=== PATIENT | female | born 1940 | race Caucasian/White ===

== ENCOUNTER 2017-03-23 11:45 | Emergency (ER) | payer MEDICARE, OTHER ==
[2017-03-23 11:56] VITALS: BP 126/83
[2017-03-23] MEDS ORDERED: Sodium Chloride 0.9% 10 ML Syringe FLUSH PRN (12:03)
--- NOTE | 2017-03-23 12:15 | EDM.PDOC ---
ED HPI GENERAL MEDICAL PROBLEM - General Chief Complaint: Syncope Stated Complaint: [facility] Time Seen by Provider: 03/23/17 12:00 Source of Information: Reports: Patient, EMS, Significant Other History Limitations: Reports: Other (patient has dementia) - History of Present Illness INITIAL COMMENTS - FREE TEXT/NARRATIVE: 76-year-old female presents via [facility] for evaluation and treatment of a syncopal episode. The patient reports blacking out. Patient is pleasantly demented and cannot provide much additional history. Per EMS report she was found by [facility] alf staff on the ground. She was initially very confused. Her is present with her in the ER. He reports that she was more confused than normal. She is complaining of a slight headache but states she often gets headaches. No chest pain, shortness of breath , abdominal pain, nausea or vomiting. [facility] [place] [facility] [place] . She has a past medical history of atrial ablation is and is on Coumadin. Patient also had a valve replaced in 2016. Headache Pain Score (Numeric/FACES): 4 - Related Data Allergies Allergy/AdvReac Type Severity Reaction Status Date / Time GAL Inhibitors Allergy Swelling Verified 05/16/16 10:54 amoxicillin Allergy Hives Verified 05/16/16 10:54 Sulfa (Sulfonamide Allergy Cannot Verified 09/30/16 07:17 Antibiotics) Remember sulfacetamide Allergy Cannot Verified 05/16/16 10:54 Remember Home Meds: Home Meds Rosuvastatin [Crestor] 5 mg PO DAILY 08/10/15 [History] Acetaminophen [Tylenol] 650 mg PO Q4H PRN 12/29/15 [History] Furosemide [Lasix] 40 mg PO DAILY 12/29/15 [History] Metoprolol Tartrate 12.5 mg PO BID 12/29/15 [History] Pantoprazole [Protonix] 40 mg PO BID 12/29/15 [History] Potassium Chloride 20 meq PO BID 12/29/15 [History] Diltiazem [Cardizem CD] 120 mg PO DAILY #30 cap.cd 01/25/16 [Rx] Levothyroxine [Synthroid] 50 mcg PO ACBREAKFAST 03/23/17 [History] Sertraline [Zoloft] 25 mg PO DAILY 03/23/17 [History] Warfarin Sodium [Jantoven] 1 mg PO TU 03/23/17 [History] Warfarin Sodium [Jantoven] 2 mg PO DAILY 03/23/17 [History] Past Medical History HEENT History: Reports: Cataract Other HEENT History: macular pucker Cardiovascular History: Reports: Afib, High Cholesterol, Hypertension Respiratory History: Reports: SOB Gastrointestinal History: Reports: Chronic Constipation 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: Neurological History: Reports: Migraines Psychiatric History: Reports: Anxiety, Depression Oncologic (Cancer) History: Reports: Other (See Below) Other Oncologic History: 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 - Infectious Disease History Infectious Disease History: Reports: Chicken Pox, Measles, Mumps - Past Surgical History Cardiovascular Surgical History: Reports: Valve Replacement Female Surgical History: Reports: Hysterectomy Oncologic Surgical History: Reports: Bone Marrow Aspiration Social & Family History - Family History Family Medical History: Noncontributory Cardiac: Reports: Cardiomyopathy, Heart Failure, [place] Other Cardiac Family History: son [place], mother CHF GI: Reports: Other (See Below) Other GI Family History: father had part of intenstine removed : Reports: Renal Disease/Insufficiency Other Family History: mother OBGYN: Reports: Neurological: Reports: CVA Other Neurological Family History: father Endocrine/Metabolic: Reports: Diabetes, type II Other Endocrine/Metabolic Family History: mother Oncologic: Reports: Colon Other Oncologic Family History: father - Tobacco Use Smoking Status *Q: Never Smoker Second Hand Smoke Exposure: No - Caffeine Use Caffeine Use: Reports: Coffee - Recreational Drug Use Recreational Drug Use: No - Living Situation & Occupation Living situation: Reports: , with Spouse ED ROS GENERAL - Review of Systems Review Of Systems: See Below Constitutional: Denies: Fever Respiratory: Denies: Shortness of Breath Cardiovascular: Denies: Chest Pain GI/Abdominal: Denies: Abdominal Pain, Nausea, Vomiting Neurological: Reports: Headache (minor), Syncope - Physical Exam Exam: See Below Exam Limited By: No Limitations General Appearance: Alert, WD/WN, No Apparent Distress Eye Exam: Bilateral Eye: EOMI, PERRL Ears: Normal External Exam Nose: Normal Inspection Throat/Mouth: Normal Inspection, Normal Lips, Normal Voice, No Airway Compromise Neck: Normal Inspection Respiratory/Chest: No Respiratory Distress, Lungs Clear, Normal Breath Sounds Cardiovascular: Systolic Murmur, Irregularly Irregular GI/Abdominal: Soft, Non-Tender Neuro Exam (Abbreviated): Alert, Oriented, Normal Cognition Psychiatric: Normal Affect, Normal Mood Skin Exam: Warm, Dry, Normal Color EKG INTERPRETATION EKG Date: 03/23/17 Time: 12:00 Rhythm: A-Flutter Rate (Beats/Min): 93 Baldwin: Normal P-Wave: Present QRS: LBBB ST-T: Normal QT: Normal Comparison: No Change EKG Interpretation Comments: A.flutter at 93 bpm. LBBB. No cahgne from EKG 09-30-16 Repeat EKG at 17:28 shows a.flutter at 67 bpm with variable conduction Reviewed by myself and Dr. Patel. Course - Vital Signs Last Recorded V/S: Last Vital Signs Temp 36.3 C 03/23/17 11:53 Pulse 91 03/23/17 11:53 Resp 19 03/23/17 11:53 BP 126/83 03/23/17 11:53 Pulse Ox 94 L 03/23/17 11:53 Orthostatic Blood Pressure [ 116/72 Standing] Orthostatic Blood Pressure [ 118/69 Supine] - Orders/Labs/Meds Orders: Active Orders 24 hr Category Date Time Status Cardiac Monitoring [RC] . DIRECTED Care 03/23/17 12:01 Active EKG 12 Lead [EKG Documentation Completion] [RC] STAT Care 03/23/17 17:19 Active EKG Documentation Completion [RC] STAT Care 03/23/17 12:01 Active Orthostatic Vital Signs [RC] ASDIRECTED Care 03/23/17 15:10 Active Peripheral IV Care [RC] . DIRECTED Care 03/23/17 12:03 Active Peripheral IV Insertion Adult [OM.PC] Routine Oth 03/23/17 12:03 Ordered Labs: Laboratory Tests 03/23/17 03/23/17 03/23/17 Range/Units 12:30 12:30 12:30 WBC 4.98 (3.98-10.04) K/mm3 RBC 2.83 L (3.98-5.22) M/mm3 Hgb 9.7 L (11.2-15.7) gm/L Hct 32.3 L (34.1-44.9) % MCV 114.1 H (79.4-94.8) fl MCH 34.3 H (25.6-32.2) pg MCHC 30.0 L (32.2-35.5) g/dl RDW Std Deviation 67.5 H (36.4-46.3) fL Plt Count 703 H (182-369) K/mm3 MPV 10.8 (9.4-12.3) fl Neutrophils % (Manual) 70 H (40-60) % Band Neutrophils % 0 (0-10) % Lymphocytes % (Manual) 25 (20-40) % Atypical Lymphs % 0 % Monocytes % (Manual) 4 (2-10) % Eosinophils % (Manual) 1 (0.7-5.8) % Basophils % (Manual) 0 L (0.1-1.2) Platelet Estimate Marked inc Hypochromasia Moderate RBC Morph Comment Not Reportable PT 29.0 H (8.0-13.0) SECONDS INR 2.51 APTT 41 H (22-36) SECONDS Sodium 138 (136-145) mEq/L Potassium 4.2 (3.5-5.1) mEq/L Chloride 102 (98-107) mEq/L Carbon Dioxide 29 (21-32) mEq/L Anion Gap 11.2 (5-15) BUN 23 H (7-18) mg/dL Creatinine 1.0 (0.55-1.02) mg/dL Est Cr Clr Drug Dosing 40.68 mL/min Estimated GFR (MDRD) 54 (>60) mL/min BUN/Creatinine Ratio 23.0 H (14-18) Glucose 114 (83-115) mg/dL Calcium 9.1 (8.5-10.1) mg/dL Total Bilirubin 0.7 (0.2-1.0) mg/dL AST 44 H (15-37) U/L ALT 39 (14-59) U/L Alkaline Phosphatase 115 (46-116) U/L CK-MB (CK-2) 2.0 (0-3.6) ng/ml Troponin I 0.021 (0.00-0.056) ng/mL Nnd-D-Uwinyzbxnmo Pept 2385 H (0-450) pg/mL Total Protein 7.5 (6.4-8.2) g/dl Albumin 3.8 (3.4-5.0) g/dl Globulin 3.7 gm/dL Albumin/Globulin Ratio 1.0 (1-2) Urine Color (Yellow) Urine Appearance (Clear) Urine pH (5.0-8.0) Ur Specific Dalton (1.005-1.030) Urine Protein (Negative) Urine Glucose (UA) (Negative) Urine Ketones (Negative) Urine Occult Blood (Negative) Urine Nitrite (Negative) Urine Bilirubin (Negative) Urine Urobilinogen (0.2-1.0) Ur Leukocyte Esterase (Negative) Urine RBC (0-5) /hpf Urine WBC (0-5) /hpf Ur Epithelial Cells (0-5) /hpf Urine Bacteria (FEW) /hpf Urine Mucus (FEW) /hpf 03/23/17 Range/Units 14:55 WBC (3.98-10.04) K/mm3 RBC (3.98-5.22) M/mm3 Hgb (11.2-15.7) gm/L Hct (34.1-44.9) % MCV (79.4-94.8) fl MCH (25.6-32.2) pg MCHC (32.2-35.5) g/dl RDW Std Deviation (36.4-46.3) fL Plt Count (182-369) K/mm3 MPV (9.4-12.3) fl Neutrophils % (Manual) (40-60) % Band Neutrophils % (0-10) % Lymphocytes % (Manual) (20-40) % Atypical Lymphs % % Monocytes % (Manual) (2-10) % Eosinophils % (Manual) (0.7-5.8) % Basophils % (Manual) (0.1-1.2) Platelet Estimate Hypochromasia RBC Morph Comment PT (8.0-13.0) SECONDS INR APTT (22-36) SECONDS Sodium (136-145) mEq/L Potassium (3.5-5.1) mEq/L Chloride (98-107) mEq/L Carbon Dioxide (21-32) mEq/L Anion Gap (5-15) BUN (7-18) mg/dL Creatinine (0.55-1.02) mg/dL Est Cr Clr Drug Dosing mL/min Estimated GFR (MDRD) (>60) mL/min BUN/Creatinine Ratio (14-18) Glucose (83-115) mg/dL Calcium (8.5-10.1) mg/dL Total Bilirubin (0.2-1.0) mg/dL AST (15-37) U/L ALT (14-59) U/L Alkaline Phosphatase (46-116) U/L CK-MB (CK-2) (0-3.6) ng/ml Troponin I (0.00-0.056) ng/mL Otd-S-Nuucwhyhhrk Pept (0-450) pg/mL Total Protein (6.4-8.2) g/dl Albumin (3.4-5.0) g/dl Globulin gm/dL Albumin/Globulin Ratio (1-2) Urine Color Yellow (Yellow) Urine Appearance Clear (Clear) Urine pH 7.0 (5.0-8.0) Ur Specific Dalton 1.020 (1.005-1.030) Urine Protein 1+ H (Negative) Urine Glucose (UA) Negative (Negative) Urine Ketones Negative (Negative) Urine Occult Blood Negative (Negative) Urine Nitrite Negative (Negative) Urine Bilirubin Negative (Negative) Urine Urobilinogen 1.0 (0.2-1.0) Ur Leukocyte Esterase Negative (Negative) Urine RBC Not seen (0-5) /hpf Urine WBC 0-5 (0-5) /hpf Ur Epithelial Cells 0-5 (0-5) /hpf Urine Bacteria Not seen (FEW) /hpf Urine Mucus Not seen (FEW) /hpf Meds: Medications Discontinued Medications Generic Name Dose Route Start Last Admin Trade Name Lucianoq PRN Reason Stop Dose Admin Acetaminophen 650 mg 03/23/17 15:52 03/23/17 15:56 Tylenol PO 03/23/17 15:53 650 mg NOW ONE Administration Sodium Chloride 1,000 mls @ 75 mls/hr 03/23/17 17:45 03/23/17 17:44 Normal Saline IV 75 mls/hr ASDIRECTED ELOY Administration Sodium Chloride 10 ml 03/23/17 12:03 03/23/17 12:31 Saline Flush FLUSH 10 ml ASDIRECTED PRN Administration Keep Vein Open - Radiology Interpretation Free Text/Narrative:: Chest [address] Sparks: 1. Minimal blunting of the right lateral costophrenic angle compatible with minimal pleural effusion CT of the head without contrast impression per Dr. Sparks: 1. Minimal area of increased density next to the foramen of Monro. Uncertain if this is due to a small ill-defined colloid cyst of less likely minimal hemorrhage. Follow-up noncontrast head CT recommended in 48 hours to make sure findings are stable. 2. Mild senescent change as described. 3. Nothing acute is otherwise seen on noncontrast head CT exam. CT Results Date: 03/23/17 - Re-Assessments/Exams Free Text/Narrative Re-Assessment/Exam: 03/23/17 17:58 labs returned with the following. Sodium 138, potassium 4.2 and chloride 102. Glucose 114. Creatinine 1.0. With blood cell count 4.98, hemoglobin 9.7 and platelets are 73. Of note patient has a past medical history of MDS. She chronically has a low hemoglobin and elevated platelets. PTT 29, INR 2.51. PTT 41. BNP 2385. troponin 0.021, within normal limits. CK-MB within normal limits at 2.0. UA has 1+ protein. I have reviewed the labs, EKG and imaging results with the patient and her . I felt given her CT scan, the fact she is on Coumadin that she should be admitted to our hospital. I spoke with our hospitalist, Dr. Ruggiero, who agreed to the admission. I spoke with our radiologist, Dr. Garcia, regarding an MRI versus obtaining a repeat CT scanning 48 hours. He felt given our MRI capabilities here that it would not show up on MRI. He recommended the follow- up CT in 48 hours as stated in this report. while The patient was waiting to be transferred to the floor. She had an 8 second positive on telemetry followed up by a beat and then by an additional 4 second pause. She was lying down at that time. Did not seem that she passed out. Her heart rate then went down into the 40s. Of note she had been in the 80s to 90s prior to this happening. This was the first event in the ER. Occurred around 17:00. Dr. Ruggiero, hospitalist was made aware of this. She recommended that we transfer the patient to [facility], she may need a pacemaker. I spoke with hospitalist, Dr.Al Ervin, he recommended holding her medications and monitoring her over the weekend. I spoke with our hospitalist, Dr. Ruggiero, regarding this. She did not feel comfortable with this plan and requested transfer to [facility]. I called same [facility] back. The agreed to accept the patient. Patient will go by ambulance. Departure - Departure Time of Disposition: 18:25 Disposition: DC/Tfer to Acute Hospital 02 Condition: Serious Clinical Impression: Symptomatic bradycardia, Syncope - Discharge Information Forms: ED Department Discharge Additional Instructions: Patient to go by ground ambulance to Dr. Prateek Lilly accepting. Patient to be a direct admission. - My Orders Last 24 Hours: My Active Orders 03/23/17 12:01 Cardiac Monitoring [RC] . DIRECTED EKG Documentation Completion [RC] STAT 03/23/17 12:03 Peripheral IV Care [RC] . DIRECTED Peripheral IV Insertion Adult [OM.PC] Routine 03/23/17 15:10 Orthostatic Vital Signs [RC] ASDIRECTED 03/23/17 17:19 EKG 12 Lead [EKG Documentation Completion] [RC] STAT - Assessment/Plan Last 24 Hours: My Active Orders 03/23/17 12:01 Cardiac Monitoring [RC] . DIRECTED EKG Documentation Completion [RC] STAT 03/23/17 12:03 Peripheral IV Care [RC] . DIRECTED Peripheral IV Insertion Adult [OM.PC] Routine 03/23/17 15:10 Orthostatic Vital Signs [RC] ASDIRECTED 03/23/17 17:19 EKG 12 Lead [EKG Documentation Completion] [RC] STAT
--- NOTE | 2017-03-23 12:50 | CT ---
Head CT Technique: Multiple axial sections through the brain were obtained. Intravenous contrast was not utilized. Comparison: No prior head CT, previous MRI brain dated 04/04/15. Findings: Slight increased density seen next to the foramen of Monro. Uncertain if this represents an ill-defined small colloid cyst or less likely a minimal hemorrhage. No corresponding finding is seen on the MRI although given the characteristics of this, this could easily not show up on the MRI. Ventricles along the basal cisterns and sulci over convexities are mildly prominent. Minimal diminished density is noted within the periventricular white matter compatible with small vessel ischemic demyelination change. No other abnormal parenchymal densities are seen. No midline shift or mass effect is seen. Atherosclerotic calcification is seen within the vertebral vessels and within the carotid siphon. Bone window settings were reviewed showing no discrete calvarial abnormality. Impression: 1. Minimal area of increased density next to the foramen of Monro. As mentioned above, uncertain if this is due to a small ill-defined colloid cyst or less likely minimal hemorrhage. Follow-up noncontrast head CT recommended in 48 hours to make sure findings are stable. 2. Mild senescent change as described above. 3. Nothing acute is otherwise seen on noncontrast head CT exam. Diagnostic code #3
--- NOTE | 2017-03-23 13:22 | CR ---
Chest: Frontal view of the chest was obtained. Comparison: Previous chest x-ray of 09/30/16. Previous pleural effusion shows significant improvement from prior exam. Minimal blunting of the right lateral costophrenic angle remains. Slight scarring is noted within the left retrocardiac region. Lungs otherwise are clear. Sternotomy is noted for prosthetic heart valve. Bony structures are grossly intact. Impression: 1. Minimal blunting of the right lateral costophrenic angle compatible with minimal pleural effusion. 2. Other incidental findings as described above. Diagnostic code #2
[2017-03-23] MEDS ORDERED: Acetaminophen 325 MG Tab PO ONE (15:52)
[2017-03-23] MEDS ORDERED: Sodium Chloride 0.9% 1,000 ML IV SCH (17:45)
== END 2017-03-23 18:50 ==
LOC: JD.ED 11:45 → SUPCPDRO 11:45 → JD.ED 18:50
DX: R00.1 Bradycardia, unspecified (principal); R55 Syncope and collapse; I10 Essential (primary) hypertension; I48.91 Unspecified atrial fibrillation; R06.02 Shortness of breath; E78.00 Pure hypercholesterolemia, unspecified; F32.9 Major depressive disorder, single episode, unspecified; Z90.710 Acquired absence of both cervix and uterus; Z95.2 Presence of prosthetic heart valve; Z79.01 Long term (current) use of anticoagulants; Z79.899 Other long term (current) drug therapy; Z88.0 Allergy status to penicillin; Z88.1 Allergy status to other antibiotic agents; Z88.2 Allergy status to sulfonamides
CPT/HCPCS: 36415; 70450; 71010; 80053; 81001; 82553; 83880; 84484; 85025; 85610; 85730; 93005; 96360; 99285; A9270; J7040; J7050; 99284

== ENCOUNTER 2017-04-17 20:14 | Emergency (ER) | payer MEDICARE, OTHER ==
[2017-04-17 20:45] VITALS: BP 130/70
--- NOTE | 2017-04-17 22:43 | EDM.PDOC ---
ED HPI GENERAL MEDICAL PROBLEM - General Chief Complaint: Neurological Problem Stated Complaint: NOT HERSELF/HARD TIME BREATHING Time Seen by Provider: 04/17/17 20:43 Source of Information: Reports: Patient, Family (, daughter), RN Notes Reviewed History Limitations: Reports: Other (Confusion - likely dementia) - History of Present Illness INITIAL COMMENTS - FREE TEXT/NARRATIVE: The patient's and daughter states that the patient has been experiencing progressively worsening confusion since November 2015, when she had a porcine aortic valve replacement. On 03/26/2017 she underwent a pacemaker placement at [facility], and the family states that she has been progressively lethargic and weak since then. She stays in bed all day, and the has great difficulty getting her up. Today he was unable to convince the patient to get up, prompting this ED visit. They deny recent fever, nausea, vomiting, urinary symptoms, cough, or chest pain. The patient suffers from chronic constipation. The patient has chronic low back pain, and has not been able to get to the bathroom in time to urinate, therefore has had some urinary accidents. She is now wearing Depends. The patient's notes that the patient ordinarily takes both Lasix and potassium chloride, however, because of the urine situation, he withheld Lasix both yesterday and today. The patient is on supplemental oxygen, 2 L as needed. Her oxygen saturation here in the ED is 84% on room air, 93% on 2 L. The patient's PCP is Dr. Russell. - Related Data Allergies Allergy/AdvReac Type Severity Reaction Status Date / Time GAL Inhibitors Allergy Swelling Verified 05/16/16 10:54 amoxicillin Allergy Hives Verified 05/16/16 10:54 doxycycline Allergy Swelling Verified 04/17/17 22:20 Sulfa (Sulfonamide Allergy Cannot Verified 09/30/16 07:17 Antibiotics) Remember sulfacetamide Allergy Cannot Verified 05/16/16 10:54 Remember Home Meds: Home Meds Rosuvastatin [Crestor] 5 mg PO BEDTIME 08/10/15 [History] Acetaminophen [Tylenol] 650 mg PO Q4H PRN 12/29/15 [History] Furosemide [Lasix] 60 mg PO DAILY 12/29/15 [History] Metoprolol Tartrate 25 mg PO TID 12/29/15 [History] Pantoprazole [Protonix] 40 mg PO BID 12/29/15 [History] Potassium Chloride 20 meq PO DAILY 12/29/15 [History] Diltiazem [Cardizem CD] 120 mg PO DAILY #30 cap.cd 01/25/16 [Rx] Levothyroxine [Synthroid] 75 mcg PO ACBREAKFAST 03/23/17 [History] Sertraline [Zoloft] 25 mg PO DAILY 03/23/17 [History] Warfarin Sodium [Jantoven] 2 mg PO SUTUWETHSA 03/23/17 [History] Warfarin Sodium [Jantoven] 3 mg PO MOFR 03/23/17 [History] Sennosides/Docusate Sodium [Senna-Docusate Sodium] 8.6 - 50 mg PO DAILY [History] Past Medical History HEENT History: Reports: Impaired Vision (Macular degeneration) Cardiovascular History: Reports: Arrhythmia (A-fib/A-flutter), Heart Failure, High Cholesterol, Hypertension Gastrointestinal History: Reports: PUD STRIKER OUT History: Reports: Psychiatric History: Reports: Anxiety, Depression Endocrine/Metabolic History: Reports: Hypothyroidism Oncologic (Cancer) History: Reports: Other (See Below) (Myelodysplastic syndrome ) - Infectious Disease History Infectious Disease History: Reports: Chicken Pox, Measles, Mumps - Past Surgical History HEENT Surgical History: Reports: Oral Surgery ([place] teeth extraction), Tonsillectomy Cardiovascular Surgical History: Reports: Pacer (dual-chamber, 03/26/2017 at [facility]), Valve Replacement (porcine aortic, November 2015), Other (See Below) (Left artial appendage clip, November 2015) GI Surgical History: Reports: Appendectomy (possible incidental with hysterectomy) Female Surgical History: Reports: Hysterectomy, Salpingo-Oophorectomy Oncologic Surgical History: Reports: Bone Marrow Aspiration Social & Family History - Family History Family Medical History: Noncontributory Cardiac: Reports: Cardiomyopathy, Heart Failure, [place] Other Cardiac Family History: son [place], mother CHF GI: Reports: Other (See Below) Other GI Family History: father had part of intenstine removed : Reports: Renal Disease/Insufficiency Other Family History: mother OBGYN: Reports: Neurological: Reports: CVA Other Neurological Family History: father Endocrine/Metabolic: Reports: Diabetes, type II Other Endocrine/Metabolic Family History: mother Oncologic: Reports: Colon Other Oncologic Family History: father - Tobacco Use Smoking Status *Q: Never Smoker Second Hand Smoke Exposure: No - Caffeine Use Caffeine Use: Reports: Coffee - Alcohol Use Alcohol Use History: No - Recreational Drug Use Recreational Drug Use: No - Living Situation & Occupation Living situation: Reports: , with Spouse Occupation: Retired ED ROS GENERAL - Review of Systems Review Of Systems: See Below Constitutional: Reports: Fatigue. Denies: Fever HEENT: Reports: No Symptoms Respiratory: Denies: Cough Cardiovascular: Denies: Chest Pain Endocrine: Reports: No Symptoms GI/Abdominal: Reports: Constipation (chronic). Denies: Diarrhea, Nausea, Vomiting : Denies: Dysuria Musculoskeletal: Reports: No Symptoms Skin: Reports: No Symptoms Neurological: Reports: Confusion Psychiatric: Reports: No Symptoms, Depression Hematologic/Lymphatic: Reports: No Symptoms Immunologic: Reports: No Symptoms ED EXAM, GENERAL - Physical Exam Exam: See Below Exam Limited By: No Limitations General Appearance: Alert, WD/WN, No Apparent Distress Eye Exam: Bilateral Eye: Normal Inspection Ears: Normal External Exam, Hearing Grossly Normal Nose: Normal Inspection, No Blood Throat/Mouth: Normal Inspection, Normal Lips, Normal Voice, No Airway Compromise Head: Atraumatic, Normocephalic Neck: Normal Inspection, Full Range of Motion Respiratory/Chest: No Respiratory Distress, Lungs Clear, No Accessory Muscle Use , Crackles (right baseonly, otherwise CTAB). No: Rhonchi, Wheezing Cardiovascular: Normal Peripheral Pulses, No Gallop, No JVD, No Murmur, No Rub, Irregularly Irregular. No: Tachycardia Peripheral Pulses: 4+: Radial (L), Radial (R) GI/Abdominal: Normal Bowel Sounds, Soft, Non-Tender, No Organomegaly, No Distention, No Abnormal Bruit, No Mass (Female) Exam: Deferred Rectal (Female) Exam: Deferred Back Exam: Normal Inspection, Full Range of Motion, NT Extremities: Normal Inspection, Normal Range of Motion, Normal Capillary Refill , Other (Bilateral lower extremity compression stockings with underlying mild edema) Neurological: Alert, No Motor/Sensory Deficits, Confused, Disoriented, Memory Loss Recent Events. No: Memory Loss Remote Events Psychiatric: Normal Affect Skin Exam: Warm, Dry, Intact, Normal Color, No Rash Lymphatic: No Adenopathy EKG INTERPRETATION EKG Date: 04/17/17 Time: 21:42 Rhythm: A-Flutter (Variable 3:1 to 4:1 conduction) Rate (Beats/Min): 95 [place]: LAD-Left [place]ondo Deviation P-Wave: Present QRS: Wide (LAFB) ST-T: Normal QT: Normal Comparison: No Change (03/23/2017) Course - Vital Signs Last Recorded V/S: Last Vital Signs Temp 37.0 C 04/17/17 20:43 Pulse 96 04/17/17 20:43 Resp 27 H 04/17/17 20:43 BP 130/70 04/17/17 20:43 Pulse Ox 97 04/17/17 20:43 - Orders/Labs/Meds Orders: Active Orders 24 hr Category Date Time Status EKG Documentation Completion [RC] STAT Care 04/17/17 21:07 Active Chest 1V Frontal [CR] Stat Exams 04/17/17 21:09 Taken Head wo Cont [CT] Stat Exams 04/17/17 21:09 Taken CULTURE BLOOD [BC] Stat Lab 04/17/17 21:30 Received CULTURE BLOOD [BC] Stat Lab 04/17/17 21:37 Received Blood Culture x2 Reflex Set [OM.PC] Stat Oth 04/17/17 21:07 Ordered Labs: Laboratory Tests 04/17/17 04/17/17 04/17/17 Range/Units 20:59 20:59 20:59 WBC 6.47 (3.98-10.04) K/mm3 RBC 2.80 L (3.98-5.22) M/mm3 Hgb 9.7 L (11.2-15.7) gm/L Hct 31.6 L (34.1-44.9) % MCV 112.9 H (79.4-94.8) fl MCH 34.6 H (25.6-32.2) pg MCHC 30.7 L (32.2-35.5) g/dl RDW Std Deviation 72.3 H (36.4-46.3) fL Plt Count 560 H (182-369) K/mm3 MPV 11.3 (9.4-12.3) fl Neutrophils % (Manual) 71 H (40-60) % Band Neutrophils % 0 (0-10) % Lymphocytes % (Manual) 16 L (20-40) % Atypical Lymphs % 0 % Monocytes % (Manual) 12 H (2-10) % Eosinophils % (Manual) 1 (0.7-5.8) % Basophils % (Manual) 0 L (0.1-1.2) Platelet Estimate Increased Plt Morphology Comment See note Poikilocytosis 2+ moderate Anisocytosis 1+ slight Tear Drop Cells 1+ slight Stomatocytes 1+ slight Helmet Cells 1+ slight RBC Morph Comment Not Reportable PT 54.8 H* (8.0-13.0) SECONDS INR 4.56 APTT 53 H (22-36) SECONDS D-Dimer, Quantitative 1.16 H (0.19-0.59) mg/L Puncture Site ABG pH (7.35-7.45) ABG pCO2 (35.0-45.0) mmHg ABG pO2 (80.0-100.0) mmHg ABG HCO3 (22.0-26.0) meq/L ABG O2 Saturation (96.0-97.0) % ABG Base Excess (-2-2.0) O2 Delivery Device Oxygen Flow Rate FiO2 (21.00-100.00) % Sodium 137 (136-145) mEq/L Potassium 4.2 (3.5-5.1) mEq/L Chloride 101 (98-107) mEq/L Carbon Dioxide 31 (21-32) mEq/L Anion Gap 9.2 (5-15) BUN 18 (7-18) mg/dL Creatinine 0.9 (0.55-1.02) mg/dL Est Cr Clr Drug Dosing 45.20 mL/min Estimated GFR (MDRD) > 60 (>60) mL/min BUN/Creatinine Ratio 20.0 H (14-18) Glucose 132 H (83-115) mg/dL Lactic Acid (0.4-2.0) mmol/L Calcium 9.6 (8.5-10.1) mg/dL Magnesium 2.2 (1.8-2.4) mg/dl Total Bilirubin 0.7 (0.2-1.0) mg/dL AST 31 (15-37) U/L ALT 31 (14-59) U/L Alkaline Phosphatase 153 H (46-116) U/L Troponin I 0.030 (0.00-0.056) ng/mL NT-Pro-B Natriuret Pep 3167 H (0-450) pg/mL Total Protein 7.9 (6.4-8.2) g/dl Albumin 3.4 (3.4-5.0) g/dl Globulin 4.5 gm/dL Albumin/Globulin Ratio 0.8 L (1-2) Urine Color (Yellow) Urine Appearance (Clear) Urine pH (5.0-8.0) Ur Specific [place] (1.005-1.030) Urine Protein (Negative) Urine Glucose (UA) (Negative) Urine Ketones (Negative) Urine Occult Blood (Negative) Urine Nitrite (Negative) Urine Bilirubin (Negative) Urine Urobilinogen (0.2-1.0) Ur Leukocyte Esterase (Negative) Urine RBC (0-5) /hpf Urine WBC (0-5) /hpf Ur Epithelial Cells (0-5) /hpf Urine Bacteria (FEW) /hpf Urine Mucus (FEW) /hpf 04/17/17 04/17/17 04/17/17 Range/Units 21:07 21:30 22:19 WBC (3.98-10.04) K/mm3 RBC (3.98-5.22) M/mm3 Hgb (11.2-15.7) gm/L Hct (34.1-44.9) % MCV (79.4-94.8) fl MCH (25.6-32.2) pg MCHC (32.2-35.5) g/dl RDW Std Deviation (36.4-46.3) fL Plt Count (182-369) K/mm3 MPV (9.4-12.3) fl Neutrophils % (Manual) (40-60) % Band Neutrophils % (0-10) % Lymphocytes % (Manual) (20-40) % Atypical Lymphs % % Monocytes % (Manual) (2-10) % Eosinophils % (Manual) (0.7-5.8) % Basophils % (Manual) (0.1-1.2) Platelet Estimate Plt Morphology Comment Poikilocytosis Anisocytosis Tear Drop Cells Stomatocytes Helmet Cells RBC Morph Comment PT (8.0-13.0) SECONDS INR APTT (22-36) SECONDS D-Dimer, Quantitative (0.19-0.59) mg/L Puncture Site Lt radial ABG pH 7.55 H (7.35-7.45) ABG pCO2 29.1 L (35.0-45.0) mmHg ABG pO2 93.0 (80.0-100.0) mmHg ABG HCO3 25.4 (22.0-26.0) meq/L ABG O2 Saturation 98.8 H (96.0-97.0) % ABG Base Excess 3.0 H (-2-2.0) O2 Delivery Device Nasal cannula Oxygen Flow Rate 2.0 FiO2 0.00 L (21.00-100.00) % Sodium (136-145) mEq/L Potassium (3.5-5.1) mEq/L Chloride (98-107) mEq/L Carbon Dioxide (21-32) mEq/L Anion Gap (5-15) BUN (7-18) mg/dL Creatinine (0.55-1.02) mg/dL Est Cr Clr Drug Dosing mL/min Estimated GFR (MDRD) (>60) mL/min BUN/Creatinine Ratio (14-18) Glucose (83-115) mg/dL Lactic Acid 0.9 (0.4-2.0) mmol/L Calcium (8.5-10.1) mg/dL Magnesium (1.8-2.4) mg/dl Total Bilirubin (0.2-1.0) mg/dL AST (15-37) U/L ALT (14-59) U/L Alkaline Phosphatase (46-116) U/L Troponin I (0.00-0.056) ng/mL NT-Pro-B Natriuret Pep (0-450) pg/mL Total Protein (6.4-8.2) g/dl Albumin (3.4-5.0) g/dl Globulin gm/dL Albumin/Globulin Ratio (1-2) Urine Color Yellow (Yellow) Urine Appearance Clear (Clear) Urine pH 6.5 (5.0-8.0) Ur Specific [place] 1.025 (1.005-1.030) Urine Protein 1+ H (Negative) Urine Glucose (UA) Negative (Negative) Urine Ketones Negative (Negative) Urine Occult Blood Negative (Negative) Urine Nitrite Negative (Negative) Urine Bilirubin 1+ H (Negative) Urine Urobilinogen 4.0 H (0.2-1.0) Ur Leukocyte Esterase Negative (Negative) Urine RBC 0-5 (0-5) /hpf Urine WBC 0-5 (0-5) /hpf Ur Epithelial Cells 0-5 (0-5) /hpf Urine Bacteria Not seen (FEW) /hpf Urine Mucus Not seen (FEW) /hpf - Re-Assessments/Exams Free Text/Narrative Re-Assessment/Exam: 04/17/17 22:10 Portable chest radiograph reviewed. There is cardiomegaly, but no pulmonary vascular congestion to suggest decompensated CHF. No pleural effusions seen on this AP view. No focal infiltrate. No pneumothorax. Elevated right hemidiaphragm noted. Sternotomy wires noted. Radiopaque left atrial appendage clip and prosthetic heart valve hardware noted. RA and RV chamber pacemaker noted on the left. Formal read per the Radiologist pending. 04/17/17 22:36 CT of the head without contrast is read by [facility] as "No acute findings". 04/17/17 22:48 The patient's D-dimer is elevated at 1.16, however, her INR is supratherapeutic at 4.56. 04/17/17 23:35 Test results discussed at length with the patient's and daughter. Today' s workup demonstrates acute respiratory alkalosis on the ABG, likely due to anxiety. The patient's refusal to get out of bed at home is likely related to depression. The patient's states that she was off her antidepressant for some time, only restarted about 2 weeks ago. These medicines often take 3 or 4 weeks before they become effective. In addition, the patient likely has dementia. The remainder of her workup is unremarkable. As above, she has modest anemia, around her baseline. Her BNP is elevated, but her chest radiograph is not consistent with decompensated CHF. I am not recommending any change in her management at this time. I do not see an indication for admission to the hospital. I am recommending follow-up with Dr. Russell this week, if possible. Departure - Departure Time of Disposition: 23:37 Disposition: Home, Self-Care 01 Condition: Good Clinical Impression: Depression with anxiety, Anemia, Dementia CHF (congestive heart failure) Qualifiers: Congestive heart failure type: diastolic Congestive heart failure chronicity: acute on chronic Qualified Code(s): I50.33 - Acute on chronic diastolic ( congestive) heart failure Atrial flutter Qualifiers: Atrial flutter type: unspecified Qualified Code(s): I48.92 - Unspecified atrial flutter - Discharge Information Instructions: Hyperventilation Referrals: Arsalan Russell MD [Primary Care Provider] - Forms: ED Department Discharge Additional Instructions: Mrs. Merritt was seen in the emergency room for confusion, lethargy, and generalized weakness. Workup in the ER included blood work, an ABG, 2 sets of blood cultures, a urinalysis, an ECG, a chest x-ray, and a CT scan of her head. Her workup showed that she has been hyperventilating, likely due to anxiety. Her ECG showed that she is in atrial flutter. Her INR (coumadin number) was found to be supratherapeutic at 4.56. You have already been instructed to withhold her Coumadin for 1 day. The remainder of her workup was unremarkable. She does not have pneumonia, a urinary tract infection, electrolyte abnormalities, a stroke, or a recent heart attack. Her unwillingness to get out of bed is likely related to depression, and she is likely suffering from dementia. We recommend you have her follow-up with Dr. Russell this week, if possible. If any other problems, please do not hesitate to return Mrs. Merritt to the ER. - My Orders Last 24 Hours: My Active Orders 04/17/17 21:07 EKG Documentation Completion [RC] STAT Blood Culture x2 Reflex Set [OM.PC] Stat 04/17/17 21:09 Chest 1V Frontal [CR] Stat Head wo Cont [CT] Stat 04/17/17 21:30 CULTURE BLOOD [BC] Stat 04/17/17 21:37 CULTURE BLOOD [BC] Stat - Assessment/Plan Last 24 Hours: My Active Orders 04/17/17 21:07 EKG Documentation Completion [RC] STAT Blood Culture x2 Reflex Set [OM.PC] Stat 04/17/17 21:09 Chest 1V Frontal [CR] Stat Head wo Cont [CT] Stat 04/17/17 21:30 CULTURE BLOOD [BC] Stat 04/17/17 21:37 CULTURE BLOOD [BC] Stat
--- NOTE | 2017-04-18 07:17 | CT ---
Head CT Technique: Multiple axial sections through the brain were obtained. Intravenous contrast was not utilized. Comparison: Previous head CT study of 03/23/17. Findings: Ventricles along with basal cisterns and sulci over the convexities are mildly prominent. Well-defined area of increased density seen next to the foramen of [place]ro which is felt compatible with a small colloid cyst. Minimal basal ganglia calcification is seen. Slight diminished density is noted within portions of the periventricular and subcortical white matter compatible with small vessel ischemic demyelination change. No other abnormal parenchymal densities are seen. No evidence of intracranial hemorrhage. No midline shift or mass effect is seen. No discrete calvarial abnormality is seen. Visualized sinuses are clear. Impression: 1. Senescent change and other incidental findings. Nothing acute is appreciated on noncontrast head CT study. Diagnostic code #3 Agree with preliminary report issued by [facility] ([facility] preliminary report dictated on 04/17/17, 11:23 PM Central Time)
--- NOTE | 2017-04-18 07:17 | CR ---
Chest: Frontal view of the chest was obtained. Comparison: Previous chest x-ray of 03/23/17. Heart is enlarged. Previous sternotomy for prosthetic heart valve. Elevated right hemidiaphragm is seen which appears chronic. Blunting of the right lateral costophrenic angle is seen which is stable. Central lung markings are increased which are also stable. Pacemaker is noted. Bony structures are grossly intact. Impression: 1. Numerous findings which appear to be stable from prior chest x-ray. Interval placement of pacemaker from prior exam. 2. Nothing acute is seen. Diagnostic code #2
== END 2017-04-17 23:58 | disposition home or self-care (01) ==
LOC: JD.ED 20:14
DX: I11.0 Hypertensive heart disease with heart failure (principal); I50.33 Acute on chronic diastolic (congestive) heart failure; I48.92 Unspecified atrial flutter; F41.8 Other specified anxiety disorders; D64.9 Anemia, unspecified; F03.90 Unspecified dementia, unspecified severity, without behavioral disturbance, psychotic disturbance, mood disturbance, and anxiety; E78.00 Pure hypercholesterolemia, unspecified; E03.9 Hypothyroidism, unspecified; Z98.890 Other specified postprocedural states; Z95.2 Presence of prosthetic heart valve; Z90.49 Acquired absence of other specified parts of digestive tract; Z90.710 Acquired absence of both cervix and uterus; Z79.899 Other long term (current) drug therapy; Z88.2 Allergy status to sulfonamides; Z88.1 Allergy status to other antibiotic agents; Z88.8 Allergy status to other drugs, medicaments and biological substances
CPT/HCPCS: 36415; 36600; 70450; 71010; 80053; 81001; 82803; 83605; 83735; 83880; 84484; 85025; 85379; 85610; 85730; 87040; 93005; 99285; P9612; 93010

== ENCOUNTER 2017-08-29 16:16 | Emergency (ER) | payer MEDICARE, OTHER ==
--- NOTE | 2017-08-29 16:44 | EDM.PDOC ---
ED HPI GENERAL MEDICAL PROBLEM - General Chief Complaint: Respiratory Problem Stated Complaint: LOW OXYGEN LEVELS Time Seen by Provider: 08/29/17 16:31 Source of Information: Reports: Patient, Family () History Limitations: Reports: Altered Mental Status (Patient with dementia) - History of Present Illness INITIAL COMMENTS - FREE TEXT/NARRATIVE: The patient's states that a home health nurse was evaluating the patient today, and that she was unable to find a finger that demonstrated an SpO2 over 79% with the patient on her usual 2 L of oxygen per NC. The patient's states that he was able to find a saturation of 88% this morning. The patient has chronic dyspnea, which does not appear to be different. No recent cough or fever. The patient's states that the patient has a right pleural effusion secondary to CHF. She underwent a pleurodesis in June, but that by July it had reaccumulated. Here in the ED, the patient's SpO2 is around 88%, although her fingers appear to be cyanotic, and her plethysmograph is poor. The patient's PCP is Dr. Russell. - Related Data Allergies Allergy/AdvReac Type Severity Reaction Status Date / Time GAL Inhibitors Allergy Swelling Verified 05/16/16 10:54 amoxicillin Allergy Hives Verified 05/16/16 10:54 doxycycline Allergy Swelling Verified 04/17/17 22:20 Sulfa (Sulfonamide Allergy Cannot Verified 09/30/16 07:17 Antibiotics) Remember sulfacetamide Allergy Cannot Verified 05/16/16 10:54 Remember Home Meds: Home Meds Rosuvastatin [Crestor] 5 mg PO BEDTIME 08/10/15 [History] Furosemide [Lasix] 80 mg PO DAILY 12/29/15 [History] Metoprolol Tartrate 25 mg PO TID 12/29/15 [History] Pantoprazole [Protonix] 40 mg PO BID 12/29/15 [History] Potassium Chloride 20 meq PO DAILY 12/29/15 [History] Diltiazem [Cardizem CD] 120 mg PO DAILY #30 cap.cd 01/25/16 [Rx] Levothyroxine [Synthroid] 75 mcg PO ACBREAKFAST 03/23/17 [History] Sertraline [Zoloft] 50 mg PO DAILY 03/23/17 [History] Warfarin Sodium [Jantoven] 1 mg PO SUTUTHSA 03/23/17 [History] Warfarin Sodium [Jantoven] 2 mg PO MOWEFR 03/23/17 [History] Cholecalciferol (Vitamin D3) [Vitamin D3] 1,000 unit PO DAILY 08/29/17 [History] Past Medical History HEENT History: Reports: Impaired Vision Cardiovascular History: Reports: Arrhythmia (A-fib, A-flutter), Heart Failure, High Cholesterol, Hypertension Respiratory History: Reports: Other (See Below) (Recurrent right pleural effusion) Gastrointestinal History: Reports: [employer] History: Reports: Neurological History: Reports: Alzheimers Disease Psychiatric History: Reports: Anxiety, Depression Endocrine/Metabolic History: Reports: Hypothyroidism Oncologic (Cancer) History: Reports: Other (See Below) (Myelodysplastic syndrome ) - Infectious Disease History Infectious Disease History: Reports: Chicken Pox, Measles, Mumps - Past Surgical History HEENT Surgical History: Reports: Oral Surgery ([place] teeth extraction), Tonsillectomy Cardiovascular Surgical History: Reports: Pacer (Dual-chamber, 03/26/2017 at [facility]), Valve Replacement (Porcine aortic, November 2015), Other (See Below) (Left atrial appendage clip, November 2015) GI Surgical History: Reports: Appendectomy (Possible incidental with hysterectomy) Female Surgical History: Reports: Hysterectomy, Salpingo-Oophorectomy Oncologic Surgical History: Reports: Bone Marrow Aspiration Social & Family History - Family History Family Medical History: Noncontributory Cardiac: Reports: Cardiomyopathy, Heart Failure, MA Other Cardiac Family History: son MA, mother CHF GI: Reports: Other (See Below) Other GI Family History: father had part of intenstine removed : Reports: Renal Disease/Insufficiency Other Family History: mother OBGYN: Reports: Neurological: Reports: CVA Other Neurological Family History: father Endocrine/Metabolic: Reports: Diabetes, type II Other Endocrine/Metabolic Family History: mother Oncologic: Reports: Colon Other Oncologic Family History: father - Tobacco Use Smoking Status *Q: Never Smoker Second Hand Smoke Exposure: No - Caffeine Use Caffeine Use: Reports: Coffee - Alcohol Use Alcohol Use History: No - Recreational Drug Use Recreational Drug Use: No - Living Situation & Occupation Living situation: Reports: , with Spouse Occupation: Retired ED ROS GENERAL - Review of Systems Review Of Systems: ROS reveals no pertinent complaints other than HPI. ED EXAM, GENERAL - Physical Exam Exam: See Below Exam Limited By: No Limitations General Appearance: Alert, WD/WN, No Apparent Distress Eye Exam: Bilateral Eye: Normal Inspection Ears: Normal External Exam, Hearing Grossly Normal Nose: Normal Inspection, No Blood Throat/Mouth: Normal Inspection, Normal Lips, Normal Voice, No Airway Compromise Head: Atraumatic, Normocephalic Neck: Normal Inspection, Full Range of Motion Respiratory/Chest: No Respiratory Distress, No Accessory Muscle Use, Decreased Breath Sounds (Bilateral, especially on the right), Other (Dullness to percussion on the right to approximately 2/3 up.) Cardiovascular: Normal Peripheral Pulses, Regular Rate, Rhythm (V-paced on monitor), No Gallop, No JVD, No Murmur, No Rub Peripheral Pulses: 3+: Radial (L), Radial (R) GI/Abdominal: Normal Bowel Sounds, Soft, Non-Tender, No Organomegaly, No Distention, No Abnormal Bruit, No Mass (Female) Exam: Deferred Rectal (Female) Exam: Deferred Back Exam: Normal Inspection, Full Range of Motion, NT Extremities: Normal Inspection, Normal Range of Motion, Normal Capillary Refill , Other (Cool fingers with moderate cyanosis, bilaterally. Bilateral pretibial edema, Rt > Lt.) Neurological: Alert, No Motor/Sensory Deficits, Confused Psychiatric: Normal Affect Skin Exam: Dry, Intact, No Rash EKG INTERPRETATION EKG Date: 08/29/17 Time: 16:25 Rhythm: A-Fib (with ventricular pacing) Rate (Beats/Min): 62 Comparison: Change From Previous EKG (04/17/2017 had atrial flutter with variable conduction) Course - Vital Signs Last Recorded V/S: Last Vital Signs Temp 36.5 C 08/29/17 16:23 Pulse 64 08/29/17 16:23 Resp 24 H 08/29/17 16:23 BP 119/54 L 08/29/17 16:23 Pulse Ox 84 L 08/29/17 16:23 - Orders/Labs/Meds Orders: Active Orders 24 hr Category Date Time Status CULTURE BLOOD [BC] Stat Lab 08/29/17 17:00 Received CULTURE BLOOD [BC] Stat Lab 08/29/17 17:10 Received D-DIMER QUANTITATIVE [COAG] Stat Lab 08/29/17 16:31 Received INR,PT,PROTHROMBIN TIME [COAG] Stat Lab 08/29/17 16:31 Received PTT,PARTIAL THROMBOPLSTIN TIME [COAG] Stat Lab 08/29/17 16:31 Received Blood Culture x2 Reflex Set [OM.PC] Stat Oth 08/29/17 16:31 Ordered EKG 12 Lead [EK] Stat Ther 08/29/17 16:29 Stop Req Labs: Laboratory Tests 08/29/17 08/29/17 08/29/17 Range/Units 16:31 16:35 16:57 WBC 4.39 (3.98-10.04) K/mm3 RBC 2.55 L (3.98-5.22) M/mm3 Hgb 9.4 L (11.2-15.7) gm/L Hct 32.6 L (34.1-44.9) % MCV 127.8 H (79.4-94.8) fl MCH 36.9 H (25.6-32.2) pg MCHC 28.8 L (32.2-35.5) g/dl RDW Std Deviation 73.4 H (36.4-46.3) fL Plt Count 369 (182-369) K/mm3 MPV 11.6 (9.4-12.3) fl Neutrophils % (Manual) 75 H (40-60) % Band Neutrophils % 0 (0-10) % Lymphocytes % (Manual) 18 L (20-40) % Atypical Lymphs % 1 % Monocytes % (Manual) 6 (2-10) % Eosinophils % (Manual) 0 L (0.7-5.8) % Basophils % (Manual) 0 L (0.1-1.2) Platelet Estimate Adequate Plt Morphology Comment Normal Polychromasia 1+ slight Poikilocytosis 1+ slight Anisocytosis 2+ moderate Microcytosis 1+ slight Macrocytosis 1+ slight RBC Morph Comment Abnormal Puncture Site Rt radial ABG pH 7.38 (7.35-7.45) ABG pCO2 67.6 H (35.0-45.0) mmHg ABG pO2 56.0 L (80.0-100.0) mmHg ABG HCO3 39.3 H (22.0-26.0) meq/L ABG O2 Saturation 86.8 L (96.0-97.0) % ABG Base Excess 12.6 H (-2-2.0) Alden Test Positive A-a Gradient 52 mmHg O2 Delivery Device Nasal cannula Oxygen Flow Rate 2.5 FiO2 30.00 (21.00-100.00) % Sodium 146 H (136-145) mEq/L Potassium 4.8 (3.5-5.1) mEq/L Chloride 103 (98-107) mEq/L Carbon Dioxide 41 H* (21-32) mEq/L Anion Gap 6.8 (5-15) BUN 23 H (7-18) mg/dL Creatinine 0.8 (0.55-1.02) mg/dL Est Cr Clr Drug Dosing 41.63 mL/min Estimated GFR (MDRD) > 60 (>60) mL/min BUN/Creatinine Ratio 28.8 H (14-18) Glucose 107 (83-115) mg/dL Lactic Acid (0.4-2.0) mmol/L Calcium 9.0 (8.5-10.1) mg/dL Total Bilirubin 1.0 (0.2-1.0) mg/dL AST 46 H (15-37) U/L ALT 29 (14-59) U/L Alkaline Phosphatase 115 (46-116) U/L Troponin I 0.035 (0.00-0.056) ng/mL NT-Pro-B Natriuret Pep 4906 H (0-450) pg/mL Total Protein 7.7 (6.4-8.2) g/dl Albumin 3.4 (3.4-5.0) g/dl Globulin 4.3 gm/dL Albumin/Globulin Ratio 0.8 L (1-2) 18 Range/Units 17:00 WBC (3.98-10.04) K/mm3 RBC (3.98-5.22) M/mm3 Hgb (11.2-15.7) gm/L Hct (34.1-44.9) % MCV (79.4-94.8) fl MCH (25.6-32.2) pg MCHC (32.2-35.5) g/dl RDW Std Deviation (36.4-46.3) fL Plt Count (182-369) K/mm3 MPV (9.4-12.3) fl Neutrophils % (Manual) (40-60) % Band Neutrophils % (0-10) % Lymphocytes % (Manual) (20-40) % Atypical Lymphs % % Monocytes % (Manual) (2-10) % Eosinophils % (Manual) (0.7-5.8) % Basophils % (Manual) (0.1-1.2) Platelet Estimate Plt Morphology Comment Polychromasia Poikilocytosis Anisocytosis Microcytosis Macrocytosis RBC Morph Comment Puncture Site ABG pH (7.35-7.45) ABG pCO2 (35.0-45.0) mmHg ABG pO2 (80.0-100.0) mmHg ABG HCO3 (22.0-26.0) meq/L ABG O2 Saturation (96.0-97.0) % ABG Base Excess (-2-2.0) Alden Test A-a Gradient mmHg O2 Delivery Device Oxygen Flow Rate FiO2 (21.00-100.00) % Sodium (136-145) mEq/L Potassium (3.5-5.1) mEq/L Chloride (98-107) mEq/L Carbon Dioxide (21-32) mEq/L Anion Gap (5-15) BUN (7-18) mg/dL Creatinine (0.55-1.02) mg/dL Est Cr Clr Drug Dosing mL/min Estimated GFR (MDRD) (>60) mL/min BUN/Creatinine Ratio (14-18) Glucose (83-115) mg/dL Lactic Acid 1.0 (0.4-2.0) mmol/L Calcium (8.5-10.1) mg/dL Total Bilirubin (0.2-1.0) mg/dL AST (15-37) U/L ALT (14-59) U/L Alkaline Phosphatase (46-116) U/L Troponin I (0.00-0.056) ng/mL NT-Pro-B Natriuret Pep (0-450) pg/mL Total Protein (6.4-8.2) g/dl Albumin (3.4-5.0) g/dl Globulin gm/dL Albumin/Globulin Ratio (1-2) - Re-Assessments/Exams Free Text/Narrative Re-Assessment/Exam: 08/29/17 17:25 Two-view chest radiograph reviewed. There is cardiomegaly, but minimal pulmonary vascular congestion. There is a moderate right sided pleural effusion , and the right hemidiaphragm is elevated. No focal infiltrate. No pneumothorax. A dual-chamber left-sided pacemaker is noted. A left atrial appendage clip and annular ring, consistent with a tissue aortic valve replacement, and sternotomy wires are noted. There is osteopenia, and a wedge deformity of a lower thoracic vertebrae. Formal read per the Radiologist pending. Today's chest radiograph was compared with 2 prior AP chest radiographs, from 04/17/2017 and 03/23/2017. In those prior portal chest radiographs, the right hemidiaphragm is clearly visible, with only a meniscus sign to suggest a small right-sided pleural effusion. 08/29/17 17:32 Notified by lab that the blood specimen was hemolyzed, therefore the potassium and anion gap are reading high. The patient's ABG demonstrates either a fully compensated chronic respiratory acidosis versus a fully compensated metabolic alkalosis, versus a mixed respiratory acidosis and metabolic alkalosis. Her oxygen saturation is 86.8% on 2.5 L O2. 08/29/17 17:52 The patient's D-dimer has returned significantly elevated at 1.73. The patient is on Coumadin, however, with an INR therapeutic at 2.3. It does not appear that the patient's oxygen saturation is significantly depressed. It appears that her hands are cold and poorly perfused, giving a low SpO2 reading. With respect to the patient's pleural effusion, it is not causing the patient any respiratory embarrassment, therefore an emergent thoracentesis is not indicated. The patient does not need to be hospitalized. 08/29/17 18:06 The above was discussed with the patient's . I will have patient follow- up with her Cardiothoracic Surgeon, Dr. Law, who has been managing the patient 's recurrent right-sided pleural effusion. I have pushed today's chest radiograph images to [facility]. Departure - Departure Time of Disposition: 18:07 Disposition: Home, Self-Care 01 Condition: Fair Clinical Impression: Recurrent right pleural effusion - Discharge Information Referrals: Arsalan Russell MD [Primary Care Provider] - Maverick Law MD [Ordering Only Provider] - Forms: ED Department Discharge Additional Instructions: Brenda was seen in the emergency room a low reading on her oxygen saturation meter. Workup in the ER included blood work, 2 sets of blood cultures, an arterial blood gas, an ECG, and a chest x-ray. Her workup shows that she has a pleural effusion on the right side to about half way up. Her oxygen saturation reading has been low because her fingers are cold. You will get a more accurate reading if you warm her fingers first. Continue to supply supplemental oxygen at 3 L per nasal cannula. Follow-up with your Cardiothoracic Surgeon, Dr. Maverick Law, at the next available appointment, for evaluation and possible drainage of her right sided pleural effusion. If any other problems, including worsening shortness of breath, please do not hesitate to return Brenda to the ER. - My Orders Last 24 Hours: My Active Orders 08/29/17 16:31 D-DIMER QUANTITATIVE [COAG] Stat INR,PT,PROTHROMBIN TIME [COAG] Stat PTT,PARTIAL THROMBOPLSTIN TIME [COAG] Stat Blood Culture x2 Reflex Set [OM.PC] Stat 08/29/17 17:00 CULTURE BLOOD [BC] Stat 08/29/17 17:10 CULTURE BLOOD [BC] Stat - Assessment/Plan Last 24 Hours: My Active Orders 08/29/17 16:31 D-DIMER QUANTITATIVE [COAG] Stat INR,PT,PROTHROMBIN TIME [COAG] Stat PTT,PARTIAL THROMBOPLSTIN TIME [COAG] Stat Blood Culture x2 Reflex Set [OM.PC] Stat 08/29/17 17:00 CULTURE BLOOD [BC] Stat 08/29/17 17:10 CULTURE BLOOD [BC] Stat
--- NOTE | 2017-08-29 17:18 | CR ---
Chest: Two views of the chest are obtained. Comparison: Prior chest x-ray of 04/17/17. Right sided pleural effusion is seen with elevated right hemidiaphragm. Heart is enlarged. Sternotomy is noted. Prosthetic heart valve. Pacemaker is seen. Lung markings are slightly increased which appear more prominent on the left side than on previous exam. Findings may represent mild pulmonary vascular congestion. Bony structures are osteopenic. Fairly severe compression deformity is seen at the thoracolumbar junction which has occurred in the interim from 2014. Impression: 1. Right-sided pleural effusion with elevated right hemidiaphragm. 2. Cardiomegaly and mild pulmonary vascular congestion. 3. Other nonacute findings as noted above. Diagnostic code #3
[2017-08-29 18:47] VITALS: BP 130/70
== END 2017-08-29 18:40 | disposition home or self-care (01) ==
LOC: JD.ED 16:16
DX: J90 Pleural effusion, not elsewhere classified (principal); E78.00 Pure hypercholesterolemia, unspecified; I50.9 Heart failure, unspecified; Z88.1 Allergy status to other antibiotic agents; Z88.2 Allergy status to sulfonamides; Z79.899 Other long term (current) drug therapy; Z79.01 Long term (current) use of anticoagulants
CPT/HCPCS: 36415; 36600; 71046; 71046-26; 80053; 82803; 83605; 83880; 84484; 85025; 85379; 85610; 85730; 87040; 93005; 93010; 99284; 99284-25

== ENCOUNTER 2018-01-30 11:38 | Observation (INO) | payer MEDICARE, OTHER ==
[2018-01-30] MEDS ORDERED: Sodium Chloride 0.9% 10 ML Syringe FLUSH PRN (12:12)
[2018-01-30] MEDS: Sodium Chloride 0.9% 1,000 ML IV SCH ×2 (12:27→19:49)
--- NOTE | 2018-01-30 12:43 | EDM.PDOC ---
ED HPI GENERAL MEDICAL PROBLEM - General Chief Complaint: Head Injury Stated Complaint: [facility] Time Seen by Provider: 01/30/18 11:47 Source of Information: Reports: Patient, Family (), RN Notes Reviewed - History of Present Illness INITIAL COMMENTS - FREE TEXT/NARRATIVE: 77-year-old female presents to ED having suffered syncopal event at home. Patient has dementia, not able to give an accurate history of what happened. Her was in the home, heard her fall and when he found her she was lying on the floor. She Thinks she tripped on a rug but we really do not know if that is truly what happened. She is on Coumadin. She is on 3 different medications for hypertension. She has hx of a fib, has hx of heart valve replacement about 4 yrs ago. She did hit her right for head hard enough to have an area of swelling and bruising. Her states there was no LOC, she was awake upon his immediate arrival. She does have very mild right frontal headache. There's been no nausea or vomiting. She denies chest pain or difficulty breathing. She denies abdominal pelvic or hip discomfort. She is noted to have relatively low blood pressure on arrival to ED. states that she was ill the past 2 days with abd pain, vomiting and diarrhea that is now better today. - Related Data Allergies Allergy/AdvReac Type Severity Reaction Status Date / Time GAL Inhibitors Allergy Swelling Verified 01/30/18 11:48 amoxicillin Allergy Hives Verified 01/30/18 11:48 doxycycline Allergy Swelling Verified 01/30/18 11:48 Sulfa (Sulfonamide Allergy Cannot Verified 01/30/18 11:48 Antibiotics) Remember sulfacetamide Allergy Cannot Verified 01/30/18 11:48 Remember Home Meds: Home Meds Rosuvastatin [Crestor] 10 mg PO BEDTIME 08/10/15 [History] Furosemide [Lasix] 80 mg PO DAILY 12/29/15 [History] Metoprolol Tartrate 25 mg PO TID 12/29/15 [History] Pantoprazole [Protonix] 40 mg PO BID 12/29/15 [History] Potassium Chloride 20 meq PO BID 12/29/15 [History] Diltiazem [Cardizem CD] 120 mg PO DAILY #30 cap.cd 01/25/16 [Rx] Levothyroxine [Synthroid] 75 mcg PO ACBREAKFAST 03/23/17 [History] Sertraline [Zoloft] 50 mg PO DAILY 03/23/17 [History] Warfarin Sodium [Jantoven] 2 mg PO DAILY 03/23/17 [History] Cholecalciferol (Vitamin D3) [Vitamin D3] 1,000 unit PO DAILY 08/29/17 [History] Acetaminophen 325 mg PO Q4H PRN 01/30/18 [History] Metolazone 2.5 mg PO TUFR 01/30/18 [History] Past Medical History HEENT History: Reports: Impaired Vision Other HEENT History: macular pucker Cardiovascular History: Reports: Arrhythmia, Heart Failure, High Cholesterol, Hypertension Respiratory History: Reports: Other (See Below) (Recurrent right pleural effusion) Gastrointestinal History: Reports: [employer] History: Reports: Neurological History: Reports: Alzheimers Disease Psychiatric History: Reports: Anxiety, Depression Endocrine/Metabolic History: Reports: Hypothyroidism Oncologic (Cancer) History: Reports: Other (See Below) Other Oncologic History: 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 - Infectious Disease History Infectious Disease History: Reports: Chicken Pox, Measles, Mumps - Past Surgical History HEENT Surgical History: Reports: Oral Surgery, Tonsillectomy Cardiovascular Surgical History: Reports: Pacer, Valve Replacement GI Surgical History: Reports: Appendectomy Female Surgical History: Reports: Hysterectomy, Salpingo-Oophorectomy Oncologic Surgical History: Reports: Bone Marrow Aspiration Social & Family History - Family History Family Medical History: Noncontributory Cardiac: Reports: Cardiomyopathy, Heart Failure, NV Other Cardiac Family History: son [place], mother CHF GI: Reports: Other (See Below) Other GI Family History: father had part of intenstine removed : Reports: Renal Disease/Insufficiency Other Family History: mother OBGYN: Reports: Neurological: Reports: CVA Other Neurological Family History: father Endocrine/Metabolic: Reports: Diabetes, type II Other Endocrine/Metabolic Family History: mother Oncologic: Reports: Colon Other Oncologic Family History: father - Tobacco Use Smoking Status *Q: Never Smoker - Caffeine Use Caffeine Use: Reports: None - Recreational Drug Use Recreational Drug Use: No - Living Situation & Occupation Living situation: Reports: , with Spouse Occupation: Retired ED ROS GENERAL - Review of Systems Review Of Systems: See Below Constitutional: Denies: Fever, Chills, Diaphoresis HEENT: Reports: Other (Contusion injury right for head) Respiratory: Denies: Shortness of Breath, Pleuritic Chest Pain Cardiovascular: Denies: Chest Pain GI/Abdominal: Denies: Nausea, Vomiting Musculoskeletal: Denies: Neck Pain, Shoulder Pain, Arm Pain, Back Pain, Leg Pain , Joint Pain Skin: Reports: Bruising (Area of bruising right for head) Neurological: Reports: Confusion (Moderate, chronic), Headache (Mild). Denies: Trouble Speaking, Weakness ED EXAM, HEAD INJURY - Physical Exam Exam: See Below General Appearance: Alert, No Apparent Distress Head: Other (There is an area of moderate bruising and swelling right for head, no bony tenderness of the head or face). No: Mederos's Sign Eyes: Bilateral Eye: PERRL Ears: Normal External Exam, Normal Canal Nose: Normal Inspection Throat/Mouth: Normal Inspection Neck: Non-Tender, Full Range of Motion Respiratory: No Respiratory Distress, Lungs Clear, Normal Breath Sounds Cardiovascular: Regular Rate, Rhythm GI/Abdominal Exam: Soft, Non-Tender Extremities: Normal Inspection, Normal Range of Motion, Other (Mild tenderness right hip and right pelvis). No: Leg Pain Neurologic: No Motor/Sensory Deficits (Hips and pelvis nontender, good hip and lower extremity range of motion), Other (Moderate confusion, cooperative with exam, does answer simple questions but answers are at times obviously inaccurate ). No: Motor Weakness Skin: Normal Color, Warm/Dry Course - Vital Signs Last Recorded V/S: Last Vital Signs Temp 97.6 F 01/30/18 11:46 Pulse 62 01/30/18 11:46 Resp 26 H 01/30/18 11:46 BP 102/50 L 01/30/18 11:46 Pulse Ox 95 01/30/18 11:46 Orthostatic Blood Pressure [ 73/54 Standing] Orthostatic Blood Pressure [ 103/51 Sitting] Orthostatic Blood Pressure [ 109/49 Supine] - Orders/Labs/Meds Orders: Active Orders 24 hr Category Date Time Status Patient Status [ADT] Routine ADT 01/30/18 17:40 Active EKG 12 Lead [EKG Documentation Completion] [RC] STAT Care 01/30/18 12:11 Active Peripheral IV Care [RC] . DIRECTED Care 01/30/18 12:12 Active Chest 1V Frontal [CR] Stat Exams 01/30/18 16:00 Taken Hip Min 2V or 3V w Pelvis Rt [CR] Stat Exams 01/30/18 14:08 Taken Sodium Chloride 0.9% [Normal Saline] 1,000 ml Med 01/30/18 12:15 Active IV ASDIRECTED Sodium Chloride 0.9% [Normal Saline] 1,000 ml Med 01/30/18 15:00 Active IV ASDIRECTED Sodium Chloride 0.9% [Saline Flush] Med 01/30/18 12:12 Active 10 ml FLUSH ASDIRECTED PRN Peripheral IV Insertion Adult [OM.PC] Stat Oth 01/30/18 12:11 Ordered Medication Orders Sodium Chloride (Normal Saline) 1,000 mls @ 150 mls/hr IV ASDIRECTED ELOY Last Admin: 01/30/18 12:27 Dose: 150 mls/hr Sodium Chloride (Normal Saline) 1,000 mls @ 999 mls/hr IV ASDIRECTED ELOY Stop: 02/03/18 14:57 Sodium Chloride (Saline Flush) 10 ml FLUSH ASDIRECTED PRN PRN Reason: Keep Vein Open Last Admin: 01/30/18 12:27 Dose: 10 ml Labs: Laboratory Tests 01/30/18 01/30/18 01/30/18 Range/Units 12:00 12:00 12:00 WBC 4.43 (3.98-10.04) K/mm3 RBC 2.39 L (3.98-5.22) M/mm3 Hgb 8.9 L (11.2-15.7) gm/L Hct 29.7 L (34.1-44.9) % MCV 124.3 H (79.4-94.8) fl MCH 37.2 H (25.6-32.2) pg MCHC 30.0 L (32.2-35.5) g/dl RDW Std Deviation 67.2 H (36.4-46.3) fL Plt Count 442 H (182-369) K/mm3 MPV 11.0 (9.4-12.3) fl Neut % (Auto) 65.2 (34.0-71.1) % Lymph % (Auto) 16.3 L (19.3-51.7) % Patrick % (Auto) 16.7 H (4.7-12.5) % Eos % (Auto) 1.6 (0.7-5.8) Baso % (Auto) 0.0 L (0.1-1.2) % Neut # (Auto) 2.89 (1.56-6.13) K/mm3 Lymph # (Auto) 0.72 L (1.18-3.74) K/mm3 Patrick # (Auto) 0.74 H (0.24-0.36) K/mm3 Eos # (Auto) 0.07 (0.04-0.36) K/mm3 Baso # (Auto) 0.00 L (0.01-0.08) K/mm3 Manual Slide Review Abnormal smear PT 27.9 H (9.5-12.1) SECONDS INR 2.61 Sodium 139 (136-145) mEq/L Potassium 4.0 (3.5-5.1) mEq/L Chloride 100 (98-107) mEq/L Carbon Dioxide 34 H (21-32) mEq/L Anion Gap 9.0 (5-15) BUN 55 H (7-18) mg/dL Creatinine 1.1 H (0.55-1.02) mg/dL Est Cr Clr Drug Dosing 30.79 mL/min Estimated GFR (MDRD) 48 (>60) mL/min BUN/Creatinine Ratio 50.0 H (14-18) Glucose 108 (83-115) mg/dL Calcium 9.0 (8.5-10.1) mg/dL Total Bilirubin 0.8 (0.2-1.0) mg/dL AST 30 (15-37) U/L ALT 26 (14-59) U/L Alkaline Phosphatase 91 (46-116) U/L Total Protein 7.6 (6.4-8.2) g/dl Albumin 3.4 (3.4-5.0) g/dl Globulin 4.2 gm/dL Albumin/Globulin Ratio 0.8 L (1-2) Mycoplasma pneumon IgM (NEGATIVE) 01/30/18 Range/Units 12:00 WBC (3.98-10.04) K/mm3 RBC (3.98-5.22) M/mm3 Hgb (11.2-15.7) gm/L Hct (34.1-44.9) % MCV (79.4-94.8) fl MCH (25.6-32.2) pg MCHC (32.2-35.5) g/dl RDW Std Deviation (36.4-46.3) fL Plt Count (182-369) K/mm3 MPV (9.4-12.3) fl Neut % (Auto) (34.0-71.1) % Lymph % (Auto) (19.3-51.7) % Patrick % (Auto) (4.7-12.5) % Eos % (Auto) (0.7-5.8) Baso % (Auto) (0.1-1.2) % Neut # (Auto) (1.56-6.13) K/mm3 Lymph # (Auto) (1.18-3.74) K/mm3 Patrick # (Auto) (0.24-0.36) K/mm3 Eos # (Auto) (0.04-0.36) K/mm3 Baso # (Auto) (0.01-0.08) K/mm3 Manual Slide Review PT (9.5-12.1) SECONDS INR Sodium (136-145) mEq/L Potassium (3.5-5.1) mEq/L Chloride (98-107) mEq/L Carbon Dioxide (21-32) mEq/L Anion Gap (5-15) BUN (7-18) mg/dL Creatinine (0.55-1.02) mg/dL Est Cr Clr Drug Dosing mL/min Estimated GFR (MDRD) (>60) mL/min BUN/Creatinine Ratio (14-18) Glucose (83-115) mg/dL Calcium (8.5-10.1) mg/dL Total Bilirubin (0.2-1.0) mg/dL AST (15-37) U/L ALT (14-59) U/L Alkaline Phosphatase (46-116) U/L Total Protein (6.4-8.2) g/dl Albumin (3.4-5.0) g/dl Globulin gm/dL Albumin/Globulin Ratio (1-2) Mycoplasma pneumon IgM Negative (NEGATIVE) Meds: Medications Generic Name Dose Route Start Last Admin Trade Name Freq PRN Reason Stop Dose Admin Sodium Chloride 1,000 mls @ 150 mls/hr 01/30/18 12:15 01/30/18 12:27 Normal Saline IV 150 mls/hr ASDIRECTED ELOY Administration Sodium Chloride 1,000 mls @ 999 mls/hr 01/30/18 15:00 Normal Saline IV 02/03/18 14:57 ASDIRECTED ELOY Sodium Chloride 10 ml 01/30/18 12:12 01/30/18 12:27 Saline Flush FLUSH 10 ml ASDIRECTED PRN Administration Keep Vein Open - Re-Assessments/Exams Free Text/Narrative Re-Assessment/Exam: 01/30/18 15:35. BP has continue to run primarily in the 90's systolic which whe has tolerated fairly well at rest. She has been in a paced rhythm, rate running around 60. There's been no vomiting or diarrhea while here in the ED. No complaint of chest or abdominal pain. I was not aware of the vomiting diarrhea problem initially but realizing that she likely is at least moderately volume depleted. We have been running a normal saline at 150 an hour, we did just give at 250 bolus short time ago since she now is has had around 750 mL of volume replacement. Orthosis a very short time ago showed a sitting blood pressure 103/51, dropped to about 73/54 standing. Being on metoprolol and diltiazem she is not able to raise her heart rate to help maintain a standing blood pressure with her history of CHF fluid replacement needs to be very careful. Therefore she is not a safe candidate to go home at this time. She and her lived at [facility] assisted living. She will be at a strong risk for fall, further injury if she were to fall again. Departure - Departure Time of Disposition: 15:11 Disposition: Refer to Observation Condition: Fair Clinical Impression: Near syncope Fall Qualifiers: Encounter type: initial encounter Qualified Code(s): W19.XXXA - Unspecified fall, initial encounter Hypotension Qualifiers: Hypotension type: unspecified hypotension type Qualified Code(s): I95.9 - Hypotension, unspecified Forehead contusion Qualifiers: Encounter type: initial encounter Qualified Code(s): S00.83XA - Contusion of other part of head, initial encounter - Discharge Information - My Orders Last 24 Hours: My Active Orders 01/30/18 12:11 EKG 12 Lead [EKG Documentation Completion] [RC] STAT Peripheral IV Insertion Adult [OM.PC] Stat 01/30/18 12:12 Peripheral IV Care [RC] . DIRECTED Sodium Chloride 0.9% [Saline Flush] 10 ml FLUSH ASDIRECTED PRN 01/30/18 12:15 Sodium Chloride 0.9% [Normal Saline] 1,000 ml IV ASDIRECTED 01/30/18 14:08 Hip Min 2V or 3V w Pelvis Rt [CR] Stat 01/30/18 15:00 Sodium Chloride 0.9% [Normal Saline] 1,000 ml IV ASDIRECTED 01/30/18 16:00 Chest 1V Frontal [CR] Stat 01/30/18 17:40 Patient Status [ADT] Routine - Assessment/Plan Last 24 Hours: My Active Orders 01/30/18 12:11 EKG 12 Lead [EKG Documentation Completion] [RC] STAT Peripheral IV Insertion Adult [OM.PC] Stat 01/30/18 12:12 Peripheral IV Care [RC] . DIRECTED Sodium Chloride 0.9% [Saline Flush] 10 ml FLUSH ASDIRECTED PRN 01/30/18 12:15 Sodium Chloride 0.9% [Normal Saline] 1,000 ml IV ASDIRECTED 01/30/18 14:08 Hip Min 2V or 3V w Pelvis Rt [CR] Stat 01/30/18 15:00 Sodium Chloride 0.9% [Normal Saline] 1,000 ml IV ASDIRECTED 01/30/18 16:00 Chest 1V Frontal [CR] Stat 01/30/18 17:40 Patient Status [ADT] Routine
--- NOTE | 2018-01-30 14:49 | CT ---
Head CT Technique: Multiple axial sections through the brain were obtained. Intravenous contrast was not utilized. Comparison: Previous head CT exam of 04/17/17. Findings: Ventricles long of basal cisterns and sulci over the convexities are mildly prominent. Small hyperdense area is seen near the foramen of Moran which is stable from previous exam compatible with a small colloid cyst. Slight basal ganglia calcification is seen. Minimal diminished density noted within the periventricular white matter and subcortical white matter compatible with small vessel ischemic demyelination change. So-called empty sella is noted. Atherosclerotic calcifications seen within the carotid siphon and within the vertebral vessels. No other abnormal parenchymal densities are seen. No evidence of intracranial hemorrhage. No midline shift or mass effect is seen. Soft tissue swelling is noted within the right frontal scalp. No acute calvarial abnormality is seen. Fluid is identified within the right maxillary sinus. Mild mucosal thickening is seen within a portion of the ethmoid sinus. No acute calvarial abnormality is seen. Impression: 1. Incidental findings as noted above. No significant change is seen from prior head CT study with the exception of mild soft tissue swelling within the right frontal scalp. 2. Nothing acute is seen. Diagnostic code #2
[2018-01-30] MEDS ORDERED: Sodium Chloride 0.9% 1,000 ML IV SCH (15:00)
[2018-01-30] MEDS ORDERED: Polyethylene Glycol 3350 Powder 17 GM Packet PO PRN (20:45)
[2018-01-30] MEDS ORDERED: Magnesium Hydroxide 400 MG/5 ML Susp 30 ML Cup PO PRN (20:45)
[2018-01-30] MEDS ORDERED: HYDROmorphone 0.5 MG/0.5 ML SYRINGE IVPUSH PRN (20:45)
[2018-01-30] MEDS ORDERED: Temazepam 7.5 MG Cap PO PRN (20:45)
[2018-01-30] MEDS ORDERED: Docusate Sodium 100 MG Cap PO PRN (20:45)
[2018-01-30] MEDS ORDERED: Bisacodyl 5 MG Tab PO PRN (20:45)
[2018-01-30] MEDS ORDERED: Acetaminophen 325 MG Tab PO PRN (20:45)
[2018-01-30] MEDS ORDERED: Acetaminophen/oxyCODONE 325-5 MG Tab PO PRN (20:45)
[2018-01-30] MEDS ORDERED: Promethazine 6.25 MG in Sodium Chloride 0.9% 50 ML IV PRN (20:45)
[2018-01-30] MEDS ORDERED: Promethazine 25 MG Tab PO PRN (20:45)
[2018-01-30] MEDS ORDERED: Non-Formulary Medication 1 Each (Rosuvastatin [Crestor] 10 MG) PO SCH (21:00)
--- NOTE | 2018-01-30 21:40 | PCM.HP ---
H&P History of Present Illness - General Date of Service: 01/30/18 Admit Problem/Dx: Admission Diagnosis/Problem Admission Diagnosis/Problem Dehydration Source of Information: Provider History Limitations: Reports: No Limitations (Slightly confused- h/o Alzheimer's ) - History of Present Illness Initial Comments - Free Text/Narative: HPI: This is a 77 yo female with past medical hx/o Afib on coumadin, CHF, SD, heart valve replacement x4 yrs ago, hypothyroid, PUD, HLD, HTN, Alzheimer's, depression, chemotherapy for leukemia who comes in for Dehydration/Syncope/ Fall. She complains of headache and some abdominal pain after being ill the past 2 days with vomiting and diarrhea. She has no fever, chills, chest pain, shortness of breath, or GI/ complaints. Her symptoms slightly improved after receiving fluids in the ED. Her initial workup in the ED showed a CBC remarkable for RBC 2.39, Hgb 8.9, HCT 29.7, MCV 124.3, MCH 37.2, MCHC 30, RDW 67.2, Plt 442, lymph 16.3%, Weld 16.7%. Her coagulation study shows PT of 27.9, INR of 2.61. Her chemistry is remarkable for CO2 34, BUN 55, CR 1.1. EKG showed Afib/Aflutter. Orthostatics were positive. Chest X-ray, Hip X-ray and CT of head shows no acute abnormal findings. She is subsequently admitted to the medical floor for observation. She is a full code. Her PCP is Dr. Arsalan Russell. - Related Data Allergies/Adverse Reactions: Allergies Allergy/AdvReac Type Severity Reaction Status Date / Time AGL Inhibitors Allergy Swelling Verified 01/30/18 11:48 amoxicillin Allergy Hives Verified 01/30/18 11:48 doxycycline Allergy Swelling Verified 01/30/18 11:48 Sulfa (Sulfonamide Allergy Cannot Verified 01/30/18 11:48 Antibiotics) Remember sulfacetamide Allergy Cannot Verified 01/30/18 11:48 Remember Home Medications: Home Meds Rosuvastatin [Crestor] 5 mg PO BEDTIME 08/10/15 [History] Furosemide [Lasix] 80 mg PO DAILY 12/29/15 [History] Metoprolol Tartrate 25 mg PO TID 12/29/15 [History] Pantoprazole [Protonix] 40 mg PO BID 12/29/15 [History] Potassium Chloride 20 meq PO BID 12/29/15 [History] Diltiazem [Cardizem CD] 120 mg PO DAILY #30 cap.cd 01/25/16 [Rx] Levothyroxine [Synthroid] 75 mcg PO ACBREAKFAST 03/23/17 [History] Sertraline [Zoloft] 50 mg PO DAILY 03/23/17 [History] Warfarin Sodium [Jantoven] 2 mg PO SUMOWETHFRSA 03/23/17 [History] Acetaminophen 325 mg PO Q4H PRN 01/30/18 [History] Metolazone 2.5 mg PO TUFR 01/30/18 [History] Warfarin Sodium [Jantoven] 1 mg PO TU 01/30/18 [History] Past Medical History HEENT History: Reports: Impaired Vision Other HEENT History: macular pucker Cardiovascular History: Reports: Arrhythmia, Heart Failure, High Cholesterol, Hypertension Respiratory History: Reports: Other (See Below) (Recurrent right pleural effusion) Gastrointestinal History: Reports: [employer] History: Reports: Neurological History: Reports: Alzheimers Disease Psychiatric History: Reports: Anxiety, Depression Endocrine/Metabolic History: Reports: Hypothyroidism Oncologic (Cancer) History: Reports: Other (See Below) Other Oncologic History: 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 - Infectious Disease History Infectious Disease History: Reports: Chicken Pox, Measles, Mumps - Past Surgical History HEENT Surgical History: Reports: Oral Surgery, Tonsillectomy Cardiovascular Surgical History: Reports: Pacer, Valve Replacement GI Surgical History: Reports: Appendectomy Female Surgical History: Reports: Hysterectomy, Salpingo-Oophorectomy Oncologic Surgical History: Reports: Bone Marrow Aspiration Social & Family History - Family History Family Medical History: Noncontributory Cardiac: Reports: Cardiomyopathy, Heart Failure, SD Other Cardiac Family History: son SD, mother CHF GI: Reports: Other (See Below) Other GI Family History: father had part of intenstine removed : Reports: Renal Disease/Insufficiency Other Family History: mother OBGYN: Reports: Neurological: Reports: CVA Other Neurological Family History: father Endocrine/Metabolic: Reports: Diabetes, type II Other Endocrine/Metabolic Family History: mother Oncologic: Reports: Colon Other Oncologic Family History: father - Tobacco Use Smoking Status *Q: Never Smoker - Caffeine Use Caffeine Use: Reports: None - Recreational Drug Use Recreational Drug Use: No - Living Situation & Occupation Living situation: Reports: , with Spouse Occupation: Retired H&P Review of Systems - Review of Systems: Review Of Systems: See Below General: Reports: Weakness. Denies: Fever, Chills HEENT: Reports: No Symptoms Pulmonary: Reports: No Symptoms. Denies: Shortness of Breath Cardiovascular: Reports: Syncope. Denies: Chest Pain, Edema Gastrointestinal: Reports: Abdominal Pain (mild), Nausea (improved). Denies: Diarrhea, Vomiting Genitourinary: Reports: No Symptoms Musculoskeletal: Reports: No Symptoms Skin: Reports: No Symptoms Psychiatric: Reports: Confusion (h/o Alzheimer's, is oriented x 3), Depression, Anxiety Neurological: Reports: Confusion, Syncope Hematologic/Lymphatic: Reports: Easy Bleeding (on coumadin), Easy Bruising (on coumadin) Immunologic: Reports: No Symptoms Exam - Exam Exam: See Below - Vital Signs Vital Signs: Last Vital Signs Temp 98.8 F 01/30/18 20:08 Pulse 64 01/30/18 20:08 Resp 18 01/30/18 20:08 BP 102/49 L 01/30/18 20:08 Pulse Ox 96 01/30/18 20:08 Orthostatic Blood Pressure [ 73/54 Standing] Orthostatic Blood Pressure [ 103/51 Sitting] Orthostatic Blood Pressure [ 109/49 Supine] Weight: 102 lb - Exam Quality Assessment: Supplemental Oxygen (2L nasal cannula), DVT Prophylaxis General: Alert, Oriented (x3), Cooperative, Other (confused, h/o alzheimer's) HEENT: PERRLA, Hearing Intact, Mucosa Moist & [place], Nares Patent, Normal Nasal Septum, Posterior Pharynx Clear, Conjunctiva Clear, EOMI, EACs Clear, TMs Clear Neck: Supple, Trachea Midline, 2 Lungs: Clear to Auscultation, Normal Respiratory Effort Cardiovascular: Regular Rate, Irregular Rhythm (afib) GI/Abdominal Exam: Normal Bowel Sounds, Soft, Non-Tender, No Organomegaly, No Distention, No Abnormal Bruit, No Mass, Pelvis Stable (Female) Exam: Deferred Rectal (Female) Exam: Deferred Back Exam: Normal Inspection, Full Range of Motion, NT Extremities: Normal Inspection, Normal Range of Motion, Non-Tender, No Pedal Edema, Normal Capillary Refill Peripheral Pulses: 2+: Posterior Tibial (L), Posterior Tibial (R), Dorsalis Pedis (L), Dorsalis Pedis (R) Skin: Warm, Dry, Intact, Other (contusion to right forehead) Neurological: Cranial Nerves Intact (grossly) Neuro Extensive - Mental Status: Alert, Oriented x3, Normal Mood/Affect, Normal Cognition, Other (confused, h/o alzheimer's) Psychiatric: Alert, Normal Affect, Normal Mood - Patient Data Lab Results Last 24 hrs: Laboratory Results - last 24 hr 01/30/18 01/30/18 01/30/18 Range/Units 12:00 12:00 12:00 WBC 4.43 (3.98-10.04) K/mm3 RBC 2.39 L (3.98-5.22) M/mm3 Hgb 8.9 L (11.2-15.7) gm/L Hct 29.7 L (34.1-44.9) % MCV 124.3 H (79.4-94.8) fl MCH 37.2 H (25.6-32.2) pg MCHC 30.0 L (32.2-35.5) g/dl RDW Std Deviation 67.2 H (36.4-46.3) fL Plt Count 442 H (182-369) K/mm3 MPV 11.0 (9.4-12.3) fl Neut % (Auto) 65.2 (34.0-71.1) % Lymph % (Auto) 16.3 L (19.3-51.7) % Weld % (Auto) 16.7 H (4.7-12.5) % Eos % (Auto) 1.6 (0.7-5.8) Baso % (Auto) 0.0 L (0.1-1.2) % Neut # (Auto) 2.89 (1.56-6.13) K/mm3 Lymph # (Auto) 0.72 L (1.18-3.74) K/mm3 Weld # (Auto) 0.74 H (0.24-0.36) K/mm3 Eos # (Auto) 0.07 (0.04-0.36) K/mm3 Baso # (Auto) 0.00 L (0.01-0.08) K/mm3 Manual Slide Review Abnormal smear PT 27.9 H (9.5-12.1) SECONDS INR 2.61 Sodium 139 (136-145) mEq/L Potassium 4.0 (3.5-5.1) mEq/L Chloride 100 (98-107) mEq/L Carbon Dioxide 34 H (21-32) mEq/L Anion Gap 9.0 (5-15) BUN 55 H (7-18) mg/dL Creatinine 1.1 H (0.55-1.02) mg/dL Est Cr Clr Drug Dosing 30.79 mL/min Estimated GFR (MDRD) 48 (>60) mL/min BUN/Creatinine Ratio 50.0 H (14-18) Glucose 108 (83-115) mg/dL Calcium 9.0 (8.5-10.1) mg/dL Total Bilirubin 0.8 (0.2-1.0) mg/dL AST 30 (15-37) U/L ALT 26 (14-59) U/L Alkaline Phosphatase 91 (46-116) U/L Total Protein 7.6 (6.4-8.2) g/dl Albumin 3.4 (3.4-5.0) g/dl Globulin 4.2 gm/dL Albumin/Globulin Ratio 0.8 L (1-2) Mycoplasma pneumon IgM (NEGATIVE) 01/30/18 Range/Units 12:00 WBC (3.98-10.04) K/mm3 RBC (3.98-5.22) M/mm3 Hgb (11.2-15.7) gm/L Hct (34.1-44.9) % MCV (79.4-94.8) fl MCH (25.6-32.2) pg MCHC (32.2-35.5) g/dl RDW Std Deviation (36.4-46.3) fL Plt Count (182-369) K/mm3 MPV (9.4-12.3) fl Neut % (Auto) (34.0-71.1) % Lymph % (Auto) (19.3-51.7) % Weld % (Auto) (4.7-12.5) % Eos % (Auto) (0.7-5.8) Baso % (Auto) (0.1-1.2) % Neut # (Auto) (1.56-6.13) K/mm3 Lymph # (Auto) (1.18-3.74) K/mm3 Weld # (Auto) (0.24-0.36) K/mm3 Eos # (Auto) (0.04-0.36) K/mm3 Baso # (Auto) (0.01-0.08) K/mm3 Manual Slide Review PT (9.5-12.1) SECONDS INR Sodium (136-145) mEq/L Potassium (3.5-5.1) mEq/L Chloride (98-107) mEq/L Carbon Dioxide (21-32) mEq/L Anion Gap (5-15) BUN (7-18) mg/dL Creatinine (0.55-1.02) mg/dL Est Cr Clr Drug Dosing mL/min Estimated GFR (MDRD) (>60) mL/min BUN/Creatinine Ratio (14-18) Glucose (83-115) mg/dL Calcium (8.5-10.1) mg/dL Total Bilirubin (0.2-1.0) mg/dL AST (15-37) U/L ALT (14-59) U/L Alkaline Phosphatase (46-116) U/L Total Protein (6.4-8.2) g/dl Albumin (3.4-5.0) g/dl Globulin gm/dL Albumin/Globulin Ratio (1-2) Mycoplasma pneumon IgM Negative (NEGATIVE) Result Diagrams: 01/30/18 12:00 01/30/18 12:00 - Problem List (1) Fall SNOMED Code(s): 6961673, 072520969 ICD Code: W19.XXXA - UNSPECIFIED FALL, INITIAL ENCOUNTER Status: Acute Priority: High Current Visit: Yes Qualifiers: Encounter type: initial encounter Qualified Code(s): W19.XXXA - Unspecified fall, initial encounter (2) Forehead contusion SNOMED Code(s): 172726690 ICD Code: S00.83XA - CONTUSION OF OTHER PART OF HEAD, INITIAL ENCOUNTER Status: Acute Priority: High Current Visit: Yes Qualifiers: Encounter type: initial encounter Qualified Code(s): S00.83XA - Contusion of other part of head, initial encounter (3) Hypotension SNOMED Code(s): 68962554 ICD Code: I95.9 - HYPOTENSION, UNSPECIFIED Status: Acute Priority: High Current Visit: Yes Qualifiers: Hypotension type: unspecified hypotension type Qualified Code(s): I95.9 - Hypotension, unspecified (4) Near syncope SNOMED Code(s): 700913680 ICD Code: R55 - SYNCOPE AND COLLAPSE Status: Acute Priority: High Current Visit: Yes (5) Acute exacerbation of congestive heart failure SNOMED Code(s): 75428424 ICD Code: I50.9 - HEART FAILURE, UNSPECIFIED Status: Chronic Priority: Medium Current Visit: No Qualifiers: Heart failure type: unspecified Qualified Code(s): I50.9 - Heart failure, unspecified (6) Adverse effects of medication SNOMED Code(s): 45606395 ICD Code: T88.7XXA - UNSP ADVERSE EFFECT OF DRUG OR MEDICAMENT, INIT ENCNTR Status: Acute Priority: High Current Visit: No Qualifiers: Encounter type: initial encounter Qualified Code(s): T50.905A - Adverse effect of unspecified drugs, medicaments and biological substances, initial encounter (7) Anemia SNOMED Code(s): 871819025 ICD Code: D64.9 - ANEMIA, UNSPECIFIED Status: Chronic Priority: High Current Visit: No Qualifiers: Anemia type: unspecified type Qualified Code(s): D64.9 - Anemia, unspecified (8) Atrial fibrillation and flutter SNOMED Code(s): 045134561 ICD Code: I48.91 - UNSPECIFIED ATRIAL FIBRILLATION; I48.92 - UNSPECIFIED ATRIAL FLUTTER Status: Acute Priority: High Current Visit: Yes Problem List Initiated/Reviewed/Updated: Yes Orders Last 24hrs: Active Orders 24 hr Category Date Time Status Patient Status [ADT] Routine ADT 01/30/18 17:40 Active Bedrest Bathroom Privileges [RC] ASDIRECTED Care 01/30/18 20:45 Active Cardiac Monitoring [RC] INTERMITTENT Care 01/30/18 20:47 Active Height and Weight [RC] DAILY Care 01/30/18 20:45 Active Intake and Output [RC] QSHIFT Care 01/30/18 20:47 Active May Shower [RC] ASDIRECTED Care 01/30/18 20:45 Active Oxygen Therapy [RC] PRN Care 01/30/18 20:45 Active Pulse Oximetry [RC] PRN Care 01/30/18 20:47 Active Up With Assistance [RC] ASDIRECTED Care 01/30/18 20:45 Active Up ad Claritaz [RC] ASDIRECTED Care 01/30/18 20:45 Active VTE/DVT Education [RC] PER UNIT ROUTINE Care 01/30/18 20:45 Active Vital Signs [RC] Q4H Care 01/30/18 20:45 Active OT Evaluation and Treatment [CONS] Routine Cons 01/30/18 20:45 Active PT Evaluation and Treatment [CONS] Routine Cons 01/30/18 20:45 Active MAT INSPECTOR Evaluation and Treatment [CONS] Routine Cons 01/30/18 20:45 Active Clear Liquid Diet [DIET] Diet 01/31/18 Breakfast Ordered Chest 1V Frontal [CR] Stat Exams 01/30/18 16:00 Taken Echo Comp wo Cont [US] Routine Exams 01/31/18 05:11 Ordered Hip Min 2V or 3V w Pelvis Rt [CR] Stat Exams 01/30/18 14:08 Taken BASIC METABOLIC PANEL,BMP [CHEM] AM Lab 01/31/18 05:11 Ordered BASIC METABOLIC PANEL,BMP [CHEM] AM Lab 02/01/18 05:11 Ordered BASIC METABOLIC PANEL,BMP [CHEM] AM Lab 02/02/18 05:11 Ordered BASIC METABOLIC PANEL,BMP [CHEM] AM Lab 02/03/18 05:11 Ordered BASIC METABOLIC PANEL,BMP [CHEM] AM Lab 02/04/18 05:11 Ordered CBC WITH AUTO DIFF [HEME] AM Lab 01/31/18 05:11 Ordered CBC WITH AUTO DIFF [HEME] AM Lab 02/01/18 05:11 Ordered CBC WITH AUTO DIFF [HEME] AM Lab 02/02/18 05:11 Ordered CBC WITH AUTO DIFF [HEME] AM Lab 02/03/18 05:11 Ordered CBC WITH AUTO DIFF [HEME] AM Lab 02/04/18 05:11 Ordered CULTURE STOOL + SHIGATOX [RM] Routine Lab 01/30/18 20:55 Ordered MAGNESIUM [CHEM] AM Lab 01/31/18 05:11 Ordered MAGNESIUM [CHEM] AM Lab 02/01/18 05:11 Ordered MAGNESIUM [CHEM] AM Lab 02/02/18 05:11 Ordered MAGNESIUM [CHEM] AM Lab 02/03/18 05:11 Ordered MAGNESIUM [CHEM] AM Lab 02/04/18 05:11 Ordered UA W/MICROSCOPIC [URIN] Routine Lab 01/30/18 20:53 Ordered Acetaminophen [Tylenol] Med 01/30/18 20:45 Active 650 mg PO Q4H PRN Acetaminophen/oxyCODONE [Percocet 325-5 MG] Med 01/30/18 20:45 Active 0.5 tab PO Q4H PRN Bisacodyl [Dulcolax] Med 01/30/18 20:45 Active 5 mg PO DAILY PRN Cholecalciferol (Vitamin D3) [Vitamin D3] Med 01/31/18 09:00 Ordered 1,000 unit PO DAILY Diltiazem [Cardizem CD] Med 01/31/18 09:00 Ordered 120 mg PO DAILY Docusate Sodium [Colace] Med 01/30/18 20:45 Active 100 mg PO BID PRN Docusate Sodium/Sennosides [Senna Plus] Med 01/30/18 20:45 Active 1 tab PO BID PRN Furosemide [Lasix] Med 01/31/18 09:00 Ordered 80 mg PO DAILY HYDROmorphone [Dilaudid] Med 01/30/18 20:45 Active 0.25 mg IVPUSH Q2H PRN Levothyroxine [Synthroid] Med 01/31/18 06:00 Ordered 75 mcg PO ACBREAKFAST Magnesium Hydroxide [Milk of Magnesia] Med 01/30/18 20:45 Active 30 ml PO Q12H PRN Metolazone [Zaroxolyn] Med 02/01/18 20:37 Ordered 2.5 mg PO TUFR Metoprolol Tartrate [Lopressor] Med 01/31/18 09:00 Ordered 25 mg PO TID Pantoprazole [ProTONIX IV] Med 01/31/18 09:00 Active 40 mg IVPUSH DAILY Polyethylene Glycol 3350 [MiraLAX] Med 01/30/18 20:45 Active 17 gm PO DAILY PRN Potassium Chloride [Potassium Chloride] Med 01/30/18 21:00 Ordered 20 meq PO BID Promethazine [Phenergan] Med 01/30/18 20:45 Active 25 mg PO Q6H PRN Promethazine [Phenergan] 6.25 mg Med 01/30/18 20:45 Active Sodium Chloride 0.9% [Normal Saline] 50 ml IV Q6H Rosuvastatin [Crestor] Med 01/30/18 21:00 Ordered 10 mg PO BEDTIME Sertraline [Zoloft] Med 01/31/18 09:00 Ordered 50 mg PO DAILY Sodium Chloride 0.9% [Normal Saline] 1,000 ml Med 01/30/18 20:45 Active IV ASDIRECTED Sodium Chloride 0.9% [Saline Flush] Med 01/30/18 12:12 Active 10 ml FLUSH ASDIRECTED PRN Temazepam [Restoril] Med 01/30/18 20:45 Active 7.5 mg PO BEDTIME PRN Warfarin Sliding Scale [Coumadin Sliding Scale] Med 01/31/18 09:00 Pending DOSE each PO DAILY Peripheral IV Insertion Adult [OM.PC] Stat Oth 01/30/18 12:11 Ordered Code Status [Resuscitation Status] Routine Resus Stat 01/30/18 21:11 Ordered Medication Orders Acetaminophen (Tylenol) 650 mg PO Q4H PRN PRN Reason: Pain (Mild 1-3)/fever Bisacodyl (Dulcolax) 5 mg PO DAILY PRN PRN Reason: Constipation Diltiazem HCl (Cardizem Cd) 120 mg PO DAILY [facility] Docusate Sodium (Colace) 100 mg PO BID PRN PRN Reason: Constipation Furosemide (Lasix) 80 mg PO DAILY [facility] Hydromorphone HCl (Dilaudid) 0.25 mg IVPUSH Q2H PRN PRN Reason: Pain (severe 7-10) Promethazine HCl 6.25 mg/ (Sodium Chloride) 50.25 mls @ 100 mls/hr IV Q6H PRN PRN Reason: Nausea/Vomiting Sodium Chloride (Normal Saline) 1,000 mls @ 100 mls/hr IV ASDIRECTED [facility] Levothyroxine Sodium (Synthroid) 75 mcg PO ACBREAKFAST [facility] Magnesium Hydroxide (Milk Of Magnesia) 30 ml PO Q12H PRN PRN Reason: Constipation Metolazone (Zaroxolyn) 2.5 mg PO TUFR [facility] Metoprolol Tartrate (Lopressor) 25 mg PO TID [facility] Non-Formulary Medication (Cholecalciferol (Vitamin D3) [Vitamin D3]) 1,000 unit PO DAILY [facility] Non-Formulary Medication (Potassium Chloride [Potassium Chloride]) 20 meq PO BID [facility] Non-Formulary Medication (Rosuvastatin [Crestor]) 10 mg PO BEDTIME [facility] Oxycodone/Acetaminophen (Percocet 325-5 Mg) 0.5 tab PO Q4H PRN PRN Reason: Pain (moderate 4-6) Pantoprazole Sodium (Protonix Iv) 40 mg IVPUSH DAILY [facility] Polyethylene Glycol (Miralax) 17 gm PO DAILY PRN PRN Reason: Constipation Promethazine HCl (Phenergan) 25 mg PO Q6H PRN PRN Reason: Nausea/Vomiting Senna/Docusate Sodium (Senna Plus) 1 tab PO BID PRN PRN Reason: Constipation Sertraline HCl (Zoloft) 50 mg PO DAILY [facility] Sodium Chloride (Saline Flush) 10 ml FLUSH ASDIRECTED PRN PRN Reason: Keep Vein Open Last Admin: 01/30/18 12:27 Dose: 10 ml Temazepam (Restoril) 7.5 mg PO BEDTIME PRN PRN Reason: Sleep Warfarin Sodium (Coumadin Sliding Scale) each PO DAILY [facility] Assessment/Plan Comment:: I/P: Acute: Dehydration, Improving -Risk factor: h/o of recent illness causing N/V/D x 48 hours -Order stool culture -Orthostatic Hypotension in ED -EKG--> Afib/Aflutter, paced -IVF started in ED--> continue at 100mL/hr -Clear fluid diet--> Advance as tolerated -Antiemetics -Monitor Fall with contusion to right forehead -Most likely 2/2 above -R/O Vasovagal vs. Infectious cause vs. Cardiac cause -On Coumadin -CT of head shows no acute abnormal findings -Hip X-ray shows no acute abnormal findings -Afebrile, No leukocytosis, CXR negative, Mycoplasma negative -EKG --> Afib/flutter -Echo in the AM -Stool Culture -Up with assistance -PT/OT consult Anemia -Hgb 8.9 -Likely 2/2 above -IVF for now, replenish with PRBCs as needed Chronic: Afib CHF SD Heart valve replacement 4 yrs ago h/o Chemo for leukemia HTN HLD Hypothyroid PUD Depression Alzheimer's--> At baseline Plan: Transfered to Observation today She remains stable and continues to improve clinically Other orders as indicated above Routine AM labs Fall Precautions PT/OT DVT Prophylaxis: On warfarin GI Prophylaxis: Protonix Ambulated with assistance Code Status: Full code; PCP: Dr. Arsalan Russell
[2018-01-31] MEDS ORDERED: LEVOTHYROXINE 75 MCG PO SCH (06:00)
[2018-01-31] MEDS: Sodium Chloride 0.9% 1,000 ML IV SCH ×2 (06:13→16:39)
[2018-01-31] MEDS ORDERED: Pantoprazole 40 MG Vial IVPUSH SCH (09:00)
[2018-01-31] MEDS ORDERED: Non-Formulary Medication 1 Each (Cholecalciferol (Vitamin D3) [Vitamin D3] 1,000 UNIT) PO SCH (09:00)
[2018-01-31] MEDS ORDERED: Magnesium Sulfate/Water 2 GM in Premix Bag 1 BAG IV ONE (09:00)
--- NOTE | 2018-01-31 09:18 | CR ---
Chest: Portable view of the chest was obtained. Comparison: Prior chest x-ray of 08/29/17 and 04/17/17. Increased density within the right mid and lower lung is seen. Lungs otherwise are clear. Heart size and mediastinum are within normal limits for portable technique. Prosthetic heart valve is noted with prior sternotomy. Bony structures are grossly intact. Impression: 1. Increased density seen within the right mid and lower lung. Uncertain if this represents residual change from prior chest x-ray or represents a new area of pneumonia. 2. Other incidental findings. Diagnostic code #3
--- NOTE | 2018-01-31 09:18 | CR ---
Pelvis and right hip: AP view of the pelvis was obtained as well as AP and frog-leg lateral views of the right hip. Comparison: No prior pelvis or hip exam. Bony structures are osteopenic. Vascular calcification is noted. Joint spaces within both hips are preserved. No discrete fracture or other abnormality is seen. Several surgical clips are seen within the right pelvis. Impression: 1. Incidental findings. Nothing acute is appreciated on AP pelvis or on two-view right hip exam. Diagnostic code #2
[2018-01-31] MEDS: Furosemide 40 MG Tab *** PATIENT'S OWN PO SCH ×2 (10:41→11:01)
[2018-01-31] MEDS: SERTRALINE 50 MG PO SCH ×2 (10:41→11:00)
[2018-01-31] MEDS: METOPROLOL TARTRATE 25 MG PO SCH ×4 (10:43→21:19)
[2018-01-31] MEDS: POTASSIUM CHLORIDE 20 MEQ PO SCH ×3 (10:43→21:19)
[2018-01-31] MEDS: DILTIAZEM 120 MG PO SCH ×2 (10:45→11:02)
[2018-01-31] MEDS ORDERED: Pantoprazole 40 MG Tab.CR PO SCH (10:46)
--- NOTE | 2018-01-31 13:01 | PCM.PN ---
- General Info Date of Service: 01/31/18 Admission Dx/Problem (Free Text): Admission Diagnosis/Problem Admission Diagnosis/Problem Dehydration Subjective Update: In to see Brenda. present. reports patient does have memory issues. They report she had a good night. NC 2L present; they report she wears O2 continuously at home. Patient reports sporadic dizzines is still present. Patient denies chest pain, dyspnea, and GI issues. She was previously experiencing N/V for 48 hours; patient and report this was due to overeating at their 60th wedding anniversary green party. She has had no N/V today. She denies difficulty chewing/swallowing; PUPPET ENGINEER eval cancelled. states that patient's Hgb is normally low and that patient sees an oncologist regularly for her 'blood labs'. Functional Status: Reports: Pain Controlled, Tolerating Diet, Ambulating, Urinating - Review of Systems General: Reports: No Symptoms, Weakness. Denies: Fever HEENT: Reports: No Symptoms. Denies: Sinus Congestion, Sore Throat Pulmonary: Reports: No Symptoms. Denies: Shortness of Breath, Cough Cardiovascular: Reports: No Symptoms, Other (She does wear continuous O2 ). Denies: Chest Pain, Dyspnea on Exertion, Edema Gastrointestinal: Reports: No Symptoms. Denies: Abdominal Pain, Constipation, Diarrhea, Nausea, Vomiting Genitourinary: Reports: No Symptoms. Denies: Dysuria, Frequency Musculoskeletal: Reports: No Symptoms Skin: Reports: No Symptoms Neurological: Reports: No Symptoms, Dizziness (sporadic ), Other. Denies: Headache, Numbness, Tingling Psychiatric: Reports: No Symptoms. Denies: Depression, Anxiety - Patient Data Vitals - Most Recent: Last Vital Signs Temp 99.0 F 01/31/18 11:51 Pulse 59 L 01/31/18 11:51 Resp 18 01/31/18 11:51 BP 123/62 01/31/18 11:51 Pulse Ox 97 01/31/18 11:51 Orthostatic Blood Pressure [ 112/58 Standing] Orthostatic Blood Pressure [ 115/93 Sitting] Orthostatic Blood Pressure [ 133/60 Supine] Weight - Most Recent: 125 lb I&O - Last 24 Hours: Intake & Output 01/30/18 01/31/18 01/31/18 22:59 06:59 14:59 Intake Total 1450 740 Output Total 625 Balance 825 740 Lab Results Last 24 Hours: Laboratory Results - last 24 hr 01/30/18 01/30/18 01/30/18 Range/Units 12:00 22:10 23:50 WBC (3.98-10.04) K/mm3 RBC (3.98-5.22) M/mm3 Hgb (11.2-15.7) gm/L Hct (34.1-44.9) % MCV (79.4-94.8) fl MCH (25.6-32.2) pg MCHC (32.2-35.5) g/dl RDW Std Deviation (36.4-46.3) fL Plt Count (182-369) K/mm3 MPV (9.4-12.3) fl Neut % (Auto) (34.0-71.1) % Lymph % (Auto) (19.3-51.7) % [place] % (Auto) (4.7-12.5) % Eos % (Auto) (0.7-5.8) Baso % (Auto) (0.1-1.2) % Neut # (Auto) (1.56-6.13) K/mm3 Lymph # (Auto) (1.18-3.74) K/mm3 [place] # (Auto) (0.24-0.36) K/mm3 Eos # (Auto) (0.04-0.36) K/mm3 Baso # (Auto) (0.01-0.08) K/mm3 Manual Slide Review Sodium (136-145) mEq/L Potassium (3.5-5.1) mEq/L Chloride (98-107) mEq/L Carbon Dioxide (21-32) mEq/L Anion Gap (5-15) BUN (7-18) mg/dL Creatinine (0.55-1.02) mg/dL Est Cr Clr Drug Dosing mL/min Estimated GFR (MDRD) (>60) mL/min BUN/Creatinine Ratio (14-18) Glucose (83-115) mg/dL Calcium (8.5-10.1) mg/dL Magnesium (1.8-2.4) mg/dl Urine Color Yellow (Yellow) Urine Appearance Clear (Clear) Urine pH 6.5 (5.0-8.0) Ur Specific [place] 1.015 (1.005-1.030) Urine Protein Negative (Negative) Urine Glucose (UA) Negative (Negative) Urine Ketones Negative (Negative) Urine Occult Blood Negative (Negative) Urine Nitrite Negative (Negative) Urine Bilirubin Negative (Negative) Urine Urobilinogen 0.2 (0.2-1.0) Ur Leukocyte Esterase Negative (Negative) Urine RBC 0-5 (0-5) /hpf Urine WBC 0-5 (0-5) /hpf Ur Epithelial Cells 0-5 (0-5) /hpf Urine Bacteria Not seen (FEW) /hpf Urine Mucus Not seen (FEW) /hpf Mycoplasma pneumon IgM Negative (NEGATIVE) MRSA (PCR) Negative 01/31/18 01/31/18 Range/Units 05:29 05:29 WBC 4.32 (3.98-10.04) K/mm3 RBC 2.25 L (3.98-5.22) M/mm3 Hgb 8.2 L (11.2-15.7) gm/L Hct 28.0 L (34.1-44.9) % MCV 124.4 H (79.4-94.8) fl MCH 36.4 H (25.6-32.2) pg MCHC 29.3 L (32.2-35.5) g/dl RDW Std Deviation 66.6 H (36.4-46.3) fL Plt Count 360 (182-369) K/mm3 MPV 10.9 (9.4-12.3) fl Neut % (Auto) 60.5 (34.0-71.1) % Lymph % (Auto) 16.9 L (19.3-51.7) % [place] % (Auto) 21.5 H (4.7-12.5) % Eos % (Auto) 0.9 (0.7-5.8) Baso % (Auto) 0.0 L (0.1-1.2) % Neut # (Auto) 2.61 (1.56-6.13) K/mm3 Lymph # (Auto) 0.73 L (1.18-3.74) K/mm3 [place] # (Auto) 0.93 H (0.24-0.36) K/mm3 Eos # (Auto) 0.04 (0.04-0.36) K/mm3 Baso # (Auto) 0.00 L (0.01-0.08) K/mm3 Manual Slide Review Abnormal smear Sodium 143 (136-145) mEq/L Potassium 3.4 L (3.5-5.1) mEq/L Chloride 105 (98-107) mEq/L Carbon Dioxide 31 (21-32) mEq/L Anion Gap 10.4 (5-15) BUN 31 H (7-18) mg/dL Creatinine 0.8 (0.55-1.02) mg/dL Est Cr Clr Drug Dosing 45.84 mL/min Estimated GFR (MDRD) > 60 (>60) mL/min BUN/Creatinine Ratio 38.8 H (14-18) Glucose 92 (83-115) mg/dL Calcium 8.5 (8.5-10.1) mg/dL Magnesium 1.7 L (1.8-2.4) mg/dl Urine Color (Yellow) Urine Appearance (Clear) Urine pH (5.0-8.0) Ur Specific [place] (1.005-1.030) Urine Protein (Negative) Urine Glucose (UA) (Negative) Urine Ketones (Negative) Urine Occult Blood (Negative) Urine Nitrite (Negative) Urine Bilirubin (Negative) Urine Urobilinogen (0.2-1.0) Ur Leukocyte Esterase (Negative) Urine RBC (0-5) /hpf Urine WBC (0-5) /hpf Ur Epithelial Cells (0-5) /hpf Urine Bacteria (FEW) /hpf Urine Mucus (FEW) /hpf Mycoplasma pneumon IgM (NEGATIVE) MRSA (PCR) Med Orders - Current: Current Medications Acetaminophen (Tylenol) 650 mg PO Q4H PRN PRN Reason: Pain (Mild 1-3)/fever Bisacodyl (Dulcolax) 5 mg PO DAILY PRN PRN Reason: Constipation Diltiazem HCl (Cardizem Cd) 120 mg PO DAILY [facility] Last Admin: 01/31/18 11:02 Dose: 120 mg Docusate Sodium (Colace) 100 mg PO BID PRN PRN Reason: Constipation Furosemide (Lasix) 80 mg PO DAILY [facility] Last Admin: 01/31/18 11:01 Dose: 80 mg Hydromorphone HCl (Dilaudid) 0.25 mg IVPUSH Q2H PRN PRN Reason: Pain (severe 7-10) Promethazine HCl 6.25 mg/ (Sodium Chloride) 50.25 mls @ 100 mls/hr IV Q6H PRN PRN Reason: Nausea/Vomiting Sodium Chloride (Normal Saline) 1,000 mls @ 100 mls/hr IV ASDIRECTED [facility] Last Admin: 01/31/18 06:13 Dose: 100 mls/hr Levothyroxine Sodium (Levothyroxine) 75 mcg PO ACBREAKFAST [facility] Magnesium Hydroxide (Milk Of Magnesia) 30 ml PO Q12H PRN PRN Reason: Constipation Metolazone (Zaroxolyn) 2.5 mg PO TuFr@0700 [facility] Metoprolol Tartrate (Lopressor) 25 mg PO TID [facility] Last Admin: 01/31/18 11:00 Dose: 25 mg Oxycodone/Acetaminophen (Percocet 325-5 Mg) 0.5 tab PO Q4H PRN PRN Reason: Pain (moderate 4-6) Pantoprazole Sodium (Protonix) 40 mg PO DAILY [facility] Polyethylene Glycol (Miralax) 17 gm PO DAILY PRN PRN Reason: Constipation Potassium Chloride (Klor-Con M20) 20 meq PO BID [facility] Last Admin: 01/31/18 10:59 Dose: 20 meq Promethazine HCl (Phenergan) 25 mg PO Q6H PRN PRN Reason: Nausea/Vomiting Rosuvastatin Calcium (Crestor) 5 mg PO BEDTIME [facility] Senna/Docusate Sodium (Senna Plus) 1 tab PO BID PRN PRN Reason: Constipation Sertraline HCl (Zoloft) 50 mg PO DAILY [facility] Last Admin: 01/31/18 11:00 Dose: 50 mg Sodium Chloride (Saline Flush) 10 ml FLUSH ASDIRECTED PRN PRN Reason: Keep Vein Open Last Admin: 01/30/18 12:27 Dose: 10 ml Temazepam (Restoril) 7.5 mg PO BEDTIME PRN PRN Reason: Sleep Warfarin Sodium (Coumadin) 2 mg PO WeThFrSa@1800 [facility] Warfarin Sodium (Coumadin) 1 mg PO Tu@1800 [facility] Discontinued Medications Sodium Chloride (Normal Saline) 1,000 mls @ 150 mls/hr IV ASDIRECTED [facility] Last Admin: 01/30/18 19:49 Dose: 150 mls/hr Sodium Chloride (Normal Saline) 1,000 mls @ 999 mls/hr IV ASDIRECTED [facility] Stop: 02/03/18 14:57 Magnesium Sulfate 2 gm/ Premix 50 mls @ 25 mls/hr IV ONETIME ONE Stop: 01/31/18 10:59 Last Admin: 01/31/18 10:46 Dose: 25 mls/hr Non-Formulary Medication (Cholecalciferol (Vitamin D3) [Vitamin D3]) 1,000 unit PO DAILY [facility] Non-Formulary Medication (Rosuvastatin [Crestor]) 10 mg PO BEDTIME [facility] Last Admin: 01/30/18 23:05 Dose: Not Given Pantoprazole Sodium (Protonix Iv) 40 mg IVPUSH DAILY [facility] Last Admin: 01/31/18 10:41 Dose: 40 mg Levothyroxine 75 Mcg (Tablet Ptom) 75 each PO ACBREAKFAST [facility] Last Admin: 01/31/18 06:13 Dose: 75 each Warfarin Sodium (Coumadin) 1 mg PO TU [facility] - Exam Quality Assessment: Supplemental Oxygen General: Alert, Oriented, Cooperative, No Acute Distress HEENT: Pupils Equal, Pupils Reactive, EOMI, Mucous Membr. Moist/[place] Neck: Supple Lungs: Clear to Auscultation, Normal Respiratory Effort Cardiovascular: Regular Rate, Regular Rhythm, Murmurs (systolic grade III/ ) GI/Abdominal Exam: Normal Bowel Sounds, Soft, Non-Tender, No Distention (Female) Exam: Deferred Back Exam: Normal Inspection, Full Range of Motion Extremities: Normal Inspection, Normal Range of Motion, Non-Tender, No Pedal Edema Peripheral Pulses: 2+: Radial (L), Radial (R), Posterior Tibial (L), Posterior Tibial (R), Dorsalis Pedis (L), Dorsalis Pedis (R) Skin: Warm, Dry, Intact, Ecchymosis (present on right frontal bone area ) Neurological: No New Focal Deficit, Normal Speech, Strength Equal Bilateral, Cranial Nerves Intact (grossly ) Psy/Mental Status: Alert, Normal Affect, Normal Mood - Problem List Review Problem List Initiated/Reviewed/Updated: Yes - My Orders Last 24 Hours: My Active Orders 01/31/18 Dinner Heart Healthy Diet [DIET] - Plan Plan:: I/P: Acute: Dehydration, Improving -Risk factor: h/o of recent illness causing N/V/D x 48 hours -Stool culture pending -Orthostatic Hypotension in ED, orthostatics repeated today and were normal -EKG--> Afib/Aflutter, paced; patient reports afib dx'd 2014 and she has seen Dr. Law in [place], [place] -IVF NS started in ED--> continue at 100mL/hr -Initially clear fluid diet--> advanced to Heart Healthy diet today -PUPPET ENGINEER eval cancelled as she is having no issues swallowing liquids/pill per nursing -Antiemetics prn -Monitor Fall with contusion to right forehead -Most likely 2/2 above -R/O Vasovagal vs. Infectious cause vs. Cardiac cause -On Coumadin -CT of head shows no acute abnormal findings -Hip X-ray shows no acute abnormal findings -Afebrile, No leukocytosis, CXR negative, Mycoplasma negative -EKG --> Afib/flutter -- -UA negative -Echo pending -Stool Culture pending -Up with assistance -PT/OT Anemia -Hgb 8.9 -Likely related to above -Patient and also report that she has chronically low Hgb and follows with oncology with last transfusion in 2016 during surgery; per PCP records, she has a history of myelodysplastic syndrome - PCP records indicate Iron studies performed in October 2017 with the following results: Iron total 178, TIBC 335, Iron saturation 53%, Ferritin 315 -IVF for now, replenish with PRBCs as needed Hypokalemia -3.4 today, yesterday 4.0 -Likely related to volume status -She is on KCl 20 mEq BID at home and will continue this during admit -Monitor and replete as needed Hypomagnesemia -1.7 today -Likely 2/2 recent N/V -Replete with Mg sulfate 2 gm IV x 1 -Monitor Chronic: Afib --> continue home meds; she is on warfarin at home; INR in ED 2.61 CHF --> she wears home O2 continuously [place] Heart valve replacement 4 yrs ago h/o Chemo for MDS HTN HLD Hypothyroid PUD Depression Alzheimer's--> At baseline Plan: Transferred to Observation She remains stable and continues to improve clinically Other orders as indicated above Echo pending Stool culture pending Routine AM labs Fall Precautions Heart Healthy diet PT/OT DVT Prophylaxis: On warfarin GI Prophylaxis: Protonix Ambulated with assistance Code Status: Full code PCP: Dr. Arsalan Ramsey Patient requires home health services (long term, HYDROGEN TREATER, PT, OT) secondary to being homebound with recent fall. PCP is Dr. Arsalan Russell.
[2018-01-31] MEDS ORDERED: WARFARIN 2 MG PO SCH (18:00)
[2018-01-31] MEDS ORDERED: ROSUVASTATIN 10 MG PO SCH (21:00)
[2018-02-01] MEDS: Sodium Chloride 0.9% 1,000 ML IV SCH (04:10)
[2018-02-01] MEDS ORDERED: LEVOTHYROXINE 75 MCG PO SCH (06:00)
[2018-02-01] MEDS ORDERED: METOLAZONE 2.5 MG PO SCH (07:00)
[2018-02-01] MEDS: POTASSIUM CHLORIDE 20 MEQ PO SCH (08:07)
[2018-02-01] MEDS: METOPROLOL TARTRATE 25 MG PO SCH (08:15)
[2018-02-01] MEDS: DILTIAZEM 120 MG PO SCH (08:15)
[2018-02-01] MEDS: SERTRALINE 50 MG PO SCH (08:17)
[2018-02-01] MEDS: Furosemide 40 MG Tab *** PATIENT'S OWN PO SCH (08:18)
[2018-02-01] MEDS ORDERED: Magnesium Oxide 400 MG Tab PO ONE (08:30)
[2018-02-01] MEDS ORDERED: Albuterol/Ipratropium 3.0-0.5 MG/3 ML Neb Soln NEB PRN (10:44)
--- NOTE | 2018-02-01 10:59 | PCM.DCSUM1 ---
Discharge Summary - Hospital Course HPI Initial Comments: 77-year-old female presents to ED having suffered syncopal event at home. Patient has dementia, not able to give an accurate history of what happened. Her was in the home, heard her fall and when he found her she was lying on the floor. She Thinks she tripped on a rug but we really do not know if that is truly what happened. She is on Coumadin. She is on 3 different medications for hypertension. She has hx of a fib, has hx of heart valve replacement about 4 yrs ago. She did hit her right for head hard enough to have an area of swelling and bruising. Her states there was no LOC, she was awake upon his immediate arrival. She does have very mild right frontal headache. There's been no nausea or vomiting. She denies chest pain or difficulty breathing. She denies abdominal pelvic or hip discomfort. She is noted to have relatively low blood pressure on arrival to ED. states that she was ill the past 2 days with abd pain, vomiting and diarrhea that is now better today. Diagnosis: Stroke: No - Discharge Data Discharge Date: 02/01/18 (ADMIT 01/30/18) Discharge Disposition: Home, Self-Care 01 Condition: Good - Discharge Diagnosis/Problem(s) (1) Fall SNOMED Code(s): 2064663, 202748266 ICD Code: W19.XXXA - UNSPECIFIED FALL, INITIAL ENCOUNTER Status: Acute Priority: High Current Visit: Yes Qualifiers: Encounter type: initial encounter Qualified Code(s): W19.XXXA - Unspecified fall, initial encounter (2) Forehead contusion SNOMED Code(s): 386123718 ICD Code: S00.83XA - CONTUSION OF OTHER PART OF HEAD, INITIAL ENCOUNTER Status: Acute Priority: High Current Visit: Yes Qualifiers: Encounter type: initial encounter Qualified Code(s): S00.83XA - Contusion of other part of head, initial encounter (3) Hypotension SNOMED Code(s): 23247762 ICD Code: I95.9 - HYPOTENSION, UNSPECIFIED Status: Acute Priority: High Current Visit: Yes Qualifiers: Hypotension type: unspecified hypotension type Qualified Code(s): I95.9 - Hypotension, unspecified (4) Near syncope SNOMED Code(s): 553916345 ICD Code: R55 - SYNCOPE AND COLLAPSE Status: Acute Priority: High Current Visit: Yes (5) Acute exacerbation of congestive heart failure SNOMED Code(s): 65359761 ICD Code: I50.9 - HEART FAILURE, UNSPECIFIED Status: Chronic Priority: Medium Current Visit: No Qualifiers: Heart failure type: unspecified Qualified Code(s): I50.9 - Heart failure, unspecified (6) Adverse effects of medication SNOMED Code(s): 27679182 ICD Code: T88.7XXA - UNSP ADVERSE EFFECT OF DRUG OR MEDICAMENT, INIT ENCNTR Status: Acute Priority: High Current Visit: No Qualifiers: Encounter type: initial encounter Qualified Code(s): T50.905A - Adverse effect of unspecified drugs, medicaments and biological substances, initial encounter (7) Anemia SNOMED Code(s): 487320900 ICD Code: D64.9 - ANEMIA, UNSPECIFIED Status: Chronic Priority: High Current Visit: No Qualifiers: Anemia type: unspecified type Qualified Code(s): D64.9 - Anemia, unspecified (8) Atrial fibrillation and flutter SNOMED Code(s): 770925890 ICD Code: I48.91 - UNSPECIFIED ATRIAL FIBRILLATION; I48.92 - UNSPECIFIED ATRIAL FLUTTER Status: Acute Priority: High Current Visit: Yes - Patient Summary/Data Operative Procedure(s) Performed: none Complications: none Consults: Consultations 01/30/18 20:45 OT Evaluation and Treatment [CONS] Routine PT Evaluation and Treatment [CONS] Routine Labs Pending at D/C: ECHO and Stool culture pending Recommended Follow-up Testing/Procedures: Follow up with PCP, Dr. Russell, in 7-10 days. -Recheck Hgb as it was low today (7.8) Planned Operative Procedure(s) after DC: none Hospital Course: I/P: Acute: Dehydration, Improving -Risk factor: h/o of recent illness causing N/V/D x 48 hours -Stool culture pending -Orthostatic Hypotension in ED, orthostatics repeated today and were normal -EKG--> Afib/Aflutter, paced; patient reports afib dx'd 2014 and she has seen Dr. Law in [place], [place] -IVF NS started in ED--> continue at 100mL/hr -Initially clear fluid diet--> advanced to Heart Healthy diet today -[employer] eval cancelled as she is having no issues swallowing liquids/pill per nursing -Antiemetics prn -Monitor Fall with contusion to right forehead -Most likely 2/2 above -R/O Vasovagal vs. Infectious cause vs. Cardiac cause -On Coumadin -CT of head shows no acute abnormal findings -Hip X-ray shows no acute abnormal findings -Afebrile, No leukocytosis, CXR negative, Mycoplasma negative -EKG --> Afib/flutter -UA negative -Echo--> preliminary report shows LVEF 65% -Stool Culture pending -Up with assistance -PT/OT Anemia -Hgb 8.9-->7.8 (most likely low due to IVF- recommend recheck with PCP) -Likely related to above -Patient and also report that she has chronically low Hgb and follows with oncology with last transfusion in 2017 during surgery; per PCP records, she has a history of myelodysplastic syndrome - PCP records indicate Iron studies performed in October 2017 with the following results: Iron total 178, TIBC 335, Iron saturation 53%, Ferritin 315 -IVF for now, replenish with PRBCs as needed Hypomagnesemia -1.7 today -Likely 2/2 recent N/V -Replete -Monitor Resolved: Hypokalemia -3.4-->3.6 -Likely related to volume status -She is on KCl 20 mEq BID at home and will continue this during admit -Monitor and replete as needed Chronic: Afib --> continue home meds; she is on warfarin at home; INR in ED 2.61 CHF --> she wears home O2 continuously [place] Heart valve replacement 4 yrs ago h/o Chemo for MDS HTN HLD Hypothyroid PUD Depression Alzheimer's--> At baseline Plan: Transferred to Observation She remains stable and continues to improve clinically Other orders as indicated above Echo pending Stool culture pending Routine AM labs Fall Precautions Heart Healthy diet PT/OT DVT Prophylaxis: On warfarin GI Prophylaxis: Protonix Ambulated with assistance Code Status: Full code PCP: Dr. Arsalan Russell Patient would benefit from home health services (usp, [employer], PT, OT) secondary to chronic anemia which causes generalized weakness, Alzheimer's dementia which causes her confusion, and being homebound with recent fall. PCP is Dr. Arsalan Russell. Brenda has recovered well after being admitted for observation s/p fall most likely d/t dehydration along with her other concomitant health issues. She recently had a GI illness which had caused N/V/D x48 hours. She had many tests done. No infection per work up so far- still awaiting stool culture results, also still pending final results on ECHO, but she recovered well just with IVF rehydration. She originally presented with orthostatic hypotension but this has since resolved s/p fluid resuscitation. PT/OT is recommending Home Health with walker. It is recommended that she f/u with her PCP in 7-10 days. Hgb was very low today at 7.8 and should be rechecked with her PCP. PRBCs were offered, but states that due to her other medical issues it has been contraindicated and so he would not feel comfortable with it. Per , she has had chronically low Hgb. Also suspect that Hgb fell due to IVF resuscitation. 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 This can be worked up further by her PCP. No concerning symptoms today. She will be discharged home today with home health with no new medications. - Patient Instructions Diet: Heart Healthy Diet Activity: As Tolerated Driving: Do Not Drive Showering/Bathing: May Shower Notify Provider of: Fever, Nausea and/or Vomiting Other/Special Instructions: If worsening of symptoms, increased dizziess or another fall, please return to ED. - Discharge Plan Home Medications: Home Meds Rosuvastatin [Crestor] 5 mg PO BEDTIME 08/10/15 [History] Furosemide [Lasix] 80 mg PO DAILY 12/29/15 [History] Metoprolol Tartrate 25 mg PO TID 12/29/15 [History] Pantoprazole [ProTONIX] 40 mg PO BID 12/29/15 [History] Potassium Chloride 20 meq PO BID 12/29/15 [History] Diltiazem [Cardizem CD] 120 mg PO DAILY #30 cap.cd 01/25/16 [Rx] Levothyroxine [Synthroid] 75 mcg PO ACBREAKFAST 03/23/17 [History] Sertraline [Zoloft] 50 mg PO DAILY 03/23/17 [History] Warfarin Sodium [Jantoven] 2 mg PO SUMOWETHFRSA 03/23/17 [History] Acetaminophen 325 mg PO Q4H PRN 01/30/18 [History] Metolazone 2.5 mg PO TUFR 01/30/18 [History] Warfarin Sodium [Jantoven] 1 mg PO TU 01/30/18 [History] Cholecalciferol (Vitamin D3) [Vitamin D3] 1,000 unit PO DAILY 01/31/18 [History] Patient Handouts: Near-Syncope, [id number], Hypotension Referrals: Arsalan Russell MD [Primary Care Provider] - - Discharge Summary/Plan Comment DC Time >30 min.: Yes (40) - General Info Date of Service: 02/01/18 Admission Dx/Problem (Free Text: Admission Diagnosis/Problem Admission Diagnosis/Problem Dehydration Subjective Update: In to see Brenda. She is visiting with her . Overall she is feeling well. Patient reports sporadic dizziness, but did well with PT today. Her O2 did drop a little bit while walking, but RT commented they did not turn her O2 up to 3L which is what she usually uses when walking. Duoneb treatment has been ordered. Patient denies chest pain, dyspnea, N/V/D and any other GI issues. She does have some BRB with her bowel movements, however she reports that this is a chronic condition and she does have a history of hemorrhoids. Hgb is low today at 7.8- states that patient's Hgb is normally low and that patient sees an oncologist regularly for her 'blood labs'. prefers that she not get a blood transfusion as he has been told in the past it can cause complications d/t her other medical conditions. She will be d/c'd home today with home health. Recommended to recheck Hgb with PCP in 7-10 days. and pt agree with this plan. Functional Status: Reports: Pain Controlled, Tolerating Diet, Ambulating, Urinating - Review of Systems General: Reports: Weakness (baseline). Denies: Fever, Chills HEENT: Reports: No Symptoms Pulmonary: Reports: Wheezing. Denies: Shortness of Breath, Cough Cardiovascular: Reports: Dyspnea on Exertion. Denies: Chest Pain, Palpitations , Edema Gastrointestinal: Reports: No Symptoms. Denies: Abdominal Pain, Diarrhea, Nausea, Vomiting Genitourinary: Reports: No Symptoms. Denies: Dysuria, Frequency, Burning, Pain , Urgency Musculoskeletal: Reports: No Symptoms Skin: Reports: No Symptoms Neurological: Reports: Confusion (h/o Alzheimer's), Difficulty Walking (uses walker), Weakness, Gait Disturbance (uses walker). Denies: Headache Psychiatric: Reports: Confusion (h/o Alzheimer's) - Patient Data Vitals - Most Recent: Last Vital Signs Temp 98.1 F 02/01/18 08:13 Pulse 63 02/01/18 08:15 Resp 20 02/01/18 08:13 BP 117/53 L 02/01/18 08:15 Pulse Ox 91 L 02/01/18 08:13 Orthostatic Blood Pressure [ 112/58 Standing] Orthostatic Blood Pressure [ 115/93 Sitting] Orthostatic Blood Pressure [ 133/60 Supine] Weight - Most Recent: 127 lb 3.2 oz I&O - Last 24 hours: Intake & Output 01/31/18 02/01/18 02/01/18 22:59 06:59 14:59 Intake Total 610 1167 Output Total 500 Balance 610 667 Lab Results - Last 24 hrs: Laboratory Results - last 24 hr 02/01/18 02/01/18 Range/Units 05:44 05:44 WBC 4.11 (3.98-10.04) K/mm3 RBC 2.14 L (3.98-5.22) M/mm3 Hgb 7.8 L (11.2-15.7) gm/L Hct 26.6 L (34.1-44.9) % MCV 124.3 H (79.4-94.8) fl MCH 36.4 H (25.6-32.2) pg MCHC 29.3 L (32.2-35.5) g/dl RDW Std Deviation 67.0 H (36.4-46.3) fL Plt Count 358 (182-369) K/mm3 MPV 11.2 (9.4-12.3) fl Neut % (Auto) 57.2 (34.0-71.1) % Lymph % (Auto) 20.9 (19.3-51.7) % [place] % (Auto) 19.5 H (4.7-12.5) % Eos % (Auto) 2.2 (0.7-5.8) Baso % (Auto) 0.0 L (0.1-1.2) % Neut # (Auto) 2.35 (1.56-6.13) K/mm3 Lymph # (Auto) 0.86 L (1.18-3.74) K/mm3 [place] # (Auto) 0.80 H (0.24-0.36) K/mm3 Eos # (Auto) 0.09 (0.04-0.36) K/mm3 Baso # (Auto) 0.00 L (0.01-0.08) K/mm3 Manual Slide Review Abnormal smear Sodium 142 (136-145) mEq/L Potassium 3.6 (3.5-5.1) mEq/L Chloride 107 (98-107) mEq/L Carbon Dioxide 31 (21-32) mEq/L Anion Gap 7.6 (5-15) BUN 21 H (7-18) mg/dL Creatinine 0.8 (0.55-1.02) mg/dL Est Cr Clr Drug Dosing 45.84 mL/min Estimated GFR (MDRD) > 60 (>60) mL/min BUN/Creatinine Ratio 26.3 H (14-18) Glucose 89 (83-115) mg/dL Calcium 8.2 L (8.5-10.1) mg/dL Magnesium 1.7 L (1.8-2.4) mg/dl Med Orders - Current: Current Medications Acetaminophen (Tylenol) 650 mg PO Q4H PRN PRN Reason: Pain (Mild 1-3)/fever Albuterol/Ipratropium (Duoneb 3.0-0.5 Mg/3 Ml) 3 ml NEB QID PRN PRN Reason: Shortness of Breath Bisacodyl (Dulcolax) 5 mg PO DAILY PRN PRN Reason: Constipation Diltiazem HCl (Cardizem Cd) 120 mg PO DAILY [facility] Last Admin: 02/01/18 08:15 Dose: 120 mg Docusate Sodium (Colace) 100 mg PO BID PRN PRN Reason: Constipation Furosemide (Lasix) 80 mg PO DAILY [facility] Last Admin: 02/01/18 08:18 Dose: 80 mg Hydromorphone HCl (Dilaudid) 0.25 mg IVPUSH Q2H PRN PRN Reason: Pain (severe 7-10) Promethazine HCl 6.25 mg/ (Sodium Chloride) 50.25 mls @ 100 mls/hr IV Q6H PRN PRN Reason: Nausea/Vomiting Levothyroxine Sodium (Levothyroxine) 75 mcg PO ACBREAKFAST [facility] Last Admin: 02/01/18 06:59 Dose: 75 mcg Magnesium Hydroxide (Milk Of Magnesia) 30 ml PO Q12H PRN PRN Reason: Constipation Metolazone (Zaroxolyn) 2.5 mg PO TuFr@0700 [facility] Last Admin: 02/01/18 06:59 Dose: 2.5 mg Metoprolol Tartrate (Lopressor) 25 mg PO TID [facility] Last Admin: 02/01/18 08:15 Dose: 25 mg Oxycodone/Acetaminophen (Percocet 325-5 Mg) 0.5 tab PO Q4H PRN PRN Reason: Pain (moderate 4-6) Last Admin: 01/31/18 23:28 Dose: 0.5 tab Pantoprazole Sodium (Protonix) 40 mg PO DAILY [facility] Last Admin: 02/01/18 08:19 Dose: 40 mg Polyethylene Glycol (Miralax) 17 gm PO DAILY PRN PRN Reason: Constipation Potassium Chloride (Klor-Con M20) 20 meq PO BID [facility] Last Admin: 02/01/18 08:07 Dose: 20 meq Promethazine HCl (Phenergan) 25 mg PO Q6H PRN PRN Reason: Nausea/Vomiting Rosuvastatin Calcium (Crestor) 5 mg PO BEDTIME [facility] Last Admin: 01/31/18 21:19 Dose: 5 mg Senna/Docusate Sodium (Senna Plus) 1 tab PO BID PRN PRN Reason: Constipation Sertraline HCl (Zoloft) 50 mg PO DAILY [facility] Last Admin: 02/01/18 08:17 Dose: 50 mg Sodium Chloride (Saline Flush) 10 ml FLUSH ASDIRECTED PRN PRN Reason: Keep Vein Open Last Admin: 01/30/18 12:27 Dose: 10 ml Temazepam (Restoril) 7.5 mg PO BEDTIME PRN PRN Reason: Sleep Warfarin Sodium (Coumadin) 2 mg PO SuMoWeThFrSa@1800 [facility] Last Admin: 01/31/18 17:28 Dose: 2 mg Warfarin Sodium (Coumadin) 1 mg PO Tu@1800 [facility] Discontinued Medications Sodium Chloride (Normal Saline) 1,000 mls @ 150 mls/hr IV ASDIRECTED [facility] Last Admin: 01/30/18 19:49 Dose: 150 mls/hr Sodium Chloride (Normal Saline) 1,000 mls @ 999 mls/hr IV ASDIRECTED [facility] Stop: 02/03/18 14:57 Sodium Chloride (Normal Saline) 1,000 mls @ 100 mls/hr IV ASDIRECTED [facility] Last Admin: 02/01/18 04:10 Dose: 100 mls/hr Magnesium Sulfate 2 gm/ Premix 50 mls @ 25 mls/hr IV ONETIME ONE Stop: 01/31/18 10:59 Last Admin: 01/31/18 10:46 Dose: 25 mls/hr Magnesium Oxide (Magnesium Oxide) 400 mg PO ONETIME ONE Stop: 02/01/18 08:31 Last Admin: 02/01/18 09:34 Dose: 400 mg Non-Formulary Medication (Cholecalciferol (Vitamin D3) [Vitamin D3]) 1,000 unit PO DAILY [facility] Non-Formulary Medication (Rosuvastatin [Crestor]) 10 mg PO BEDTIME [facility] Last Admin: 01/30/18 23:05 Dose: Not Given Pantoprazole Sodium (Protonix Iv) 40 mg IVPUSH DAILY [facility] Last Admin: 01/31/18 10:41 Dose: 40 mg Levothyroxine 75 Mcg (Tablet Ptom) 75 each PO ACBREAKFAST [facility] Last Admin: 01/31/18 06:13 Dose: 75 each Warfarin Sodium (Coumadin) 1 mg PO TU [facility] - Exam Quality Assessment: Reports: Supplemental Oxygen (2L nasal cannula), DVT Prophylaxis General: Reports: Alert, Oriented, Cooperative, No Acute Distress HEENT: Reports: Pupils Equal, Pupils Reactive, EOMI, Mucous Membr. Moist/[place]ck: Reports: Supple Lungs: Reports: Normal Respiratory Effort, Wheezing Cardiovascular: Reports: Regular Rate, Irregular Rhythm (afib) GI/Abdominal Exam: Normal Bowel Sounds, Soft, Non-Tender, No Organomegaly, No Distention, No Abnormal Bruit, No Mass, Pelvis Stable (Female) Exam: Deferred Rectal (Female) Exam: Deferred Back Exam: Reports: Normal Inspection, Full Range of Motion Extremities: Normal Inspection, Normal Range of Motion, Non-Tender, No Pedal Edema, Normal Capillary Refill Skin: Reports: Warm, Dry, Intact Neurological: Reports: No New Focal Deficit Psy/Mental Status: Reports: Alert, Normal Affect, Normal Mood
[2018-02-01 12:28] VITALS: BP 113/54
[2018-02-05] MEDS ORDERED: Warfarin 2 MG Tab PO SCH (09:06)
[2018-02-05] MEDS ORDERED: WARFARIN 2 MG PO SCH (18:00)
== END 2018-02-01 13:31 | disposition home or self-care (01) ==
LOC: JD.ED 11:38 → JD.MS 17:40
PROVIDERS: ADMIT Internal Medicine Cardiovascular Disease; ATTEND Internal Medicine Cardiovascular Disease
DX: S00.83XA Contusion of other part of head, initial encounter (principal); E86.0 Dehydration; I95.1 Orthostatic hypotension; I11.0 Hypertensive heart disease with heart failure; I50.9 Heart failure, unspecified; I48.91 Unspecified atrial fibrillation; I48.92 Unspecified atrial flutter; D64.9 Anemia, unspecified; Z79.01 Long term (current) use of anticoagulants; Z79.899 Other long term (current) drug therapy; Z95.2 Presence of prosthetic heart valve; W19.XXXA Unspecified fall, initial encounter; Z99.81 Dependence on supplemental oxygen; E78.5 Hyperlipidemia, unspecified; E03.9 Hypothyroidism, unspecified; E78.00 Pure hypercholesterolemia, unspecified; G30.9 Alzheimer's disease, unspecified; F02.80 Dementia in other diseases classified elsewhere, unspecified severity, without behavioral disturbance, psychotic disturbance, mood disturbance, and anxiety; C94.6 Myelodysplastic disease, not elsewhere classified; Z88.0 Allergy status to penicillin; Z88.8 Allergy status to other drugs, medicaments and biological substances; Z88.2 Allergy status to sulfonamides; Z88.1 Allergy status to other antibiotic agents
CPT/HCPCS: 36415; 70450; 71045; 73502; 80048; 80053; 81001; 83735; 85025; 85610; 86738; 87046; 87427; 87641; 93005; 93306; 94640; 96361; 96365; 96375; 97110; 97116; 97162; 97165; 97530; 99285; A9270; C9113; G0378; J7040; J7050; 93010; 96360; 99284-25; J3475

== ENCOUNTER 2018-09-23 08:50 | Emergency (ER) | payer MEDICARE, OTHER ==
[2018-09-23 09:02] VITALS: BP 106/47
[2018-09-23] MEDS ORDERED: Sodium Chloride 0.9% 10 ML Syringe FLUSH PRN (09:16)
[2018-09-23] MEDS ORDERED: Albuterol/Ipratropium 3.0-0.5 MG/3 ML Neb Soln NEB ONE (09:18)
--- NOTE | 2018-09-23 09:52 | EDM.PDOC ---
ED HPI GENERAL MEDICAL PROBLEM - General Chief Complaint: Respiratory Problem Stated Complaint: OXYGEN AT 68 Time Seen by Provider: 09/23/18 08:55 Source of Information: Reports: Patient, Family History Limitations: Reports: No Limitations - History of Present Illness INITIAL COMMENTS - FREE TEXT/NARRATIVE: The patient presents with low oxygen saturations at home. The patient lives with her at [facility]. She is normally on home oxygen at 2L by concentrator. Her oxygen saturations were 69% this morning. Her increased her to 4L. She says she feels a little more short of breath but she denies, fever, chills, cough, or chest pain. She has no abdominal pain, nausea or vomiting. She has no edema in her legs. She has some generalized weakness. Onset: Sudden Duration: Hour(s): Severity: Mild Improves with: Reports: None Worsens with: Reports: None Associated Symptoms: Reports: Shortness of Breath. Denies: Chest Pain, Cough, Fever/Chills, Headaches, Nausea/Vomiting - Related Data Allergies Allergy/AdvReac Type Severity Reaction Status Date / Time GAL Inhibitors Allergy Swelling Verified 09/23/18 09:03 amoxicillin Allergy Hives Verified 09/23/18 09:03 doxycycline Allergy Swelling Verified 09/23/18 09:03 Sulfa (Sulfonamide Allergy Cannot Verified 09/23/18 09:03 Antibiotics) Remember sulfacetamide Allergy Cannot Verified 09/23/18 09:03 Remember Home Meds: Home Meds Rosuvastatin [Crestor] 5 mg PO BEDTIME 08/10/15 [History] Furosemide [Lasix] 80 mg PO DAILY 12/29/15 [History] Metoprolol Tartrate 25 mg PO TID 12/29/15 [History] Pantoprazole [ProTONIX] 40 mg PO BID 12/29/15 [History] Potassium Chloride 20 meq PO BID 12/29/15 [History] Diltiazem [Cardizem CD] 120 mg PO DAILY #30 cap.cd 01/25/16 [Rx] Levothyroxine [Synthroid] 75 mcg PO ACBREAKFAST 03/23/17 [History] Sertraline [Zoloft] 50 mg PO BID 03/23/17 [History] Warfarin Sodium [Jantoven] 2 mg PO SUTUTHSA 03/23/17 [History] Warfarin Sodium [Jantoven] 1 mg PO MOWEFR 01/30/18 [History] metOLazone [Metolazone] 2.5 mg PO MOTH 01/30/18 [History] Tolterodine [Detrol LA 24 Hr] 2 mg PO DAILY #10 cap.er 03/06/18 [Rx] Mirabegron [Myrbetriq] 25 mg PO DAILY 09/23/18 [History] Past Medical History HEENT History: Reports: Impaired Vision Other HEENT History: macular pucker Cardiovascular History: Reports: Arrhythmia, Heart Failure, High Cholesterol, Hypertension Respiratory History: Reports: Other (See Below) Gastrointestinal History: Reports: PUD 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: Neurological History: Reports: Alzheimers Disease Psychiatric History: Reports: Anxiety, Depression Endocrine/Metabolic History: Reports: Hypothyroidism Oncologic (Cancer) History: Reports: Other (See Below) Other Oncologic History: 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 - Infectious Disease History Infectious Disease History: Reports: Chicken Pox, Measles, Mumps - Past Surgical History HEENT Surgical History: Reports: Oral Surgery, Tonsillectomy Cardiovascular Surgical History: Reports: Pacer, Valve Replacement GI Surgical History: Reports: Appendectomy Female Surgical History: Reports: Hysterectomy, Salpingo-Oophorectomy Oncologic Surgical History: Reports: Bone Marrow Aspiration Social & Family History - Family History Family Medical History: Noncontributory Cardiac: Reports: Cardiomyopathy, Heart Failure, [place] Other Cardiac Family History: son [place], mother CHF GI: Reports: Other (See Below) Other GI Family History: father had part of intenstine removed : Reports: Renal Disease/Insufficiency Other Family History: mother OBGYN: Reports: Neurological: Reports: CVA Other Neurological Family History: father Endocrine/Metabolic: Reports: Diabetes, type II Other Endocrine/Metabolic Family History: mother Oncologic: Reports: Colon Other Oncologic Family History: father - Tobacco Use Smoking Status *Q: Never Smoker - Caffeine Use Caffeine Use: Reports: Coffee - Recreational Drug Use Recreational Drug Use: No - Living Situation & Occupation Living situation: Reports: , with Spouse Occupation: Retired ED ROS GENERAL - Review of Systems Review Of Systems: See Below Constitutional: Reports: No Symptoms HEENT: Reports: No Symptoms Respiratory: Reports: Shortness of Breath. Denies: Cough Cardiovascular: Reports: No Symptoms Endocrine: Reports: No Symptoms GI/Abdominal: Reports: No Symptoms : Reports: No Symptoms Musculoskeletal: Reports: No Symptoms ED EXAM, GENERAL - Physical Exam Exam: See Below Exam Limited By: No Limitations General Appearance: Alert, No Apparent Distress Ears: Normal External Exam Nose: Normal Inspection Head: Atraumatic, Normocephalic Neck: Normal Inspection Respiratory/Chest: No Respiratory Distress, Decreased Breath Sounds Cardiovascular: Regular Rate, Rhythm, No Edema, No Murmur GI/Abdominal: Soft, Non-Tender, No Organomegaly, No Mass Back Exam: Normal Inspection Extremities: Normal Inspection EKG INTERPRETATION EKG Date: 09/23/18 Time: 09:31 Rhythm: Other (ventricular paced rhythm) Rate (Beats/Min): 60 Course - Vital Signs Last Recorded V/S: Last Vital Signs Temp 97.8 F 09/23/18 08:59 Pulse 65 09/23/18 08:59 Resp 20 09/23/18 08:59 BP 106/47 L 09/23/18 08:59 Pulse Ox 95 09/23/18 09:26 - Orders/Labs/Meds Orders: Active Orders 24 hr Category Date Time Status Cardiac Monitoring [RC] . DIRECTED Care 09/23/18 09:16 Active EKG Documentation Completion [RC] STAT Care 09/23/18 09:17 Active Oxygen Therapy [RC] PRN Care 09/23/18 09:16 Active Peripheral IV Care [RC] . DIRECTED Care 09/23/18 09:17 Active RT Aerosol Therapy [RC] ASDIRECTED Care 09/23/18 09:18 Active Sodium Chloride 0.9% [Saline Flush] Med 09/23/18 09:16 Active 10 ml FLUSH ASDIRECTED PRN Peripheral IV Insertion Adult [OM.PC] Stat Oth 09/23/18 09:16 Ordered Medication Orders Sodium Chloride (Saline Flush) 10 ml FLUSH ASDIRECTED PRN PRN Reason: Keep Vein Open Last Admin: 09/23/18 09:19 Dose: 10 ml Labs: Laboratory Tests 09/23/18 09/23/18 09/23/18 Range/Units 09:09 09:09 09:09 WBC 4.73 (3.98-10.04) K/mm3 RBC 2.37 L (3.98-5.22) M/mm3 Hgb 8.7 L (11.2-15.7) gm/L Hct 29.7 L (34.1-44.9) % MCV 125.3 H (79.4-94.8) fl MCH 36.7 H (25.6-32.2) pg MCHC 29.3 L (32.2-35.5) g/dl RDW Std Deviation 74.5 H (36.4-46.3) fL Plt Count 536 H (182-369) K/mm3 MPV 10.6 (9.4-12.3) fl Neut % (Auto) 70.1 (34.0-71.1) % Lymph % (Auto) 14.8 L (19.3-51.7) % Quay % (Auto) 13.7 H (4.7-12.5) % Eos % (Auto) 0.8 (0.7-5.8) Baso % (Auto) 0.2 (0.1-1.2) % Neut # (Auto) 3.31 (1.56-6.13) K/mm3 Lymph # (Auto) 0.70 L (1.18-3.74) K/mm3 Quay # (Auto) 0.65 H (0.24-0.36) K/mm3 Eos # (Auto) 0.04 (0.04-0.36) K/mm3 Baso # (Auto) 0.01 (0.01-0.08) K/mm3 Manual Slide Review Abnormal smear Sodium 141 (136-145) mEq/L Potassium 3.4 L (3.5-5.1) mEq/L Chloride 101 (98-107) mEq/L Carbon Dioxide 31 (21-32) mEq/L Anion Gap 12.4 (5-15) BUN 43 H (7-18) mg/dL Creatinine 1.3 H (0.55-1.02) mg/dL Est Cr Clr Drug Dosing 30.30 mL/min Estimated GFR (MDRD) 40 (>60) mL/min BUN/Creatinine Ratio 33.1 H (14-18) Glucose 147 H (83-115) mg/dL Calcium 9.4 (8.5-10.1) mg/dL Total Bilirubin 0.7 (0.2-1.0) mg/dL AST 27 (15-37) U/L ALT 24 (14-59) U/L Alkaline Phosphatase 98 (46-116) U/L Troponin I 0.035 (0.00-0.056) ng/mL NT-Pro-B Natriuret Pep 4047 H (0-450) pg/mL Total Protein 8.2 (6.4-8.2) g/dl Albumin 3.7 (3.4-5.0) g/dl Globulin 4.5 gm/dL Albumin/Globulin Ratio 0.8 L (1-2) Meds: Medications Generic Name Dose Route Start Last Admin Trade Name Freq PRN Reason Stop Dose Admin Sodium Chloride 10 ml 09/23/18 09:16 09/23/18 09:19 Saline Flush FLUSH 10 ml ASDIRECTED PRN Administration Keep Vein Open Discontinued Medications Generic Name Dose Route Start Last Admin Trade Name Freq PRN Reason Stop Dose Admin Albuterol/Ipratropium 3 ml 09/23/18 09:18 09/23/18 09:26 Duoneb 3.0-0.5 Mg/3 Ml NEB 09/23/18 09:19 3 ml ONETIME ONE Administration Sodium Chloride 250 mls @ 500 mls/hr 09/23/18 10:44 09/23/18 11:06 Normal Saline IV 09/23/18 11:13 500 mls/hr .BOLUS ONE Administration - Re-Assessments/Exams Free Text/Narrative Re-Assessment/Exam: 09/23/18 09:52 I ordered oxygen, IV saline lock, EKG, CXR, duoneb and labs. Her EKG shows a ventricular paced rhythm. 09/23/18 11:27 Her CXR shows stable findings. Nothing acute is appreciated as read by Dr Sparks. Her WBC was normal. He Hgb was low at 8.7 but that is improved from prior labs. Her platelets were a little elevated at 536. Her K was a little low at 3.4. Her creatinine was elevated at 1.3. Her glucose was elevated at 147. Her troponin was normal. Her BNP was 4047. That is about where she is. Her says when they got her on her traveling concentrator her oxygen saturations went up and sixto she was here in the ER at 2L she was doing fine. We both wondered if there was a problem with the concentrator. I had my payroll accounting clerk call [employer] and they will send someone out to check it. I do not see a reason to admit her at this time. I did give her a 250ml bolus. She appeared to be al little dry. Departure - Departure Time of Disposition: 11:30 Disposition: Home, Self-Care 01 Condition: Good Clinical Impression: Hypoxia, Renal insufficiency CHF (congestive heart failure) Qualifiers: Qualified Code(s): I50.33 - Acute on chronic diastolic (congestive) heart failure Anemia Qualifiers: Anemia type: unspecified type Qualified Code(s): D64.9 - Anemia, unspecified - Discharge Information *PRESCRIPTION DRUG MONITORING PROGRAM REVIEWED*: Not Applicable *COPY OF PRESCRIPTION DRUG MONITORING REPORT IN PATIENT [place]: Not Applicable Referrals: Arsalan Russell MD [Primary Care Provider] - 1 Week Forms: ED Department Discharge Additional Instructions: Continue taking your medications as prescribed. Someone from [facility] will call and come check your concentrator. Follow up with Dr Russell within 1 week. Please return if you are worse. - My Orders Last 24 Hours: My Active Orders 09/23/18 09:16 Cardiac Monitoring [RC] . DIRECTED Oxygen Therapy [RC] PRN Sodium Chloride 0.9% [Saline Flush] 10 ml FLUSH ASDIRECTED PRN Peripheral IV Insertion Adult [OM.PC] Stat 09/23/18 09:17 EKG Documentation Completion [RC] STAT Peripheral IV Care [RC] . DIRECTED 09/23/18 09:18 RT Aerosol Therapy [RC] ASDIRECTED - Assessment/Plan Last 24 Hours: My Active Orders 09/23/18 09:16 Cardiac Monitoring [RC] . DIRECTED Oxygen Therapy [RC] PRN Sodium Chloride 0.9% [Saline Flush] 10 ml FLUSH ASDIRECTED PRN Peripheral IV Insertion Adult [OM.PC] Stat 09/23/18 09:17 EKG Documentation Completion [RC] STAT Peripheral IV Care [RC] . DIRECTED 09/23/18 09:18 RT Aerosol Therapy [RC] ASDIRECTED
--- NOTE | 2018-09-23 09:55 | CR ---
Chest: Portable view of the chest was obtained. Comparison: Prior chest x-ray of 01/30/18. Heart is enlarged. Upper mediastinum is within normal limits. Previous sternotomy is noted for prosthetic heart valve. Pacemaker is noted. Slight scarring is noted above the right hemidiaphragm. Right hemidiaphragm is mildly elevated which is stable. Lungs otherwise are clear. Impression: 1. Stable findings as noted above. Nothing acute is appreciated. Diagnostic code #2
[2018-09-23] MEDS ORDERED: Sodium Chloride 0.9% 250 ML IV ONE (10:44)
== END 2018-09-23 11:58 | disposition home or self-care (01) ==
LOC: JD.ED 08:50
DX: I11.0 Hypertensive heart disease with heart failure (principal); I50.33 Acute on chronic diastolic (congestive) heart failure; N28.9 Disorder of kidney and ureter, unspecified; R09.02 Hypoxemia; D64.9 Anemia, unspecified; F41.9 Anxiety disorder, unspecified; F32.9 Major depressive disorder, single episode, unspecified; Z88.1 Allergy status to other antibiotic agents; Z88.2 Allergy status to sulfonamides; Z88.8 Allergy status to other drugs, medicaments and biological substances; Z79.01 Long term (current) use of anticoagulants; Z79.899 Other long term (current) drug therapy
CPT/HCPCS: 36415; 71045; 80053; 83880; 84484; 85025; 93005; 94640; 99284; J7040; 93010; J7620-GY

== ENCOUNTER 2018-10-03 07:48 | Day surgery (SDC) | payer MEDICARE, OTHER ==
[~2018-10-03 07:48] MED LIST: CEFUROXIME EYERT SCH; Lidocaine 1% PF 2 ML SDV INJECT SCH; Pilocarpine 4% Ophth Soln 15 ML Bot EYERT SCH
[2018-10-03] MEDS: Ofloxacin 0.3% Ophth Soln 5 ML Bottle EYERT SCH ×3 (08:04→09:55)
[2018-10-03] MEDS: Brimonidine 0.2% Ophth Soln 5 ML Bottle EYERT SCH ×3 (08:09→09:55)
[2018-10-03] MEDS: Phenylephrine 2.5% Ophth Soln 2 ML Bot EYERT SCH ×5 (08:14→09:36)
--- NOTE | 2018-10-03 08:16 | PCM.PREANE ---
Preanesthetic Assessment - Anesthesia/Transfusion/Family Hx Anesthesia History: Prior Anesthesia Reaction ( states pt had 2 surgeries greater then 4 hours in length and believes lead to dementia and supplemental O2 dependence) Family History of Anesthesia Reaction: No Transfusion History: No Prior Transfusion(s) - Review of Systems General: No Symptoms Pulmonary: No Symptoms, Shortness of Breath (pt is on home O2) Cardiovascular: No Symptoms Gastrointestinal: No Symptoms Neurological: No Symptoms Other: Reports: None - Physical Assessment NPO Status Date: 10/02/18 NPO Status Time: 20:00 Pulse: 64 O2 Sat by Pulse Oximetry: 95 Respiratory Rate: 18 Blood Pressure: 128/53 Temperature: 98.8 C ASA Class: 3 Mental Status: Other (pt has dementia, cooperative, does answer some questions appropriately) Airway Class: Mallampati = 1 Dentition: Reports: Dentures (upper) Thyro-Mental Finger Breadths: 3 Mouth Opening Finger Breadths: 3 ROM/Head Extension: Full Lungs: Decreased Breath Sounds, Rales (bilateral) Cardiovascular: Irregular Rhythm - Allergies Allergies/Adverse Reactions: Allergies Allergy/AdvReac Type Severity Reaction Status Date / Time GAL Inhibitors Allergy Swelling Verified 10/02/18 10:22 amoxicillin Allergy Hives Verified 10/02/18 10:22 doxycycline Allergy Swelling Verified 10/02/18 10:22 Sulfa (Sulfonamide Allergy Cannot Verified 10/02/18 10:22 Antibiotics) Remember - Anesthesia Plan Beta Danni: Metoprolol Med Last Dose Date: 10/03/18 Med Last Dose Time: 07:00 - Acknowledgements Anesthesia Type Planned: MAC Pt an Appropriate Candidate for the Planned Anesthesia: Yes Alternatives and Risks of Anesthesia Discussed w Pt/Guardian: Yes Pt/Guardian Understands and Agrees with Anesthesia Plan: Yes PreAnesthesia Questionnaire HEENT History: Reports: Impaired Vision Other HEENT History: macular pucker Cardiovascular History: Reports: Arrhythmia, Heart Failure, Heart Valve Replacement (aortic valve replacement), High Cholesterol, Hypertension, Pacemaker, Other (See Below) Respiratory History: Reports: Other (See Below) (pt on home O2 at 3L, states has been on since heart surgery) Gastrointestinal History: Reports: PUD CONTENT STRATEGY LEAD History: Reports: Musculoskeletal History: Reports: Arthritis, Other (See Below) (pt does use walker due to weakness) Neurological History: Reports: Alzheimers Disease, Other (See Below) (dementia, pt does answer some questions appropriately) Psychiatric History: Reports: Anxiety, Depression Endocrine/Metabolic History: Reports: Hypothyroidism Oncologic (Cancer) History: Reports: Other (See Below) Other Oncologic History: 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 - Infectious Disease History Infectious Disease History: Reports: Chicken Pox, Measles, Mumps - Past Surgical History HEENT Surgical History: Reports: Oral Surgery, Tonsillectomy Cardiovascular Surgical History: Reports: Pacer, Valve Replacement GI Surgical History: Reports: Appendectomy Female Surgical History: Reports: Hysterectomy, Salpingo-Oophorectomy Oncologic Surgical History: Reports: Bone Marrow Aspiration - SUBSTANCE USE Smoking Status *Q: Never Smoker - HOME MEDS Home Medications: Home Meds Furosemide [Lasix] 80 mg PO DAILY 12/29/15 [History] Metoprolol Tartrate 25 mg PO TID 12/29/15 [History] Pantoprazole [ProTONIX] 80 mg PO BID 12/29/15 [History] Potassium Chloride 20 meq PO BID 12/29/15 [History] Diltiazem [Cardizem CD] 120 mg PO DAILY #30 cap.cd 01/25/16 [Rx] Levothyroxine [Synthroid] 75 mcg PO ACBREAKFAST 03/23/17 [History] Sertraline [Zoloft] 50 mg PO 1200 03/23/17 [History] Warfarin Sodium [Jantoven] 2 mg PO SUTUTHSA 03/23/17 [History] Warfarin Sodium [Jantoven] 1 mg PO MOWEFR 01/30/18 [History] metOLazone [Metolazone] 2.5 mg PO MOTH 01/30/18 [History] Mirabegron [Myrbetriq] 25 mg PO DAILY 09/23/18 [History] Rosuvastatin [Crestor] 5 mg PO BEDTIME 10/02/18 [History] - CURRENT (IN HOUSE) MEDS Current Meds: Current Medications Brimonidine Tartrate (Alphagan 0.2% [facility]) 0 ml EYERT ASDIRECTED ELOY Stop: 10/03/18 18:00 Last Admin: 10/03/18 08:09 Dose: 1 drop Lidocaine HCl (Xylocaine-Mpf 1%) 0 ml INJECT ASDIRECTED ELOY Stop: 10/03/18 18:00 Cefuroxime 0 each EYERT ASDIRECTED ELOY Stop: 10/03/18 18:00 Ofloxacin (Ocuflox 0.3% Ophth Soln) 0 ml EYERT ASDIRECTED ELOY Stop: 10/03/18 18:00 Last Admin: 10/03/18 08:04 Dose: 1 drop Phenylephrine HCl (Amos-Synephrine 2.5% Ophth Soln) 0 ml EYERT ASDIRECTED ELOY Stop: 10/03/18 18:00 Pilocarpine HCl (Pilocar 4% Ophth Soln) 0 ml EYERT ASDIRECTED ELOY Stop: 10/03/18 18:00 Tetracaine HCl (Tetracaine 0.5% Steri-Unit Jennifer) 0 ml EYERT ASDIRECTED ELOY Stop: 10/03/18 18:00 Tropicamide (Mydriacyl 1% Ophth Soln) 0 ml EYERT ASDIRECTED ELOY Stop: 10/03/18 18:00
[2018-10-03] MEDS: Tropicamide 1% Ophth Soln 15 ML Bottle EYERT SCH ×4 (08:19→08:59)
[2018-10-03] MEDS: Tetracaine HCl/PF 0.5% 4 ML Bottle EYERT SCH ×4 (09:11→09:42)
--- NOTE | 2018-10-03 10:05 | PCM48HPAN ---
Post Anesthesia Note - EVALUATION WITHIN 48HRS OF ANESTHETIC Vital Signs in Normal Range: Yes Patient Participated in Evaluation: Yes Respiratory Function Stable: Yes Airway Patent: Yes Cardiovascular Function Stable: Yes Hydration Status Stable: Yes Pain Control Satisfactory: Yes Nausea and Vomiting Control Satisfactory: Yes Pulse Rate: 64 Resp Rate: 18 Temperature: 98.8 C Blood Pressure: 128/53
[2018-10-03 10:14] VITALS: BP 112/59
== END 2018-10-03 10:06 | disposition home or self-care (01) ==
LOC: JD.SDS 07:48
PROVIDERS: ATTEND Ophthalmology
DX: H25.813 Combined forms of age-related cataract, bilateral (principal); I10 Essential (primary) hypertension; H35.363 Drusen (degenerative) of macula, bilateral; H35.3131 Nonexudative age-related macular degeneration, bilateral, early dry stage; H40.003 Preglaucoma, unspecified, bilateral; H35.371 Puckering of macula, right eye; H16.103 Unspecified superficial keratitis, bilateral; H16.223 Keratoconjunctivitis sicca, not specified as Sjogren's, bilateral; H02.831 Dermatochalasis of right upper eyelid; H02.834 Dermatochalasis of left upper eyelid; E03.9 Hypothyroidism, unspecified; F41.9 Anxiety disorder, unspecified; F32.9 Major depressive disorder, single episode, unspecified; Z95.0 Presence of cardiac pacemaker; Z79.01 Long term (current) use of anticoagulants; Z79.899 Other long term (current) drug therapy
CPT/HCPCS: 66984; A9270; C1780; J2001

== ENCOUNTER 2018-10-31 07:21 | Day surgery (SDC) | payer MEDICARE, OTHER ==
[~2018-10-31 07:21] MED LIST changes: -CEFUROXIME EYERT SCH; +Cefuroxime 10 MG/ML SYRINGE EYELF SCH; +Pilocarpine 4% Ophth Soln 15 ML Bot EYELF SCH; -Pilocarpine 4% Ophth Soln 15 ML Bot EYERT SCH; +Tropicamide 0.5% Ophth Soln 15 ML Bottle EYELF SCH
[2018-10-31] MEDS: Ofloxacin 0.3% Ophth Soln 5 ML Bottle EYELF SCH ×3 (07:36→09:36)
[2018-10-31] MEDS: Brimonidine 0.2% Ophth Soln 5 ML Bottle EYELF SCH ×2 (07:40→09:36)
[2018-10-31] MEDS: Phenylephrine 2.5% Ophth Soln 2 ML Bot EYELF SCH ×7 (07:45→09:19)
--- NOTE | 2018-10-31 07:50 | PCM.PREANE ---
Preanesthetic Assessment - Anesthesia/Transfusion/Family Hx Anesthesia History: Prior Anesthesia Without Reaction ( states pt had 2 surgeries greater then 4 hours in length and believes lead to dementia and supplemental O2 dependence) Family History of Anesthesia Reaction: No Transfusion History: No Prior Transfusion(s) - Review of Systems Pulmonary: Other (O2 dependent at 3 liters) Cardiovascular: Other (aortic valve replacement, pacemaker, HTN, ) Gastrointestinal: Other (GERD) Neurological: Gait Disturbance (walks with walker) Other: Reports: Thyroid Problems - Physical Assessment NPO Status Date: 10/30/18 NPO Status Time: 21:00 Pulse: 63 O2 Sat by Pulse Oximetry: 100 Respiratory Rate: 16 Blood Pressure: 117/52 Weight: 61.689 kg ASA Class: 3 Mental Status: Alert & Oriented x3 Airway Class: Mallampati = 2 Thyro-Mental Finger Breadths: 3 Mouth Opening Finger Breadths: 3 ROM/Head Extension: Full Lungs: Clear to Auscultation, Normal Respiratory Effort - Allergies Allergies/Adverse Reactions: Allergies Allergy/AdvReac Type Severity Reaction Status Date / Time GAL Inhibitors Allergy Swelling Verified 10/30/18 13:31 amoxicillin Allergy Hives Verified 10/30/18 13:31 doxycycline Allergy Swelling Verified 10/30/18 13:31 Sulfa (Sulfonamide Allergy Cannot Verified 10/30/18 13:31 Antibiotics) Remember - Blood Blood Available: No Product(s) Available: None - Anesthesia Plan Pre-Op Medication Ordered: None Beta Danni: Metoprolol Med Last Dose Date: 10/30/18 - Acknowledgements Anesthesia Type Planned: MAC Pt an Appropriate Candidate for the Planned Anesthesia: Yes Alternatives and Risks of Anesthesia Discussed w Pt/Guardian: Yes Pt/Guardian Understands and Agrees with Anesthesia Plan: Yes PreAnesthesia Questionnaire HEENT History: Reports: Impaired Vision Other HEENT History: macular pucker Cardiovascular History: Reports: Arrhythmia, Heart Failure, Heart Valve Replacement (aortic valve replacement), High Cholesterol, Hypertension, Pacemaker, Other (See Below) Respiratory History: Reports: Other (See Below) (pt on home O2 at 3L, states has been on since heart surgery) Gastrointestinal History: Reports: 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: Musculoskeletal History: Reports: Arthritis, Other (See Below) (pt does use walker due to weakness) Neurological History: Reports: Alzheimers Disease, Other (See Below) (dementia, pt does answer some questions appropriately) Psychiatric History: Reports: Anxiety, Depression Endocrine/Metabolic History: Reports: Hypothyroidism Oncologic (Cancer) History: Reports: Other (See Below) Other Oncologic History: 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 - Infectious Disease History Infectious Disease History: Reports: Chicken Pox, Measles, Mumps - Past Surgical History HEENT Surgical History: Reports: Oral Surgery, Tonsillectomy Cardiovascular Surgical History: Reports: Pacer, Valve Replacement GI Surgical History: Reports: Appendectomy Female Surgical History: Reports: Hysterectomy, Salpingo-Oophorectomy Oncologic Surgical History: Reports: Bone Marrow Aspiration - HOME MEDS Home Medications: Home Meds Furosemide [Lasix] 80 mg PO DAILY 12/29/15 [History] Metoprolol Tartrate 25 mg PO TID 12/29/15 [History] Pantoprazole [ProTONIX] 80 mg PO BID 12/29/15 [History] Potassium Chloride 20 meq PO BID 12/29/15 [History] Diltiazem [Cardizem CD] 120 mg PO DAILY #30 cap.cd 01/25/16 [Rx] Levothyroxine [Synthroid] 75 mcg PO ACBREAKFAST 03/23/17 [History] Sertraline [Zoloft] 50 mg PO 1200 03/23/17 [History] Warfarin Sodium [Jantoven] 2 mg PO SUTUTHSA 03/23/17 [History] Warfarin Sodium [Jantoven] 1 mg PO MOWEFR 01/30/18 [History] metOLazone [Metolazone] 2.5 mg PO MOTH 01/30/18 [History] Mirabegron [Myrbetriq] 25 mg PO DAILY 09/23/18 [History] Rosuvastatin [Crestor] 5 mg PO BEDTIME 10/02/18 [History] - CURRENT (IN HOUSE) MEDS Current Meds: Current Medications Brimonidine Tartrate (Alphagan 0.2% Ophth Soln) 0 ml EYELF ASDIRECTED ELOY Stop: 10/31/18 23:00 Cefuroxime Sodium (Zinacef) 0 mg EYELF ASDIRECTED ELOY Stop: 10/31/18 23:00 Lidocaine HCl (Xylocaine-Mpf 1%) 0 ml INJECT ASDIRECTED ELOY Stop: 10/31/18 23:00 Ofloxacin (Ocuflox 0.3% Ophth Soln) 0 ml EYELF ASDIRECTED ELOY Stop: 10/31/18 23:00 Last Admin: 10/31/18 07:36 Dose: 1 drop Phenylephrine HCl (Amos-Synephrine 2.5% Ophth Soln) 0 ml EYELF ASDIRECTED ELOY Stop: 10/31/18 23:00 Pilocarpine HCl (Pilocar 4% Ophth Soln) 0 ml EYELF ASDIRECTED ELOY Stop: 10/31/18 23:00 Tetracaine HCl (Tetracaine 0.5% Steri-Unit Jennifer) 0 ml EYELF ASDIRECTED ELOY Stop: 10/31/18 23:00 Tropicamide (Mydriacyl 0.5% Ophth Soln) 0 ml EYELF ASDIRECTED ELOY Stop: 10/31/18 23:00
[2018-10-31] MEDS ORDERED: Tropicamide 1% Ophth Soln 15 ML Bottle EYELF SCH (08:15)
[2018-10-31] MEDS: Tetracaine HCl/PF 0.5% 4 ML Bottle EYELF SCH ×4 (09:05→09:23)
--- NOTE | 2018-10-31 09:40 | PCM48HPAN ---
Post Anesthesia Note - EVALUATION WITHIN 48HRS OF ANESTHETIC Vital Signs in Normal Range: Yes Patient Participated in Evaluation: Yes Respiratory Function Stable: Yes Airway Patent: Yes Cardiovascular Function Stable: Yes Hydration Status Stable: Yes Pain Control Satisfactory: Yes Nausea and Vomiting Control Satisfactory: Yes Mental Status Recovered: Yes Pulse Rate: 63 Resp Rate: 16 Blood Pressure: 117/52
[2018-10-31 09:54] VITALS: BP 102/48
== END 2018-10-31 08:48 | disposition home or self-care (01) ==
LOC: JD.SDS 07:21
PROVIDERS: ATTEND Ophthalmology
DX: H25.812 Combined forms of age-related cataract, left eye (principal); H40.003 Preglaucoma, unspecified, bilateral; H35.371 Puckering of macula, right eye; H02.834 Dermatochalasis of left upper eyelid; H02.831 Dermatochalasis of right upper eyelid; H16.103 Unspecified superficial keratitis, bilateral; H16.223 Keratoconjunctivitis sicca, not specified as Sjogren's, bilateral; I11.0 Hypertensive heart disease with heart failure; I50.9 Heart failure, unspecified; M19.90 Unspecified osteoarthritis, unspecified site; F41.9 Anxiety disorder, unspecified; F32.9 Major depressive disorder, single episode, unspecified; E03.9 Hypothyroidism, unspecified; Z79.899 Other long term (current) drug therapy; Z88.1 Allergy status to other antibiotic agents; Z88.2 Allergy status to sulfonamides; Z88.8 Allergy status to other drugs, medicaments and biological substances; Z95.4 Presence of other heart-valve replacement; Z99.81 Dependence on supplemental oxygen; Z98.41 Cataract extraction status, right eye; Z96.1 Presence of intraocular lens; Z83.518 Family history of other specified eye disorder
CPT/HCPCS: A9270-GY; C1780; J0697; J2001

== ENCOUNTER 2019-08-20 08:17 | Inpatient (IN) | payer MEDICARE, OTHER ==
[2019-08-20] MEDS ORDERED: Sodium Chloride 0.9% 10 ML Syringe FLUSH PRN (08:59)
--- NOTE | 2019-08-20 09:03 | EDM.PDOC ---
ED HPI GENERAL MEDICAL PROBLEM - General Chief Complaint: Respiratory Problem Stated Complaint: BP DOWN/WEAK/4LITER OF OXYGEN Time Seen by Provider: 08/20/19 08:50 Source of Information: Reports: Patient, Family (spouse) History Limitations: Reports: Respiratory Distress - History of Present Illness INITIAL COMMENTS - FREE TEXT/NARRATIVE: 79-year-old female presents to the ED with gradually deteriorating level of health over the last week. Increased weakness and increased shortness of breath. She has end-stage COPD with congestive heart failure. She is usually maintained on oxygen at 4 L by nasal cannula at all times and has been increased to 6 L as of this morning. This maintains O2 sats only 86-88%. Use. states that this morning about 0500 hrs. when she got up she seemed to be pretty good but after going back to bed and she seemed to deteriorate over the next 2 hours. he did not feel she had a fever this morning. He had to feed her himself this am. Lately if he sets food down in front of her she will feed herself. She appears confused and disoriented. He questions whether she is running a low-grade fever. Patient has had previous right-sided pleural effusion requiring thoracentesis about a year ago. Off but is not bringing up any phlegm. He states that her legs seem to be a little more edematous than normal. Not sure when she had her last bowel movement. Prone to urinary tract infections. Patient did have a flu shot this year. Onset: Gradual Onset Date: 08/20/19 (Increased hypoxemia this morning with O2 sats of 86-88% on 6 L/m by nasal cannula.) Duration: Day(s):, Getting Worse Location: Reports: Chest (Increasing hypoxemia and confusion.) Quality: Reports: Other Severity: Moderate (Respiratory distress.) Improves with: Reports: None ( O2 sats of only 88% on 6 L/m by nasal cannula.) Worsens with: Reports: Movement Context: Denies: Activity, Exercise, Lifting, Sick Contact, Trauma, Other Associated Symptoms: Reports: Confusion, Chest Pain, Cough, Fever/Chills, Loss of Appetite, Malaise (Respiratory low-grade fever.), Shortness of Breath, Weakness, Other ( reports her nose seems to be running a little bit as of late.). Denies: Diaphoresis, Headaches, Nausea/Vomiting, Rash, Seizure Treatments DIRECTOR APPOINTMENT: Reports: Other (see below) (Oxygen was increased from 4-6 L/m by nasal cannula) - Related Data Allergies Allergy/AdvReac Type Severity Reaction Status Date / Time GAL Inhibitors Allergy Swelling Verified 08/20/19 08:41 amoxicillin Allergy Hives Verified 08/20/19 08:41 doxycycline Allergy Swelling Verified 08/20/19 08:41 Sulfa (Sulfonamide Allergy Cannot Verified 08/20/19 08:41 Antibiotics) Remember Home Meds: Home Meds Furosemide [Lasix] 80 mg PO DAILY 12/29/15 [History] Metoprolol Tartrate 25 mg PO TID 12/29/15 [History] Pantoprazole [ProTONIX] 80 mg PO BID 12/29/15 [History] Potassium Chloride 20 meq PO BID 12/29/15 [History] Diltiazem [Cardizem CD] 120 mg PO DAILY #30 cap.cd 01/25/16 [Rx] Levothyroxine [Synthroid] 75 mcg PO ACBREAKFAST 03/23/17 [History] Sertraline [Zoloft] 50 mg PO 1200 03/23/17 [History] Warfarin Sodium [Jantoven] 2 mg PO SUTUTHSA 03/23/17 [History] Warfarin Sodium [Jantoven] 1 mg PO MOWEFR 01/30/18 [History] metOLazone [Metolazone] 2.5 mg PO MOTHFR 01/30/18 [History] Mirabegron [Myrbetriq] 25 mg PO DAILY 09/23/18 [History] Rosuvastatin [Crestor] 5 mg PO BEDTIME 10/02/18 [History] Past Medical History HEENT History: Reports: Impaired Vision Other HEENT History: macular pucker Cardiovascular History: Reports: Arrhythmia, Heart Failure, Heart Valve Replacement, High Cholesterol, Hypertension, Pacemaker, Other (See Below) Respiratory History: Reports: Other (See Below) Other Respiratory History: Pt has had thoracentesis in the past. 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 - Infectious Disease History Infectious Disease History: Reports: Chicken Pox, Measles, Mumps - Past Surgical History HEENT Surgical History: Reports: Oral Surgery, Tonsillectomy Cardiovascular Surgical History: Reports: Pacer, Valve Replacement GI Surgical History: Reports: Appendectomy Female Surgical History: Reports: Hysterectomy, Salpingo-Oophorectomy Oncologic Surgical History: Reports: Bone Marrow Aspiration Social & Family History - Family History Family Medical History: Noncontributory Cardiac: Reports: Cardiomyopathy, Heart Failure, AR Other Cardiac Family History: son AR, mother CHF GI: Reports: Other (See Below) Other GI Family History: father had part of intenstine removed : Reports: Renal Disease/Insufficiency Other Family History: mother OBGYN: Reports: Neurological: Reports: CVA Other Neurological Family History: father Endocrine/Metabolic: Reports: Diabetes, type II Other Endocrine/Metabolic Family History: mother Oncologic: Reports: Colon Other Oncologic Family History: father - Tobacco Use Smoking Status *Q: Never Smoker - Caffeine Use Caffeine Use: Reports: None - Recreational Drug Use Recreational Drug Use: No - Living Situation & Occupation Living situation: Reports: , with Spouse Occupation: Retired ED ROS GENERAL - Review of Systems Review Of Systems: Unable To Obtain Reason Not Obtained: Mild to moderate dementia. Respiratory failure Constitutional: Reports: Fever (Patient is able to provide some answers to questions but is quite distressed respiratory cardenas and somewhat confused. The history was mostly obtained from the .), Malaise, Weakness ( When questions low-grade fever.), Fatigue, Decreased Appetite, Weight Loss. Denies: Chills HEENT: Reports: Rhinitis (Noticed increased nasal did) Respiratory: Reports: Shortness of Breath, Cough. Denies: Wheezing, Pleuritic Chest Pain, Sputum, Hemoptysis Cardiovascular: Reports: Blood Pressure Problem, Dyspnea on Exertion (Increased edema both lower extremities.), Edema, Palpitations, Other (Severe hypoxemia on room air. Zone 4 L of oxygen at all times. Heidy at this she was at 84% on pulse oximetry). Denies: Claudication, Orthopnea (Tends to run low.) Endocrine: Reports: Fatigue, Other (Diffuse weakness and needs help with all activities of daily living.) GI/Abdominal: Reports: Constipation, Hematochezia ( reports that he has appreciated bright red bleeding when she wipes. He believes this is secondary to hemorrhoids. He has not seen any dark black melena stool.) : Reports: Frequency (Both urge and stress components.), Incontinence Musculoskeletal: Reports: Joint Pain Skin: Reports: Bruising (Knees hips low back shoulders and neck at times. His is easily as she is on Coumadin.) Neurological: Reports: Confusion, Difficulty Walking, Weakness, Gait Disturbance. Denies: Headache (Diffuse today.), Numbness, Syncope, Tingling, Tremors, Trouble Speaking (Cannot walk on her own volition.), Change in Speech Psychiatric: Reports: No Symptoms Hematologic/Lymphatic: Reports: No Symptoms Immunologic: Reports: No Symptoms ED EXAM, GENERAL - Physical Exam Exam: See Below Exam Limited By: Respiratory Distress (Can speak in 1-3 word sentences due to dyspnea.) General Appearance: Alert, Moderate Distress, Other (Vital signs show temperature 36.4 crit and to the nursing staff. Pulse is 67 and she does have a pacemaker. She has a wide complex beats. Respiratory rate is 32-36/m with O2 sats of only 84% on 4 L by nasal cannula. 88% on 6 L by nasal cannula. Patient will be therefore be started on BiPAP at 10/5 as soon as blood gases have been obtained.) Eye Exam: Bilateral Eye: Normal Inspection (Mild bloodflow pallor.), PERRL Nose: Clear Rhinorrhea, Other (Minimal clear rhinorrhea.) Throat/Mouth: Other (Tongue is moderately dry.) Neck: Normal Inspection, Limited Range of Motion, Tender Lateral. No: Non- Tender, Full Range of Motion, Carotid Bruit, Lymphadenopathy (L), Lymphadenopathy (R) Respiratory/Chest: Respiratory Distress, Decreased Breath Sounds ( Both lung bases.. 3 minimal dullness to percussion right base query small pleural effusion ), Rales (Rhonchi throughout the right lung field anteriorly.), Rhonchi , Other (Pacemaker left upper anterior chest.). No: Lungs Clear (Marked respiratory distress tachypnea 32-36/m with O2 sats of 84% on 4 L/m by nasal cannula.), Normal Breath Sounds Cardiovascular: Regular Rate, Rhythm (Frequent ectopic beats.), No Murmur, No Rub, JVD. No: Normal Peripheral Pulses, No Edema, No Gallop Peripheral Pulses: 1+: Posterior Tibial (L) (Hands and feet are cool to touch due to non-perfusing her periphery.), Posterior Tibial (R), Dorsalis Pedis (L), Dorsalis Pedis (R) GI/Abdominal: Normal Bowel Sounds, Soft, Non-Tender, Distended (2. Percussion upper abdomen compatible with some degree of aerophagia). No: Guarding, Rigid, Rebound, Tender Back Exam: Other (Mild kyphosis thoracic spine.) Extremities: Pedal Edema (2+ pitting edema both lower extremities slightly worse on the left as compared to the right.), Other Neurological: Confused, Slow to Respond. No: Oriented (Disoriented to time and place.), Normal Cognition, Normal Gait Skin Exam: Warm, Dry, Intact, Other (A Echo cyanosis.) EKG INTERPRETATION EKG Date: 08/20/19 Time: 10:25 Rhythm: Other (100% ventricular paced rhythm at 60/m. Underlying rhythm is atrial flutter/fib. Patient is on Coumadin.) Rate (Beats/Min): 60 [place]: LAD-Left [place] Deviation (Left axis deviation of -89.) P-Wave: Absent EKG Interpretation Comments: No further analysis attempted due to ventricular paced rhythm at 60/m. Course - Vital Signs Last Recorded V/S: Last Vital Signs Temp 36.7 C 08/20/19 11:51 Pulse 61 08/20/19 11:51 Resp 22 H 08/20/19 11:51 BP 100/47 L 08/20/19 11:51 Pulse Ox 93 L 08/20/19 11:51 - Orders/Labs/Meds Orders: Active Orders 24 hr Category Date Time Status BIPAP [RT BiPAP/CPAP] [RC] ASDIRECTED Care 08/20/19 09:11 Active EKG Documentation Completion [] STAT Care 08/20/19 08:58 Active Oxygen Therapy Adult [Oxygen Therapy, ED] [] Care 08/20/19 08:56 Active ASDIRECTED Oxygen Therapy [RC] ASDIRECTED Care 08/20/19 08:59 Active Peripheral IV Care [RC] . DIRECTED Care 08/20/19 09:00 Active CULTURE BLOOD [BC] Stat Lab 08/20/19 09:20 Received CULTURE BLOOD [BC] Stat Lab 08/20/19 10:35 Received Guaiac [OCCULT BLOOD DIAGNOSTIC] [OP] Stat Lab 08/20/19 10:35 Ordered LACTIC ACID [CHEM] Stat Lab 08/20/19 12:30 Ordered PACKED CELLS [RED BLOOD CELLS LP] [BBK] Stat Lab 08/20/19 09:20 Results TYPE AND SCREEN [BBK] Stat Lab 08/20/19 09:20 Results URINALYSIS W/MICROSCOPIC [UA W/MICROSCOPIC] [URIN] Stat Lab 08/20/19 08:59 Ordered Sodium Chloride 0.9% [Saline Flush] Med 08/20/19 08:59 Active 10 ml FLUSH ASDIRECTED PRN Blood Culture x2 Reflex Set [OM.PC] Stat Oth 08/20/19 08:59 Ordered Peripheral IV Insertion Adult [OM.PC] Stat Oth 08/20/19 08:59 Ordered Transfuse PRBC [Transfuse Red Blood Cells] [COMM] Stat Oth 08/20/19 10:36 Ordered Medication Orders Sodium Chloride (Normal Saline) 250 mls @ 25 mls/hr IV ASDIRECTED ELOY Sodium Chloride (Saline Flush) 10 ml FLUSH ASDIRECTED PRN PRN Reason: Keep Vein Open Labs: Laboratory Tests 08/20/19 08/20/19 08/20/19 Range/Units 09:06 09:20 09:20 WBC 12.04 H (3.98-10.04) K/mm3 RBC 1.88 L (3.98-5.22) M/mm3 Hgb 7.1 L* D (11.2-15.7) gm/dl Hct 24.0 L (34.1-44.9) % MCV 127.7 H (79.4-94.8) fl MCH 37.8 H (25.6-32.2) pg MCHC 29.6 L (32.2-35.5) g/dl RDW Std Deviation 74.5 H (36.4-46.3) fL Plt Count 530 H (182-369) K/mm3 MPV 11.0 (9.4-12.3) fl Neutrophils % (Manual) 88 H (40-60) % Band Neutrophils % 0 (0-10) % Lymphocytes % (Manual) 4 L (20-40) % Atypical Lymphs % 0 % Monocytes % (Manual) 7 (2-10) % Eosinophils % (Manual) 1 (0.7-5.8) % Basophils % (Manual) 0 L (0.1-1.2) Platelet Estimate Increased Hypochromasia 2+ moderate Anisocytosis Np2 Macrocytosis 3+ marked RBC Morph Comment Not Reportable ESR (0-20) mm/hr PT 26.6 H (9.7-12.0) SECONDS INR 2.57 APTT (22-31) SECONDS Puncture Site Lt radial ABG pH 7.40 (7.35-7.45) ABG pCO2 58.7 H (35.0-45.0) mmHg ABG pO2 62.0 L (80.0-100.0) mmHg ABG HCO3 35.7 H (22.0-26.0) meq/L ABG O2 Saturation 88.4 L (96.0-97.0) % ABG Base Excess 10.2 H (-2-2.0) Alden Test Positive A-a Gradient 179 mmHg O2 Delivery Device Nasal cannula Oxygen Flow Rate 6.0 FiO2 44.00 (21.00-100.00) % Sodium (136-145) mEq/L Potassium (3.5-5.1) mEq/L Chloride (98-107) mEq/L Carbon Dioxide (21-32) mEq/L Anion Gap (5-15) BUN (7-18) mg/dL Creatinine (0.55-1.02) mg/dL Est Cr Clr Drug Dosing Estimated GFR (MDRD) (>60) mL/min BUN/Creatinine Ratio (14-18) Glucose (83-115) mg/dL Lactic Acid (0.4-2.0) mmol/L Calcium (8.5-10.1) mg/dL Magnesium (1.8-2.4) mg/dl Total Bilirubin (0.2-1.0) mg/dL AST (15-37) U/L ALT (14-59) U/L Alkaline Phosphatase (46-116) U/L CK-MB (CK-2) (0-3.6) ng/ml Troponin I (0.00-0.056) ng/mL C-Reactive Protein (<1.0) mg/dL NT-Pro-B Natriuret Pep (0-450) pg/mL Total Protein (6.4-8.2) g/dl Albumin (3.4-5.0) g/dl Globulin gm/dL Albumin/Globulin Ratio (1-2) TSH 3rd Generation (0.358-3.74) uIU/mL Blood Type Gel Antibody Screen Crossmatch 08/20/19 08/20/19 08/20/19 Range/Units 09:20 09:20 09:20 WBC (3.98-10.04) K/mm3 RBC (3.98-5.22) M/mm3 Hgb (11.2-15.7) gm/dl Hct (34.1-44.9) % MCV (79.4-94.8) fl MCH (25.6-32.2) pg MCHC (32.2-35.5) g/dl RDW Std Deviation (36.4-46.3) fL Plt Count (182-369) K/mm3 MPV (9.4-12.3) fl Neutrophils % (Manual) (40-60) % Band Neutrophils % (0-10) % Lymphocytes % (Manual) (20-40) % Atypical Lymphs % % Monocytes % (Manual) (2-10) % Eosinophils % (Manual) (0.7-5.8) % Basophils % (Manual) (0.1-1.2) Platelet Estimate Hypochromasia Anisocytosis Macrocytosis RBC Morph Comment ESR > 120 H (0-20) mm/hr PT (9.7-12.0) SECONDS INR APTT 37 H (22-31) SECONDS Puncture Site ABG pH (7.35-7.45) ABG pCO2 (35.0-45.0) mmHg ABG pO2 (80.0-100.0) mmHg ABG HCO3 (22.0-26.0) meq/L ABG O2 Saturation (96.0-97.0) % ABG Base Excess (-2-2.0) Alden Test A-a Gradient mmHg O2 Delivery Device Oxygen Flow Rate FiO2 (21.00-100.00) % Sodium 138 (136-145) mEq/L Potassium 3.5 (3.5-5.1) mEq/L Chloride 95 L (98-107) mEq/L Carbon Dioxide 36 H (21-32) mEq/L Anion Gap 10.5 (5-15) BUN 60 H (7-18) mg/dL Creatinine 1.8 H (0.55-1.02) mg/dL Est Cr Clr Drug Dosing TNP Estimated GFR (MDRD) 27 (>60) mL/min BUN/Creatinine Ratio 33.3 H (14-18) Glucose 179 H (83-115) mg/dL Lactic Acid (0.4-2.0) mmol/L Calcium 8.9 (8.5-10.1) mg/dL Magnesium (1.8-2.4) mg/dl Total Bilirubin 1.1 H (0.2-1.0) mg/dL AST 28 (15-37) U/L ALT 21 (14-59) U/L Alkaline Phosphatase 78 (46-116) U/L CK-MB (CK-2) 1.3 (0-3.6) ng/ml Troponin I 0.029 (0.00-0.056) ng/mL C-Reactive Protein 2.9 H* (<1.0) mg/dL NT-Pro-B Natriuret Pep (0-450) pg/mL Total Protein 7.8 (6.4-8.2) g/dl Albumin 3.4 (3.4-5.0) g/dl Globulin 4.4 gm/dL Albumin/Globulin Ratio 0.8 L (1-2) TSH 3rd Generation (0.358-3.74) uIU/mL Blood Type Gel Antibody Screen Crossmatch 08/20/19 08/20/19 08/20/19 Range/Units 09:20 09:20 09:20 WBC (3.98-10.04) K/mm3 RBC (3.98-5.22) M/mm3 Hgb (11.2-15.7) gm/dl Hct (34.1-44.9) % MCV (79.4-94.8) fl MCH (25.6-32.2) pg MCHC (32.2-35.5) g/dl RDW Std Deviation (36.4-46.3) fL Plt Count (182-369) K/mm3 MPV (9.4-12.3) fl Neutrophils % (Manual) (40-60) % Band Neutrophils % (0-10) % Lymphocytes % (Manual) (20-40) % Atypical Lymphs % % Monocytes % (Manual) (2-10) % Eosinophils % (Manual) (0.7-5.8) % Basophils % (Manual) (0.1-1.2) Platelet Estimate Hypochromasia Anisocytosis Macrocytosis RBC Morph Comment ESR (0-20) mm/hr PT (9.7-12.0) SECONDS INR APTT (22-31) SECONDS Puncture Site ABG pH (7.35-7.45) ABG pCO2 (35.0-45.0) mmHg ABG pO2 (80.0-100.0) mmHg ABG HCO3 (22.0-26.0) meq/L ABG O2 Saturation (96.0-97.0) % ABG Base Excess (-2-2.0) Alden Test A-a Gradient mmHg O2 Delivery Device Oxygen Flow Rate FiO2 (21.00-100.00) % Sodium (136-145) mEq/L Potassium (3.5-5.1) mEq/L Chloride (98-107) mEq/L Carbon Dioxide (21-32) mEq/L Anion Gap (5-15) BUN (7-18) mg/dL Creatinine (0.55-1.02) mg/dL Est Cr Clr Drug Dosing Estimated GFR (MDRD) (>60) mL/min BUN/Creatinine Ratio (14-18) Glucose (83-115) mg/dL Lactic Acid 2.1 H* (0.4-2.0) mmol/L Calcium (8.5-10.1) mg/dL Magnesium 2.1 (1.8-2.4) mg/dl Total Bilirubin (0.2-1.0) mg/dL AST (15-37) U/L ALT (14-59) U/L Alkaline Phosphatase (46-116) U/L CK-MB (CK-2) (0-3.6) ng/ml Troponin I (0.00-0.056) ng/mL C-Reactive Protein (<1.0) mg/dL NT-Pro-B Natriuret Pep 5838 H (0-450) pg/mL Total Protein (6.4-8.2) g/dl Albumin (3.4-5.0) g/dl Globulin gm/dL Albumin/Globulin Ratio (1-2) TSH 3rd Generation 1.153 (0.358-3.74) uIU/mL Blood Type Gel Antibody Screen Crossmatch 08/20/19 Range/Units 09:20 WBC (3.98-10.04) K/mm3 RBC (3.98-5.22) M/mm3 Hgb (11.2-15.7) gm/dl Hct (34.1-44.9) % MCV (79.4-94.8) fl MCH (25.6-32.2) pg MCHC (32.2-35.5) g/dl RDW Std Deviation (36.4-46.3) fL Plt Count (182-369) K/mm3 MPV (9.4-12.3) fl Neutrophils % (Manual) (40-60) % Band Neutrophils % (0-10) % Lymphocytes % (Manual) (20-40) % Atypical Lymphs % % Monocytes % (Manual) (2-10) % Eosinophils % (Manual) (0.7-5.8) % Basophils % (Manual) (0.1-1.2) Platelet Estimate Hypochromasia Anisocytosis Macrocytosis RBC Morph Comment ESR (0-20) mm/hr PT (9.7-12.0) SECONDS INR APTT (22-31) SECONDS Puncture Site ABG pH (7.35-7.45) ABG pCO2 (35.0-45.0) mmHg ABG pO2 (80.0-100.0) mmHg ABG HCO3 (22.0-26.0) meq/L ABG O2 Saturation (96.0-97.0) % ABG Base Excess (-2-2.0) Alden Test A-a Gradient mmHg O2 Delivery Device Oxygen Flow Rate FiO2 (21.00-100.00) % Sodium (136-145) mEq/L Potassium (3.5-5.1) mEq/L Chloride (98-107) mEq/L Carbon Dioxide (21-32) mEq/L Anion Gap (5-15) BUN (7-18) mg/dL Creatinine (0.55-1.02) mg/dL Est Cr Clr Drug Dosing Estimated GFR (MDRD) (>60) mL/min BUN/Creatinine Ratio (14-18) Glucose (83-115) mg/dL Lactic Acid (0.4-2.0) mmol/L Calcium (8.5-10.1) mg/dL Magnesium (1.8-2.4) mg/dl Total Bilirubin (0.2-1.0) mg/dL AST (15-37) U/L ALT (14-59) U/L Alkaline Phosphatase (46-116) U/L CK-MB (CK-2) (0-3.6) ng/ml Troponin I (0.00-0.056) ng/mL C-Reactive Protein (<1.0) mg/dL NT-Pro-B Natriuret Pep (0-450) pg/mL Total Protein (6.4-8.2) g/dl Albumin (3.4-5.0) g/dl Globulin gm/dL Albumin/Globulin Ratio (1-2) TSH 3rd Generation (0.358-3.74) uIU/mL Blood Type A POSITIVE Gel Antibody Screen Negative Crossmatch See Detail Meds: Medications Generic Name Dose Route Start Last Admin Trade Name Freq PRN Reason Stop Dose Admin Sodium Chloride 250 mls @ 25 mls/hr 08/20/19 11:30 Normal Saline IV ASDIRECTED ELOY Sodium Chloride 10 ml 08/20/19 08:59 Saline Flush FLUSH ASDIRECTED PRN Keep Vein Open Discontinued Medications Generic Name Dose Route Start Last Admin Trade Name Freq PRN Reason Stop Dose Admin Furosemide 60 mg 08/20/19 09:04 08/20/19 11:04 Lasix IVPUSH 08/20/19 09:05 60 mg NOW ONE Administration Levofloxacin/Dextrose 750 mg/ 150 mls @ 100 mls/hr 08/20/19 10:33 08/20/19 11 :18 Premix IV 08/20/19 12:02 100 mls/hr ONETIME ONE Administration - Radiology Interpretation Free Text/Narrative:: 87-year-old female presents to the ED with severe respiratory distress. She has a history of chronic COPD and is maintained on oxygen at 4 L/m at all times. O2 sats are only 84% on 4 L. On 6 L by nasal cannula which the nurse increased or 2 she is up to 88%. Examination reveals increased JVD. She has diffuse rales in both lung bases and perhaps a small pleural effusion right lung base. Ears to be suffering an acute exacerbation of congestive heart failure. Pressure is maintained thus far at 102 on 48. She feels slightly warm to palpation. She is a wide-complex rythym with paced rhythm at 60/m. She is on metoprolol and Cardizem. She is also on Coumadin. Plan she will receive Lasix 60 mg IV bolus. He takes 80 mg daily. She's also metaxalone on Mondays and and Fridays. ABGs will be obtained and then she'll be placed on BiPAP starting with 10 mm over 5 mmHg. She is a full code and is requesting intubation if so needed. Septic workup will be completed. - Re-Assessments/Exams Free Text/Narrative Re-Assessment/Exam: 08/20/19 09:40 6 Ray reveals poor inspirational view. Right hemidiaphragm is elevated and it was on last film reviewed from September of last year. She has an infiltrate in the right lower lobe adjacent to the medial heart border. This could represent an early pneumonia versus fluid. There is also an infiltrate under the pacemaker left lower lobe compatible with fluid.mild bilateral pleural effusions . There is mild cardiomegaly. Prominent thoracic aorta. No pneumothorax. She is currently on BiPAP and O2 sats are 92-93%. Blood pressure has been slowly falling with less mean arterial pressure of 64 but I will keep an eye on this as it seems to be gradually coming up as her hypoxia is improving. 08/20/19 09:43 ABGs reveal pH of 7.40 with a PCO2 of 58.7 and a PaO2 of 62.0. Bicarbonate is 35.7 which is elevated O2 sats are 88.4% on 6 L by nasal cannula. 08/20/19 10:28 Labs are now back. White blood cell count is mildly elevated at 12.04. Differential shows 88% neutrophils and no band cells reported. Hemoglobin is very low at 7.1 with a hematocrit of 24.0. MCV is markedly elevated at 127.7. Bili count is also elevated at 530,000. The slight shows 2+ hypochromasia. 3+ macrocytosis. PT is elevated at 26.6 with an INR of 2.57 which is therapeutic. PTT is 37. It is suspect pneumonia I will start the patient on antibiotics. Allergic to amoxicillin and sulfa antibiotics and doxycycline. Will therefore use levaquin . Initial dose of be 750 mg IV. Chemistry is pending. Occult blood will be obtained from the rectal vault. Her pressure has improved to 111/51 since hypoxemia has been corrected to 92-93% on BiPAP. Test the findings with the . He indicates that she did receive all of her medications 6 morning except for the metoprolol and Cardizem because her blood pressure was already too low. He is okay with her receiving 2 units of packed cells. She will be given over approximately 3 hours. She will likely need Lasix in between each unit. 08/20/19 11:02 Chemistry has returned. Sodium is 138 with potassium low-normal at 3.5. Chloride low at 95. Bicarbonate is 36 elevated. And a gap is 10.5. BUN is 60 with a creatinine of 1.8. The elevated BUN suggest possible upper GI bleed. BUN/creatinine ratio is 33.3. Glucose elevated 179. Calcium is 8.9. Magnesium normal at 2.1. Bilirubin slightly elevated at 1.1. The remainder the liver function is normal. CK-MB is 1.3 troponin I is less than 0.029. C- reactive protein slightly elevated at 2.9. BNP is 5838. Total protein 7.8 with an albumin fraction slightly low at 3.4. TSH is normal at 1.153. Discussed case with Dr. Wesley hotel receptionist hospitalist with a view to admission to the hospital probably to the intensive care unit. 08/20/19 11:04 lab called over and her lactic acid is elevated at 2.1 likely due to poor perfusion of her peripheral vasculature due to low blood pressure and hypoxemia. Previous is secondary to sepsis. Second one will be done in 3 hours time.Guaiac was negative. 08/20/19 11:10. I have spoken to Dr Miranda - hotel receptionist hospitalist and patient will be admitted to the intensive care unit. Influenza screen did come back negative. CRP was 2.1. Departure - Departure Time of Disposition: 11:13 Disposition: Admitted As Inpatient 65 Condition: Serious Clinical Impression: Chronic atrial fibrillation, Anticoagulated on Coumadin, Pneumonia Respiratory failure with hypercapnia Qualifiers: Chronicity: acute on chronic Qualified Code(s): J96.22 - Acute and chronic respiratory failure with hypercapnia Anemia Qualifiers: Anemia type: due to chronic kidney disease Acute exacerbation of congestive heart failure Qualifiers: Heart failure type: combined systolic and diastolic Qualified Code(s): I50.43 - Acute on chronic combined systolic (congestive) and diastolic (congestive) heart failure - Discharge Information Sepsis Event Note - Evaluation Sepsis Screening Result: Possible Sepsis Risk - Focused Exam Vital Signs: Vital Signs Temp Pulse Resp BP Pulse Ox Pulse Ox Pulse Ox 08/20/19 08:59 93 L 08/20/19 08:56 88 L 08/20/19 08:36 36.4 C 67 32 H 118/41 L 84 L Date Exam was Performed: 08/20/19 Time Exam was Performed: 12:15 - My Orders Last 24 Hours: My Active Orders 08/20/19 08:56 Oxygen Therapy Adult [Oxygen Therapy, ED] [RC] ASDIRECTED 08/20/19 08:58 EKG Documentation Completion [RC] STAT 08/20/19 08:59 Oxygen Therapy [RC] ASDIRECTED URINALYSIS W/MICROSCOPIC [UA W/MICROSCOPIC] [URIN] Stat Sodium Chloride 0.9% [Saline Flush] 10 ml FLUSH ASDIRECTED PRN Blood Culture x2 Reflex Set [OM.PC] Stat Peripheral IV Insertion Adult [OM.PC] Stat 08/20/19 09:00 Peripheral IV Care [RC] . DIRECTED 08/20/19 09:11 BIPAP [RT BiPAP/CPAP] [RC] ASDIRECTED 08/20/19 09:20 CULTURE BLOOD [BC] Stat PACKED CELLS [RED BLOOD CELLS LP] [BBK] Stat TYPE AND SCREEN [BBK] Stat 08/20/19 10:35 CULTURE BLOOD [BC] Stat Guaiac [OCCULT BLOOD DIAGNOSTIC] [OP] Stat 08/20/19 10:36 Transfuse PRBC [Transfuse Red Blood Cells] [COMM] Stat 08/20/19 12:30 LACTIC ACID [CHEM] Stat - Assessment/Plan Last 24 Hours: My Active Orders 08/20/19 08:56 Oxygen Therapy Adult [Oxygen Therapy, ED] [RC] ASDIRECTED 08/20/19 08:58 EKG Documentation Completion [RC] STAT 08/20/19 08:59 Oxygen Therapy [RC] ASDIRECTED URINALYSIS W/MICROSCOPIC [UA W/MICROSCOPIC] [URIN] Stat Sodium Chloride 0.9% [Saline Flush] 10 ml FLUSH ASDIRECTED PRN Blood Culture x2 Reflex Set [OM.PC] Stat Peripheral IV Insertion Adult [OM.PC] Stat 08/20/19 09:00 Peripheral IV Care [RC] . DIRECTED 08/20/19 09:11 BIPAP [RT BiPAP/CPAP] [RC] ASDIRECTED 08/20/19 09:20 CULTURE BLOOD [BC] Stat PACKED CELLS [RED BLOOD CELLS LP] [BBK] Stat TYPE AND SCREEN [BBK] Stat 08/20/19 10:35 CULTURE BLOOD [BC] Stat Guaiac [OCCULT BLOOD DIAGNOSTIC] [OP] Stat 08/20/19 10:36 Transfuse PRBC [Transfuse Red Blood Cells] [COMM] Stat 08/20/19 12:30 LACTIC ACID [CHEM] Stat
[2019-08-20] MEDS ORDERED: Furosemide 40 MG/4 ML VIAL IVPUSH ONE ×2 (09:04→12:25)
--- NOTE | 2019-08-20 10:17 | CR ---
Chest: Portable view of the chest was obtained. Comparison: Prior chest x-ray of 09/23/18. Patchy increased density within the right base is seen as an interval change from prior study. Pulmonary vessels are minimally congested. Possible small bilateral pleural effusions are present. Prior sternotomy and prosthetic heart valve noted. Pacemaker is present. Bony structures are grossly intact. Impression: 1. Possible right lower lobe pneumonia. 2. Possible small bilateral pleural effusions with mild pulmonary vascular congestion. Diagnostic code #3 This report was dictated in [place] Standard Time
[2019-08-20] MEDS ORDERED: Levofloxacin/Dextrose 5%-Water 750 MG in Premix Bag 1 BAG IV ONE (10:33)
[2019-08-20] MEDS ORDERED: Sodium Chloride 0.9% 250 ML IV SCH (11:30)
--- NOTE | 2019-08-20 13:47 | PCM.HP.2 ---
H&P History of Present Illness - General Date of Service: 08/20/19 Admit Problem/Dx: Admission Diagnosis/Problem Admission Diagnosis/Problem Respiratory failure with hypercapnia Source of Information: Patient, Old Records, Provider, RN Notes Reviewed History Limitations: Reports: Respiratory Distress - History of Present Illness Initial Comments - Free Text/Narative: Impaired Vision, Hx/o Arrhythmia, HTN, HLD, SSS S/p Pacemaker Placement, HF with Preserved EF 50% 2018, HVR, Hx/o Pleural Effusion S/p Thoracentesis, PUD, OA/DJD, Alzheimer's Disease, Hypothyroidism, Respiratory Failure on 4L N Chronically, MDS, Anxiety and Depression who was brought in for evaluation of worsening health over the past weak primarily increased confusion, weakness, and shortness of breath. She carries no hx/o COPD but respiratory failure chronically on 4L NC. She has fever, chills and reduced appetite. Her states that she was wrapped up in bed a couple of days ago and her bed sheaths and pillows were wet with oral secretions. Her initial work up in ED shows a CBC significant for WBC of 12.04, RBC of 1.88 , Hgb of 7.1, Hct of 24, MCV of 127.7, MCH of 37.8, MCHC of 29.6, RDW of 74.5, Platelet # of 530, Neutrophils of 88%, Lymphocytes of 4% and ESR of > 120. Her coagulations are remarkable for PT of 26.6, INR of 2.57, and aPTT of 37. Her ABG shows pH of 7.40, pCO2 of 58.7, pO2 of 62, HCO3 of 35.7, and Sat of 88.4% on 44 % FiO2. Her Chemistry is significant for Cl of 95, CO2 of 36, BUN of 60, Cr of 1.8, BS of 179, LA of 2.1, Total bili of 1.1, CRP of 2.9,and ProBNP of 5838. Her UA is negative for UTI. Her CXR shows right lower lobe infiltrate and possible pleural effusion with increased lung markings. Patient received initial treatment in ED before coming in to the unit for further management. - Related Data Allergies/Adverse Reactions: Allergies Allergy/AdvReac Type Severity Reaction Status Date / Time GAL Inhibitors Allergy Swelling Verified 08/20/19 08:41 amoxicillin Allergy Hives Verified 08/20/19 08:41 doxycycline Allergy Swelling Verified 08/20/19 08:41 Sulfa (Sulfonamide Allergy Cannot Verified 08/20/19 08:41 Antibiotics) Remember Home Medications: Home Meds Furosemide [Lasix] 80 mg PO DAILY 12/29/15 [History] Metoprolol Tartrate 25 mg PO TID 12/29/15 [History] Pantoprazole [ProTONIX] 80 mg PO BID 12/29/15 [History] Potassium Chloride 20 meq PO BID 12/29/15 [History] Diltiazem [Cardizem CD] 120 mg PO DAILY #30 cap.cd 01/25/16 [Rx] Levothyroxine [Synthroid] 75 mcg PO ACBREAKFAST 03/23/17 [History] Sertraline [Zoloft] 50 mg PO 1200 03/23/17 [History] Warfarin Sodium [Jantoven] 2 mg PO SUTUTHSA 03/23/17 [History] Warfarin Sodium [Jantoven] 1 mg PO MOWEFR 01/30/18 [History] metOLazone [Metolazone] 2.5 mg PO MOTHFR 01/30/18 [History] Mirabegron [Myrbetriq] 25 mg PO DAILY 09/23/18 [History] Rosuvastatin [Crestor] 5 mg PO BEDTIME 10/02/18 [History] QUEtiapine [SEROquel] 25 mg PO BEDTIME 08/20/19 [History] Past Medical History HEENT History: Reports: Impaired Vision Other HEENT History: macular pucker Cardiovascular History: Reports: Arrhythmia, Heart Failure, Heart Valve Replacement, High Cholesterol, Hypertension, Pacemaker, Other (See Below) Respiratory History: Reports: Other (See Below) Other Respiratory History: Pt has had thoracentesis in the past. 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 - Infectious Disease History Infectious Disease History: Reports: Chicken Pox, Measles, Mumps - Past Surgical History HEENT Surgical History: Reports: Oral Surgery, Tonsillectomy Cardiovascular Surgical History: Reports: Pacer, Valve Replacement GI Surgical History: Reports: Appendectomy Female Surgical History: Reports: Hysterectomy, Salpingo-Oophorectomy Oncologic Surgical History: Reports: Bone Marrow Aspiration Social & Family History - Family History Family Medical History: Noncontributory Cardiac: Reports: Cardiomyopathy, Heart Failure, NM Other Cardiac Family History: son NM, mother CHF GI: Reports: Other (See Below) Other GI Family History: father had part of intenstine removed : Reports: Renal Disease/Insufficiency Other Family History: mother OBGYN: Reports: Neurological: Reports: CVA Other Neurological Family History: father Endocrine/Metabolic: Reports: Diabetes, type II Other Endocrine/Metabolic Family History: mother Oncologic: Reports: Colon Other Oncologic Family History: father - Tobacco Use Smoking Status *Q: Never Smoker - Caffeine Use Caffeine Use: Reports: None - Recreational Drug Use Recreational Drug Use: No - Living Situation & Occupation Living situation: Reports: , with Spouse Occupation: Retired H&P Review of Systems - Review of Systems: Review Of Systems: Unable To Obtain Reason Not Obtained: AMS and Respitarory Failure on BIPAP Exam - Exam Exam: See Below - Vital Signs Vital Signs: Last Vital Signs Temp 37.3 C 08/20/19 13:22 Pulse 60 08/20/19 12:45 Resp 30 H 08/20/19 13:22 BP 108/55 L 08/20/19 13:22 Pulse Ox 92 L 08/20/19 13:22 Weight: 68.266 kg - Exam Quality Assessment: Other (BIPAP) General: Sedated HEENT: Conjunctiva Clear, TMs Clear Neck: Supple, Trachea Midline Lungs: Normal Respiratory Effort, Decreased Breath Sounds Cardiovascular: Regular Rate, Regular Rhythm GI/Abdominal Exam: Normal Bowel Sounds, Soft, Non-Tender, No Organomegaly, No Distention, No Abnormal Bruit (Female) Exam: Deferred Rectal (Female) Exam: Deferred Back Exam: Normal Inspection, Decreased Range of Motion Extremities: Normal Inspection, Non-Tender, No Pedal Edema, Normal Capillary Refill Peripheral Pulses: 1+: Dorsalis Pedis (L), Dorsalis Pedis (R) Skin: Warm, Dry, Intact Neuro Extensive - Mental Status: Other (not appropriate due confusion) Neuro Extensive - Motor, Sensory, Reflexes: Other (not appropriate) Psychiatric: Other (arousable but currently on BIPAP) - Patient Data Lab Results Last 24 hrs: Laboratory Results - last 24 hr 08/20/19 08/20/19 08/20/19 Range/Units 09:06 09:20 09:20 WBC 12.04 H (3.98-10.04) K/mm3 RBC 1.88 L (3.98-5.22) M/mm3 Hgb 7.1 L* D (11.2-15.7) gm/dl Hct 24.0 L (34.1-44.9) % MCV 127.7 H (79.4-94.8) fl MCH 37.8 H (25.6-32.2) pg MCHC 29.6 L (32.2-35.5) g/dl RDW Std Deviation 74.5 H (36.4-46.3) fL Plt Count 530 H (182-369) K/mm3 MPV 11.0 (9.4-12.3) fl Neutrophils % (Manual) 88 H (40-60) % Band Neutrophils % 0 (0-10) % Lymphocytes % (Manual) 4 L (20-40) % Atypical Lymphs % 0 % Monocytes % (Manual) 7 (2-10) % Eosinophils % (Manual) 1 (0.7-5.8) % Basophils % (Manual) 0 L (0.1-1.2) Platelet Estimate Increased Hypochromasia 2+ moderate Anisocytosis Np2 Macrocytosis 3+ marked RBC Morph Comment Not Reportable ESR (0-20) mm/hr PT 26.6 H (9.7-12.0) SECONDS INR 2.57 APTT (22-31) SECONDS Puncture Site Lt radial ABG pH 7.40 (7.35-7.45) ABG pCO2 58.7 H (35.0-45.0) mmHg ABG pO2 62.0 L (80.0-100.0) mmHg ABG HCO3 35.7 H (22.0-26.0) meq/L ABG O2 Saturation 88.4 L (96.0-97.0) % ABG Base Excess 10.2 H (-2-2.0) Alden Test Positive A-a Gradient 179 mmHg O2 Delivery Device Nasal cannula Oxygen Flow Rate 6.0 FiO2 44.00 (21.00-100.00) % Sodium (136-145) mEq/L Potassium (3.5-5.1) mEq/L Chloride (98-107) mEq/L Carbon Dioxide (21-32) mEq/L Anion Gap (5-15) BUN (7-18) mg/dL Creatinine (0.55-1.02) mg/dL Est Cr Clr Drug Dosing Estimated GFR (MDRD) (>60) mL/min BUN/Creatinine Ratio (14-18) Glucose (83-115) mg/dL Lactic Acid (0.4-2.0) mmol/L Calcium (8.5-10.1) mg/dL Magnesium (1.8-2.4) mg/dl Total Bilirubin (0.2-1.0) mg/dL AST (15-37) U/L ALT (14-59) U/L Alkaline Phosphatase (46-116) U/L CK-MB (CK-2) (0-3.6) ng/ml Troponin I (0.00-0.056) ng/mL C-Reactive Protein (<1.0) mg/dL NT-Pro-B Natriuret Pep (0-450) pg/mL Total Protein (6.4-8.2) g/dl Albumin (3.4-5.0) g/dl Globulin gm/dL Albumin/Globulin Ratio (1-2) TSH 3rd Generation (0.358-3.74) uIU/mL Urine Color (Yellow) Urine Appearance (Clear) Urine pH (5.0-8.0) Ur Specific [place] (1.005-1.030) Urine Protein (Negative) Urine Glucose (UA) (Negative) Urine Ketones (Negative) Urine Occult Blood (Negative) Urine Nitrite (Negative) Urine Bilirubin (Negative) Urine Urobilinogen (0.2-1.0) Ur Leukocyte Esterase (Negative) Urine RBC (0-5) /hpf Urine WBC (0-5) /hpf Ur Squamous Epith Cells (0-5) /hpf Urine Bacteria (FEW) /hpf Urine Mucus (FEW) /hpf Blood Type Gel Antibody Screen Crossmatch 08/20/19 08/20/19 08/20/19 Range/Units 09:20 09:20 09:20 WBC (3.98-10.04) K/mm3 RBC (3.98-5.22) M/mm3 Hgb (11.2-15.7) gm/dl Hct (34.1-44.9) % MCV (79.4-94.8) fl MCH (25.6-32.2) pg MCHC (32.2-35.5) g/dl RDW Std Deviation (36.4-46.3) fL Plt Count (182-369) K/mm3 MPV (9.4-12.3) fl Neutrophils % (Manual) (40-60) % Band Neutrophils % (0-10) % Lymphocytes % (Manual) (20-40) % Atypical Lymphs % % Monocytes % (Manual) (2-10) % Eosinophils % (Manual) (0.7-5.8) % Basophils % (Manual) (0.1-1.2) Platelet Estimate Hypochromasia Anisocytosis Macrocytosis RBC Morph Comment ESR > 120 H (0-20) mm/hr PT (9.7-12.0) SECONDS INR APTT 37 H (22-31) SECONDS Puncture Site ABG pH (7.35-7.45) ABG pCO2 (35.0-45.0) mmHg ABG pO2 (80.0-100.0) mmHg ABG HCO3 (22.0-26.0) meq/L ABG O2 Saturation (96.0-97.0) % ABG Base Excess (-2-2.0) Alden Test A-a Gradient mmHg O2 Delivery Device Oxygen Flow Rate FiO2 (21.00-100.00) % Sodium 138 (136-145) mEq/L Potassium 3.5 (3.5-5.1) mEq/L Chloride 95 L (98-107) mEq/L Carbon Dioxide 36 H (21-32) mEq/L Anion Gap 10.5 (5-15) BUN 60 H (7-18) mg/dL Creatinine 1.8 H (0.55-1.02) mg/dL Est Cr Clr Drug Dosing TNP Estimated GFR (MDRD) 27 (>60) mL/min BUN/Creatinine Ratio 33.3 H (14-18) Glucose 179 H (83-115) mg/dL Lactic Acid (0.4-2.0) mmol/L Calcium 8.9 (8.5-10.1) mg/dL Magnesium (1.8-2.4) mg/dl Total Bilirubin 1.1 H (0.2-1.0) mg/dL AST 28 (15-37) U/L ALT 21 (14-59) U/L Alkaline Phosphatase 78 (46-116) U/L CK-MB (CK-2) 1.3 (0-3.6) ng/ml Troponin I 0.029 (0.00-0.056) ng/mL C-Reactive Protein 2.9 H* (<1.0) mg/dL NT-Pro-B Natriuret Pep (0-450) pg/mL Total Protein 7.8 (6.4-8.2) g/dl Albumin 3.4 (3.4-5.0) g/dl Globulin 4.4 gm/dL Albumin/Globulin Ratio 0.8 L (1-2) TSH 3rd Generation (0.358-3.74) uIU/mL Urine Color (Yellow) Urine Appearance (Clear) Urine pH (5.0-8.0) Ur Specific [place] (1.005-1.030) Urine Protein (Negative) Urine Glucose (UA) (Negative) Urine Ketones (Negative) Urine Occult Blood (Negative) Urine Nitrite (Negative) Urine Bilirubin (Negative) Urine Urobilinogen (0.2-1.0) Ur Leukocyte Esterase (Negative) Urine RBC (0-5) /hpf Urine WBC (0-5) /hpf Ur Squamous Epith Cells (0-5) /hpf Urine Bacteria (FEW) /hpf Urine Mucus (FEW) /hpf Blood Type Gel Antibody Screen Crossmatch 08/20/19 08/20/19 08/20/19 Range/Units 09:20 09:20 09:20 WBC (3.98-10.04) K/mm3 RBC (3.98-5.22) M/mm3 Hgb (11.2-15.7) gm/dl Hct (34.1-44.9) % MCV (79.4-94.8) fl MCH (25.6-32.2) pg MCHC (32.2-35.5) g/dl RDW Std Deviation (36.4-46.3) fL Plt Count (182-369) K/mm3 MPV (9.4-12.3) fl Neutrophils % (Manual) (40-60) % Band Neutrophils % (0-10) % Lymphocytes % (Manual) (20-40) % Atypical Lymphs % % Monocytes % (Manual) (2-10) % Eosinophils % (Manual) (0.7-5.8) % Basophils % (Manual) (0.1-1.2) Platelet Estimate Hypochromasia Anisocytosis Macrocytosis RBC Morph Comment ESR (0-20) mm/hr PT (9.7-12.0) SECONDS INR APTT (22-31) SECONDS Puncture Site ABG pH (7.35-7.45) ABG pCO2 (35.0-45.0) mmHg ABG pO2 (80.0-100.0) mmHg ABG HCO3 (22.0-26.0) meq/L ABG O2 Saturation (96.0-97.0) % ABG Base Excess (-2-2.0) Alden Test A-a Gradient mmHg O2 Delivery Device Oxygen Flow Rate FiO2 (21.00-100.00) % Sodium (136-145) mEq/L Potassium (3.5-5.1) mEq/L Chloride (98-107) mEq/L Carbon Dioxide (21-32) mEq/L Anion Gap (5-15) BUN (7-18) mg/dL Creatinine (0.55-1.02) mg/dL Est Cr Clr Drug Dosing Estimated GFR (MDRD) (>60) mL/min BUN/Creatinine Ratio (14-18) Glucose (83-115) mg/dL Lactic Acid 2.1 H* (0.4-2.0) mmol/L Calcium (8.5-10.1) mg/dL Magnesium 2.1 (1.8-2.4) mg/dl Total Bilirubin (0.2-1.0) mg/dL AST (15-37) U/L ALT (14-59) U/L Alkaline Phosphatase (46-116) U/L CK-MB (CK-2) (0-3.6) ng/ml Troponin I (0.00-0.056) ng/mL C-Reactive Protein (<1.0) mg/dL NT-Pro-B Natriuret Pep 5838 H (0-450) pg/mL Total Protein (6.4-8.2) g/dl Albumin (3.4-5.0) g/dl Globulin gm/dL Albumin/Globulin Ratio (1-2) TSH 3rd Generation 1.153 (0.358-3.74) uIU/mL Urine Color (Yellow) Urine Appearance (Clear) Urine pH (5.0-8.0) Ur Specific [place] (1.005-1.030) Urine Protein (Negative) Urine Glucose (UA) (Negative) Urine Ketones (Negative) Urine Occult Blood (Negative) Urine Nitrite (Negative) Urine Bilirubin (Negative) Urine Urobilinogen (0.2-1.0) Ur Leukocyte Esterase (Negative) Urine RBC (0-5) /hpf Urine WBC (0-5) /hpf Ur Squamous Epith Cells (0-5) /hpf Urine Bacteria (FEW) /hpf Urine Mucus (FEW) /hpf Blood Type Gel Antibody Screen Crossmatch 08/20/19 08/20/19 08/20/19 Range/Units 09:20 12:00 12:45 WBC (3.98-10.04) K/mm3 RBC (3.98-5.22) M/mm3 Hgb (11.2-15.7) gm/dl Hct (34.1-44.9) % MCV (79.4-94.8) fl MCH (25.6-32.2) pg MCHC (32.2-35.5) g/dl RDW Std Deviation (36.4-46.3) fL Plt Count (182-369) K/mm3 MPV (9.4-12.3) fl Neutrophils % (Manual) (40-60) % Band Neutrophils % (0-10) % Lymphocytes % (Manual) (20-40) % Atypical Lymphs % % Monocytes % (Manual) (2-10) % Eosinophils % (Manual) (0.7-5.8) % Basophils % (Manual) (0.1-1.2) Platelet Estimate Hypochromasia Anisocytosis Macrocytosis RBC Morph Comment ESR (0-20) mm/hr PT (9.7-12.0) SECONDS INR APTT (22-31) SECONDS Puncture Site ABG pH (7.35-7.45) ABG pCO2 (35.0-45.0) mmHg ABG pO2 (80.0-100.0) mmHg ABG HCO3 (22.0-26.0) meq/L ABG O2 Saturation (96.0-97.0) % ABG Base Excess (-2-2.0) Alden Test A-a Gradient mmHg O2 Delivery Device Oxygen Flow Rate FiO2 (21.00-100.00) % Sodium (136-145) mEq/L Potassium (3.5-5.1) mEq/L Chloride (98-107) mEq/L Carbon Dioxide (21-32) mEq/L Anion Gap (5-15) BUN (7-18) mg/dL Creatinine (0.55-1.02) mg/dL Est Cr Clr Drug Dosing Estimated GFR (MDRD) (>60) mL/min BUN/Creatinine Ratio (14-18) Glucose (83-115) mg/dL Lactic Acid 1.3 (0.4-2.0) mmol/L Calcium (8.5-10.1) mg/dL Magnesium (1.8-2.4) mg/dl Total Bilirubin (0.2-1.0) mg/dL AST (15-37) U/L ALT (14-59) U/L Alkaline Phosphatase (46-116) U/L CK-MB (CK-2) (0-3.6) ng/ml Troponin I (0.00-0.056) ng/mL C-Reactive Protein (<1.0) mg/dL NT-Pro-B Natriuret Pep (0-450) pg/mL Total Protein (6.4-8.2) g/dl Albumin (3.4-5.0) g/dl Globulin gm/dL Albumin/Globulin Ratio (1-2) TSH 3rd Generation (0.358-3.74) uIU/mL Urine Color Yellow (Yellow) Urine Appearance Clear (Clear) Urine pH 6.5 (5.0-8.0) Ur Specific [place] 1.020 (1.005-1.030) Urine Protein Negative (Negative) Urine Glucose (UA) Negative (Negative) Urine Ketones Negative (Negative) Urine Occult Blood Negative (Negative) Urine Nitrite Negative (Negative) Urine Bilirubin Negative (Negative) Urine Urobilinogen 0.2 (0.2-1.0) Ur Leukocyte Esterase Negative (Negative) Urine RBC 0-5 (0-5) /hpf Urine WBC 0-5 (0-5) /hpf Ur Squamous Epith Cells 0-5 (0-5) /hpf Urine Bacteria Moderate H (FEW) /hpf Urine Mucus Not seen (FEW) /hpf Blood Type A POSITIVE Gel Antibody Screen Negative Crossmatch See Detail Result Diagrams: 08/22/19 05:55 08/22/19 05:55 [place] Results Last 24 hrs: Microbiology 08/20/19 10:40 Influenza Type A Antigen Screen - Final Nasal Aspirate, Unspecified NEGATIVE INFLUENZA A VIRUS AG REFERENCE RANGE: NEGATIVE Influenza Type B Antigen Screen - Final NEGATIVE INFLUENZA B VIRUS AG REFERENCE RANGE: NEGATIVE Sepsis Event Note - Evaluation Sepsis Screening Result: Possible Sepsis Risk - Focused Exam Vital Signs: Vital Signs Temp Temp Pulse Resp BP Pulse Ox Pulse Ox 08/20/19 13:22 37.3 C 30 H 108/55 L 92 L 08/20/19 12:45 60 26 H 102/54 L 94 L 08/20/19 11:51 36.7 C 61 22 H 100/47 L 93 L 08/20/19 11:36 36.3 C 20 99/48 L 89 L 08/20/19 08:59 93 L 08/20/19 08:56 08/20/19 08:36 36.4 C 67 32 H 118/41 L 84 L Pulse Ox 08/20/19 13:22 08/20/19 12:45 08/20/19 11:51 08/20/19 11:36 08/20/19 08:59 08/20/19 08:56 88 L 08/20/19 08:36 Date Exam was Performed: 08/22/19 Time Exam was Performed: 13:13 Problem List Initiated/Reviewed/Updated: Yes Orders Last 24hrs: Active Orders 24 hr Category Date Time Status Admission Status [Patient Status] [ADT] Routine ADT 08/20/19 11:11 Active BIPAP [RT BiPAP/CPAP] [RC] ASDIRECTED Care 08/20/19 09:11 Active EKG Documentation Completion [RC] STAT Care 08/20/19 08:58 Active [place] Catheter Insertion [Insert Urinary Catheter] [OM. Care 08/20/19 11:45 Ordered PC] Q24H Oxygen Therapy Adult [Oxygen Therapy, ED] [RC] Care 08/20/19 08:56 Active ASDIRECTED Oxygen Therapy [RC] ASDIRECTED Care 08/20/19 08:59 Active Peripheral IV Care [RC] . DIRECTED Care 08/20/19 09:00 Active Urinary Catheter Assessment [RC] ASDIRECTED Care 08/20/19 11:45 Active CULTURE BLOOD [BC] Stat Lab 08/20/19 09:20 Received CULTURE BLOOD [BC] Stat Lab 08/20/19 10:35 Received Guaiac [OCCULT BLOOD DIAGNOSTIC] [OP] Stat Lab 08/20/19 10:35 Ordered PACKED CELLS [RED BLOOD CELLS LP] [BBK] Stat Lab 08/20/19 09:20 Results TYPE AND SCREEN [BBK] Stat Lab 08/20/19 09:20 Results Sodium Chloride 0.9% [Normal Saline] 250 ml Med 08/20/19 11:30 Active IV ASDIRECTED Sodium Chloride 0.9% [Saline Flush] Med 08/20/19 08:59 Active 10 ml FLUSH ASDIRECTED PRN Blood Culture x2 Reflex Set [OM.PC] Stat Oth 08/20/19 08:59 Ordered Peripheral IV Insertion Adult [OM.PC] Stat Oth 08/20/19 08:59 Ordered Transfuse PRBC [Transfuse Red Blood Cells] [COMM] Stat Oth 08/20/19 10:36 Ordered Medication Orders Sodium Chloride (Normal Saline) 250 mls @ 25 mls/hr IV ASDIRECTED ELOY Last Admin: 08/20/19 11:30 Dose: 25 mls/hr Sodium Chloride (Saline Flush) 10 ml FLUSH ASDIRECTED PRN PRN Reason: Keep Vein Open Last Admin: 08/20/19 12:52 Dose: 10 ml Assessment/Plan Comment:: Acute: * Early Developing Sepsis 2/2 PNA. Sepsis work up * CAP/PNA. Right Lower Lobe noted on CXR. Serial CXR as indicated, Sputum Cx and RT to assess and treat as indicated * Leukocytosis with WBC of 12.04. 2/2 Above. 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 Hgb of 7.1. Occult negative in ED. Receiving 2 units of PRBCs. * Thrombocytosis with Platelet # of 530. Will monitor * FRANKIE vs CKD. BUN of 60 and Cr of 1.8. Likely has underlying CKD. Monitor Is/Os * Metabolic Acidosis. LA of 2.1. Likley 2/2 Sepsis. Will monitor * Hyperglycemia. BS of 179. carries no diabetes or glucose intolerance * AMS 2/2 Metabolic Encephalopathy. Has baseline Dementia. Aspiration Precautions * HF with Preserved EF of 50%. Acute on chronic due to valvular Disfunction. CXR shows pleural effusion and pulmonary vascular congestion. * Elevated proBNP level of 5838. Carries a hx/o HF with Preserved EF of 50% with Severe Mitral Annular Calcification, Mod-Severe TV Regurgitation and Mild- Mod MV regurgitation 01/31/2018 Chronic: Impaired Vision, Hx/o Arrhythmia, HTN, HLD, SSS S/p Pacemaker Placement , HF with Preserved EF 50% 2018, HVR, Hx/o Pleural Effusion S/p Thoracentesis, PUD, OA/DJD, Alzheimer's Disease, Hypothyroidism, Respiratory Failure on 4L N Chronically, MDS, Anxiety and Depression. Plan: Admit to ICU. Sepsis work up. IV Antibiotic. NPO for now and continue BIPAP. Aspiration precautions. Routine AM Labs. DVT/Stroke Prophylaxis. Hold Warfarin due to Anemia and Possible GI Bleed. Code status is DNR. Prognosis is overall poor.
[2019-08-20] MEDS ORDERED: Acetaminophen 325 MG Tab PO PRN (14:01)
[2019-08-20] MEDS ORDERED: Ondansetron 4 MG/2 ML SDV IV PRN (14:01)
[2019-08-20] MEDS ORDERED: HYDROmorphone 0.5 MG/0.5 ML Syringe IVPUSH PRN (14:01)
[2019-08-20] MEDS ORDERED: Furosemide 40 MG/4 ML VIAL ONE (14:33)
[2019-08-20] MEDS: Pantoprazole 40 MG Vial IV SCH (14:39)
[2019-08-20] MEDS ORDERED: Norepinephrine 4 MG/4 ML SDV ONE (23:39)
[2019-08-20] MEDS ORDERED: Norepinephrine 4 MG in Dextrose 5% in Water 246 ML IV SCH ×2 (23:45)
[2019-08-21] MEDS: Potassium Chloride 10 MEQ in Premix Bag 1 BAG IV SCH ×6 (01:38→06:48)
[2019-08-21] MEDS: Pantoprazole 40 MG Vial IV SCH ×2 (02:02→16:16)
--- NOTE | 2019-08-21 06:51 | PCM.PN ---
- General Info Date of Service: 08/21/19 Admission Dx/Problem (Free Text): Admission Diagnosis/Problem Admission Diagnosis/Problem Respiratory failure with hypercapnia Functional Status: Reports: Pain Controlled, Urinating. Denies: Tolerating Diet , Ambulating - Review of Systems General: Denies: Fever, Chills HEENT: Reports: No Symptoms Pulmonary: Reports: Shortness of Breath Gastrointestinal: Denies: Abdominal Pain, Nausea, Vomiting Genitourinary: Reports: No Symptoms Musculoskeletal: Reports: No Symptoms Skin: Denies: Cyanosis, Mottled Neurological: Reports: Confusion Psychiatric: Denies: Depression, Cravings, Hallucinations Systems Review Comment:: She got hypotensive overnight so pressor was started and vancomycin was added to her antibiotic regimen. Her Hgb now improved to 9.4 grams. She is not quite back to her baseline but arousable to verbal calls. - Patient Data Vitals - Most Recent: Last Vital Signs Temp 37.0 C 08/21/19 04:00 Pulse 60 08/21/19 01:30 Resp 30 H 08/21/19 06:00 BP 119/55 L 08/21/19 06:00 Pulse Ox 95 08/21/19 06:06 Weight - Most Recent: 68.266 kg I&O - Last 24 Hours: Intake & Output 08/20/19 08/20/19 08/21/19 14:59 22:59 06:59 Intake Total 341 437 513 Output Total 625 6415 750 Balance -133 -4160 -657 Lab Results Last 24 Hours: Laboratory Results - last 24 hr 08/20/19 08/20/19 08/20/19 Range/Units 09:06 09:20 09:20 WBC 12.04 H (3.98-10.04) K/mm3 RBC 1.88 L (3.98-5.22) M/mm3 Hgb 7.1 L* D (11.2-15.7) gm/dl Hct 24.0 L (34.1-44.9) % MCV 127.7 H (79.4-94.8) fl MCH 37.8 H (25.6-32.2) pg MCHC 29.6 L (32.2-35.5) g/dl RDW Std Deviation 74.5 H (36.4-46.3) fL Plt Count 530 H (182-369) K/mm3 MPV 11.0 (9.4-12.3) fl Neut % (Auto) (34.0-71.1) % Lymph % (Auto) (19.3-51.7) % [place] % (Auto) (4.7-12.5) % Eos % (Auto) (0.7-5.8) Baso % (Auto) (0.1-1.2) % Neut # (Auto) (1.56-6.13) K/mm3 Lymph # (Auto) (1.18-3.74) K/mm3 [place] # (Auto) (0.24-0.36) K/mm3 Eos # (Auto) (0.04-0.36) K/mm3 Baso # (Auto) (0.01-0.08) K/mm3 Neutrophils % (Manual) 88 H (40-60) % Band Neutrophils % 0 (0-10) % Lymphocytes % (Manual) 4 L (20-40) % Atypical Lymphs % 0 % Monocytes % (Manual) 7 (2-10) % Eosinophils % (Manual) 1 (0.7-5.8) % Basophils % (Manual) 0 L (0.1-1.2) Platelet Estimate Increased Hypochromasia 2+ moderate Anisocytosis Np2 Macrocytosis 3+ marked RBC Morph Comment Not Reportable ESR (0-20) mm/hr PT 26.6 H (9.7-12.0) SECONDS INR 2.57 APTT (22-31) SECONDS Puncture Site Lt radial ABG pH 7.40 (7.35-7.45) ABG pCO2 58.7 H (35.0-45.0) mmHg ABG pO2 62.0 L (80.0-100.0) mmHg ABG HCO3 35.7 H (22.0-26.0) meq/L ABG O2 Saturation 88.4 L (96.0-97.0) % ABG Base Excess 10.2 H (-2-2.0) [place]en Test Positive A-a Gradient 179 mmHg O2 Delivery Device Nasal cannula Oxygen Flow Rate 6.0 FiO2 44.00 (21.00-100.00) % Sodium (136-145) mEq/L Potassium (3.5-5.1) mEq/L Chloride (98-107) mEq/L Carbon Dioxide (21-32) mEq/L Anion Gap (5-15) BUN (7-18) mg/dL Creatinine (0.55-1.02) mg/dL Est Cr Clr Drug Dosing Estimated GFR (MDRD) (>60) mL/min BUN/Creatinine Ratio (14-18) Glucose (83-115) mg/dL Lactic Acid (0.4-2.0) mmol/L Calcium (8.5-10.1) mg/dL Magnesium (1.8-2.4) mg/dl Total Bilirubin (0.2-1.0) mg/dL AST (15-37) U/L ALT (14-59) U/L Alkaline Phosphatase (46-116) U/L CK-MB (CK-2) (0-3.6) ng/ml Troponin I (0.00-0.056) ng/mL C-Reactive Protein (<1.0) mg/dL NT-Pro-B Natriuret Pep (0-450) pg/mL Total Protein (6.4-8.2) g/dl Albumin (3.4-5.0) g/dl Globulin gm/dL Albumin/Globulin Ratio (1-2) TSH 3rd Generation (0.358-3.74) uIU/mL Urine Color (Yellow) Urine Appearance (Clear) Urine pH (5.0-8.0) Ur Specific [place] (1.005-1.030) Urine Protein (Negative) Urine Glucose (UA) (Negative) Urine Ketones (Negative) Urine Occult Blood (Negative) Urine Nitrite (Negative) Urine Bilirubin (Negative) Urine Urobilinogen (0.2-1.0) Ur Leukocyte Esterase (Negative) Urine RBC (0-5) /hpf Urine WBC (0-5) /hpf Ur Squamous Epith Cells (0-5) /hpf Urine Bacteria (FEW) /hpf Urine Mucus (FEW) /hpf Blood Type Gel Antibody Screen Crossmatch 08/20/19 08/20/19 08/20/19 Range/Units 09:20 09:20 09:20 WBC (3.98-10.04) K/mm3 RBC (3.98-5.22) M/mm3 Hgb (11.2-15.7) gm/dl Hct (34.1-44.9) % MCV (79.4-94.8) fl MCH (25.6-32.2) pg MCHC (32.2-35.5) g/dl RDW Std Deviation (36.4-46.3) fL Plt Count (182-369) K/mm3 MPV (9.4-12.3) fl Neut % (Auto) (34.0-71.1) % Lymph % (Auto) (19.3-51.7) % [place] % (Auto) (4.7-12.5) % Eos % (Auto) (0.7-5.8) Baso % (Auto) (0.1-1.2) % Neut # (Auto) (1.56-6.13) K/mm3 Lymph # (Auto) (1.18-3.74) K/mm3 [place] # (Auto) (0.24-0.36) K/mm3 Eos # (Auto) (0.04-0.36) K/mm3 Baso # (Auto) (0.01-0.08) K/mm3 Neutrophils % (Manual) (40-60) % Band Neutrophils % (0-10) % Lymphocytes % (Manual) (20-40) % Atypical Lymphs % % Monocytes % (Manual) (2-10) % Eosinophils % (Manual) (0.7-5.8) % Basophils % (Manual) (0.1-1.2) Platelet Estimate Hypochromasia Anisocytosis Macrocytosis RBC Morph Comment ESR > 120 H (0-20) mm/hr PT (9.7-12.0) SECONDS INR APTT 37 H (22-31) SECONDS Puncture Site ABG pH (7.35-7.45) ABG pCO2 (35.0-45.0) mmHg ABG pO2 (80.0-100.0) mmHg ABG HCO3 (22.0-26.0) meq/L ABG O2 Saturation (96.0-97.0) % ABG Base Excess (-2-2.0) Alden Test A-a Gradient mmHg O2 Delivery Device Oxygen Flow Rate FiO2 (21.00-100.00) % Sodium 138 (136-145) mEq/L Potassium 3.5 (3.5-5.1) mEq/L Chloride 95 L (98-107) mEq/L Carbon Dioxide 36 H (21-32) mEq/L Anion Gap 10.5 (5-15) BUN 60 H (7-18) mg/dL Creatinine 1.8 H (0.55-1.02) mg/dL Est Cr Clr Drug Dosing TNP Estimated GFR (MDRD) 27 (>60) mL/min BUN/Creatinine Ratio 33.3 H (14-18) Glucose 179 H (83-115) mg/dL Lactic Acid (0.4-2.0) mmol/L Calcium 8.9 (8.5-10.1) mg/dL Magnesium (1.8-2.4) mg/dl Total Bilirubin 1.1 H (0.2-1.0) mg/dL AST 28 (15-37) U/L ALT 21 (14-59) U/L Alkaline Phosphatase 78 (46-116) U/L CK-MB (CK-2) 1.3 (0-3.6) ng/ml Troponin I 0.029 (0.00-0.056) ng/mL C-Reactive Protein 2.9 H* (<1.0) mg/dL NT-Pro-B Natriuret Pep (0-450) pg/mL Total Protein 7.8 (6.4-8.2) g/dl Albumin 3.4 (3.4-5.0) g/dl Globulin 4.4 gm/dL Albumin/Globulin Ratio 0.8 L (1-2) TSH 3rd Generation (0.358-3.74) uIU/mL Urine Color (Yellow) Urine Appearance (Clear) Urine pH (5.0-8.0) Ur Specific [place] (1.005-1.030) Urine Protein (Negative) Urine Glucose (UA) (Negative) Urine Ketones (Negative) Urine Occult Blood (Negative) Urine Nitrite (Negative) Urine Bilirubin (Negative) Urine Urobilinogen (0.2-1.0) Ur Leukocyte Esterase (Negative) Urine RBC (0-5) /hpf Urine WBC (0-5) /hpf Ur Squamous Epith Cells (0-5) /hpf Urine Bacteria (FEW) /hpf Urine Mucus (FEW) /hpf Blood Type Gel Antibody Screen Crossmatch 08/20/19 08/20/19 08/20/19 Range/Units 09:20 09:20 09:20 WBC (3.98-10.04) K/mm3 RBC (3.98-5.22) M/mm3 Hgb (11.2-15.7) gm/dl Hct (34.1-44.9) % MCV (79.4-94.8) fl MCH (25.6-32.2) pg MCHC (32.2-35.5) g/dl RDW Std Deviation (36.4-46.3) fL Plt Count (182-369) K/mm3 MPV (9.4-12.3) fl Neut % (Auto) (34.0-71.1) % Lymph % (Auto) (19.3-51.7) % [place] % (Auto) (4.7-12.5) % Eos % (Auto) (0.7-5.8) Baso % (Auto) (0.1-1.2) % Neut # (Auto) (1.56-6.13) K/mm3 Lymph # (Auto) (1.18-3.74) K/mm3 [place] # (Auto) (0.24-0.36) K/mm3 Eos # (Auto) (0.04-0.36) K/mm3 Baso # (Auto) (0.01-0.08) K/mm3 Neutrophils % (Manual) (40-60) % Band Neutrophils % (0-10) % Lymphocytes % (Manual) (20-40) % Atypical Lymphs % % Monocytes % (Manual) (2-10) % Eosinophils % (Manual) (0.7-5.8) % Basophils % (Manual) (0.1-1.2) Platelet Estimate Hypochromasia Anisocytosis Macrocytosis RBC Morph Comment ESR (0-20) mm/hr PT (9.7-12.0) SECONDS INR APTT (22-31) SECONDS Puncture Site ABG pH (7.35-7.45) ABG pCO2 (35.0-45.0) mmHg ABG pO2 (80.0-100.0) mmHg ABG HCO3 (22.0-26.0) meq/L ABG O2 Saturation (96.0-97.0) % ABG Base Excess (-2-2.0) [place] Test A-a Gradient mmHg O2 Delivery Device Oxygen Flow Rate FiO2 (21.00-100.00) % Sodium (136-145) mEq/L Potassium (3.5-5.1) mEq/L Chloride (98-107) mEq/L Carbon Dioxide (21-32) mEq/L Anion Gap (5-15) BUN (7-18) mg/dL Creatinine (0.55-1.02) mg/dL Est Cr Clr Drug Dosing Estimated GFR (MDRD) (>60) mL/min BUN/Creatinine Ratio (14-18) Glucose (83-115) mg/dL Lactic Acid 2.1 H* (0.4-2.0) mmol/L Calcium (8.5-10.1) mg/dL Magnesium 2.1 (1.8-2.4) mg/dl Total Bilirubin (0.2-1.0) mg/dL AST (15-37) U/L ALT (14-59) U/L Alkaline Phosphatase (46-116) U/L CK-MB (CK-2) (0-3.6) ng/ml Troponin I (0.00-0.056) ng/mL C-Reactive Protein (<1.0) mg/dL NT-Pro-B Natriuret Pep 5838 H (0-450) pg/mL Total Protein (6.4-8.2) g/dl Albumin (3.4-5.0) g/dl Globulin gm/dL Albumin/Globulin Ratio (1-2) TSH 3rd Generation 1.153 (0.358-3.74) uIU/mL Urine Color (Yellow) Urine Appearance (Clear) Urine pH (5.0-8.0) Ur Specific [place] (1.005-1.030) Urine Protein (Negative) Urine Glucose (UA) (Negative) Urine Ketones (Negative) Urine Occult Blood (Negative) Urine Nitrite (Negative) Urine Bilirubin (Negative) Urine Urobilinogen (0.2-1.0) Ur Leukocyte Esterase (Negative) Urine RBC (0-5) /hpf Urine WBC (0-5) /hpf Ur Squamous Epith Cells (0-5) /hpf Urine Bacteria (FEW) /hpf Urine Mucus (FEW) /hpf Blood Type Gel Antibody Screen Crossmatch 08/20/19 08/20/19 08/20/19 Range/Units 09:20 12:00 12:45 WBC (3.98-10.04) K/mm3 RBC (3.98-5.22) M/mm3 Hgb (11.2-15.7) gm/dl Hct (34.1-44.9) % MCV (79.4-94.8) fl MCH (25.6-32.2) pg MCHC (32.2-35.5) g/dl RDW Std Deviation (36.4-46.3) fL Plt Count (182-369) K/mm3 MPV (9.4-12.3) fl Neut % (Auto) (34.0-71.1) % Lymph % (Auto) (19.3-51.7) % [place] % (Auto) (4.7-12.5) % Eos % (Auto) (0.7-5.8) Baso % (Auto) (0.1-1.2) % Neut # (Auto) (1.56-6.13) K/mm3 Lymph # (Auto) (1.18-3.74) K/mm3 [place] # (Auto) (0.24-0.36) K/mm3 Eos # (Auto) (0.04-0.36) K/mm3 Baso # (Auto) (0.01-0.08) K/mm3 Neutrophils % (Manual) (40-60) % Band Neutrophils % (0-10) % Lymphocytes % (Manual) (20-40) % Atypical Lymphs % % Monocytes % (Manual) (2-10) % Eosinophils % (Manual) (0.7-5.8) % Basophils % (Manual) (0.1-1.2) Platelet Estimate Hypochromasia Anisocytosis Macrocytosis RBC Morph Comment ESR (0-20) mm/hr PT (9.7-12.0) SECONDS INR APTT (22-31) SECONDS Puncture Site ABG pH (7.35-7.45) ABG pCO2 (35.0-45.0) mmHg ABG pO2 (80.0-100.0) mmHg ABG HCO3 (22.0-26.0) meq/L ABG O2 Saturation (96.0-97.0) % ABG Base Excess (-2-2.0) [place] Test A-a Gradient mmHg O2 Delivery Device Oxygen Flow Rate FiO2 (21.00-100.00) % Sodium (136-145) mEq/L Potassium (3.5-5.1) mEq/L Chloride (98-107) mEq/L Carbon Dioxide (21-32) mEq/L Anion Gap (5-15) BUN (7-18) mg/dL Creatinine (0.55-1.02) mg/dL Est Cr Clr Drug Dosing Estimated GFR (MDRD) (>60) mL/min BUN/Creatinine Ratio (14-18) Glucose (83-115) mg/dL Lactic Acid 1.3 (0.4-2.0) mmol/L Calcium (8.5-10.1) mg/dL Magnesium (1.8-2.4) mg/dl Total Bilirubin (0.2-1.0) mg/dL AST (15-37) U/L ALT (14-59) U/L Alkaline Phosphatase (46-116) U/L CK-MB (CK-2) (0-3.6) ng/ml Troponin I (0.00-0.056) ng/mL C-Reactive Protein (<1.0) mg/dL NT-Pro-B Natriuret Pep (0-450) pg/mL Total Protein (6.4-8.2) g/dl Albumin (3.4-5.0) g/dl Globulin gm/dL Albumin/Globulin Ratio (1-2) TSH 3rd Generation (0.358-3.74) uIU/mL Urine Color Yellow (Yellow) Urine Appearance Clear (Clear) Urine pH 6.5 (5.0-8.0) Ur Specific [place] 1.020 (1.005-1.030) Urine Protein Negative (Negative) Urine Glucose (UA) Negative (Negative) Urine Ketones Negative (Negative) Urine Occult Blood Negative (Negative) Urine Nitrite Negative (Negative) Urine Bilirubin Negative (Negative) Urine Urobilinogen 0.2 (0.2-1.0) Ur Leukocyte Esterase Negative (Negative) Urine RBC 0-5 (0-5) /hpf Urine WBC 0-5 (0-5) /hpf Ur Squamous Epith Cells 0-5 (0-5) /hpf Urine Bacteria Moderate H (FEW) /hpf Urine Mucus Not seen (FEW) /hpf Blood Type A POSITIVE Gel Antibody Screen Negative Crossmatch See Detail 08/20/19 08/21/19 08/21/19 Range/Units 20:59 00:45 04:50 WBC 11.65 H (3.98-10.04) K/mm3 RBC 2.75 L (3.98-5.22) M/mm3 Hgb 8.9 L D 9.4 L (11.2-15.7) gm/dl Hct 28.6 L 30.8 L (34.1-44.9) % MCV 112.0 H D (79.4-94.8) fl MCH 34.2 H (25.6-32.2) pg MCHC 30.5 L (32.2-35.5) g/dl RDW Std Deviation (36.4-46.3) fL Plt Count 463 H (182-369) K/mm3 MPV 11.0 (9.4-12.3) fl Neut % (Auto) 82.0 H (34.0-71.1) % Lymph % (Auto) 7.6 L (19.3-51.7) % [place] % (Auto) 10.0 (4.7-12.5) % Eos % (Auto) 0 L (0.7-5.8) Baso % (Auto) 0.1 (0.1-1.2) % Neut # (Auto) 9.55 H (1.56-6.13) K/mm3 Lymph # (Auto) 0.89 L (1.18-3.74) K/mm3 [place] # (Auto) 1.16 H (0.24-0.36) K/mm3 Eos # (Auto) 0.00 L (0.04-0.36) K/mm3 Baso # (Auto) 0.01 (0.01-0.08) K/mm3 Neutrophils % (Manual) (40-60) % Band Neutrophils % (0-10) % Lymphocytes % (Manual) (20-40) % Atypical Lymphs % % Monocytes % (Manual) (2-10) % Eosinophils % (Manual) (0.7-5.8) % Basophils % (Manual) (0.1-1.2) Platelet Estimate Hypochromasia Anisocytosis Macrocytosis RBC Morph Comment ESR (0-20) mm/hr PT (9.7-12.0) SECONDS INR APTT (22-31) SECONDS Puncture Site ABG pH (7.35-7.45) ABG pCO2 (35.0-45.0) mmHg ABG pO2 (80.0-100.0) mmHg ABG HCO3 (22.0-26.0) meq/L ABG O2 Saturation (96.0-97.0) % ABG Base Excess (-2-2.0) Ald[place] Test A-a Gradient mmHg O2 Delivery Device Oxygen Flow Rate FiO2 (21.00-100.00) % Sodium 141 (136-145) mEq/L Potassium 2.4 L* (3.5-5.1) mEq/L Chloride 97 L (98-107) mEq/L Carbon Dioxide 37 H (21-32) mEq/L Anion Gap 9.4 (5-15) BUN 55 H (7-18) mg/dL Creatinine 1.5 H (0.55-1.02) mg/dL Est Cr Clr Drug Dosing 25.83 Estimated GFR (MDRD) 33 (>60) mL/min BUN/Creatinine Ratio 36.7 H (14-18) Glucose 114 (83-115) mg/dL Lactic Acid (0.4-2.0) mmol/L Calcium 9.0 (8.5-10.1) mg/dL Magnesium (1.8-2.4) mg/dl Total Bilirubin (0.2-1.0) mg/dL AST (15-37) U/L ALT (14-59) U/L Alkaline Phosphatase (46-116) U/L CK-MB (CK-2) (0-3.6) ng/ml Troponin I (0.00-0.056) ng/mL C-Reactive Protein (<1.0) mg/dL NT-Pro-B Natriuret Pep (0-450) pg/mL Total Protein (6.4-8.2) g/dl Albumin (3.4-5.0) g/dl Globulin gm/dL Albumin/Globulin Ratio (1-2) TSH 3rd Generation (0.358-3.74) uIU/mL Urine Color (Yellow) Urine Appearance (Clear) Urine pH (5.0-8.0) Ur Specific [place] (1.005-1.030) Urine Protein (Negative) Urine Glucose (UA) (Negative) Urine Ketones (Negative) Urine Occult Blood (Negative) Urine Nitrite (Negative) Urine Bilirubin (Negative) Urine Urobilinogen (0.2-1.0) Ur Leukocyte Esterase (Negative) Urine RBC (0-5) /hpf Urine WBC (0-5) /hpf Ur Squamous Epith Cells (0-5) /hpf Urine Bacteria (FEW) /hpf Urine Mucus (FEW) /hpf Blood Type Gel Antibody Screen Crossmatch 08/21/19 Range/Units 04:50 WBC (3.98-10.04) K/mm3 RBC (3.98-5.22) M/mm3 Hgb (11.2-15.7) gm/dl Hct (34.1-44.9) % MCV (79.4-94.8) fl MCH (25.6-32.2) pg MCHC (32.2-35.5) g/dl RDW Std Deviation (36.4-46.3) fL Plt Count (182-369) K/mm3 MPV (9.4-12.3) fl Neut % (Auto) (34.0-71.1) % Lymph % (Auto) (19.3-51.7) % [place] % (Auto) (4.7-12.5) % Eos % (Auto) (0.7-5.8) Baso % (Auto) (0.1-1.2) % Neut # (Auto) (1.56-6.13) K/mm3 Lymph # (Auto) (1.18-3.74) K/mm3 [place] # (Auto) (0.24-0.36) K/mm3 Eos # (Auto) (0.04-0.36) K/mm3 Baso # (Auto) (0.01-0.08) K/mm3 Neutrophils % (Manual) (40-60) % Band Neutrophils % (0-10) % Lymphocytes % (Manual) (20-40) % Atypical Lymphs % % Monocytes % (Manual) (2-10) % Eosinophils % (Manual) (0.7-5.8) % Basophils % (Manual) (0.1-1.2) Platelet Estimate Hypochromasia Anisocytosis Macrocytosis RBC Morph Comment ESR (0-20) mm/hr PT (9.7-12.0) SECONDS INR APTT (22-31) SECONDS Puncture Site ABG pH (7.35-7.45) ABG pCO2 (35.0-45.0) mmHg ABG pO2 (80.0-100.0) mmHg ABG HCO3 (22.0-26.0) meq/L ABG O2 Saturation (96.0-97.0) % ABG Base Excess (-2-2.0) Alden Test A-a Gradient mmHg O2 Delivery Device Oxygen Flow Rate FiO2 (21.00-100.00) % Sodium 140 (136-145) mEq/L Potassium 3.0 L (3.5-5.1) mEq/L Chloride 97 L (98-107) mEq/L Carbon Dioxide 36 H (21-32) mEq/L Anion Gap 10.0 (5-15) BUN 48 H (7-18) mg/dL Creatinine 1.5 H (0.55-1.02) mg/dL Est Cr Clr Drug Dosing 25.83 Estimated GFR (MDRD) 33 (>60) mL/min BUN/Creatinine Ratio 32.0 H (14-18) Glucose 112 (83-115) mg/dL Lactic Acid (0.4-2.0) mmol/L Calcium 9.3 (8.5-10.1) mg/dL Magnesium 2.0 (1.8-2.4) mg/dl Total Bilirubin (0.2-1.0) mg/dL AST (15-37) U/L ALT (14-59) U/L Alkaline Phosphatase (46-116) U/L CK-MB (CK-2) (0-3.6) ng/ml Troponin I (0.00-0.056) ng/mL C-Reactive Protein 11.7 H* (<1.0) mg/dL NT-Pro-B Natriuret Pep (0-450) pg/mL Total Protein (6.4-8.2) g/dl Albumin (3.4-5.0) g/dl Globulin gm/dL Albumin/Globulin Ratio (1-2) TSH 3rd Generation (0.358-3.74) uIU/mL Urine Color (Yellow) Urine Appearance (Clear) Urine pH (5.0-8.0) Ur Specific [place] (1.005-1.030) Urine Protein (Negative) Urine Glucose (UA) (Negative) Urine Ketones (Negative) Urine Occult Blood (Negative) Urine Nitrite (Negative) Urine Bilirubin (Negative) Urine Urobilinogen (0.2-1.0) Ur Leukocyte Esterase (Negative) Urine RBC (0-5) /hpf Urine WBC (0-5) /hpf Ur Squamous Epith Cells (0-5) /hpf Urine Bacteria (FEW) /hpf Urine Mucus (FEW) /hpf Blood Type Gel Antibody Screen Crossmatch [place] Results Last 24 Hours: Microbiology 08/20/19 10:40 Influenza Type A Antigen Screen - Final Nasal Aspirate, Unspecified NEGATIVE INFLUENZA A VIRUS AG REFERENCE RANGE: NEGATIVE Influenza Type B Antigen Screen - Final NEGATIVE INFLUENZA B VIRUS AG REFERENCE RANGE: NEGATIVE Med Orders - Current: Current Medications Acetaminophen (Tylenol) 650 mg PO Q4H PRN PRN Reason: Pain (Mild 1-3)/fever Albuterol/Ipratropium (Duoneb 3.0-0.5 Mg/3 Ml) 3 ml NEB Q4H PRN PRN Reason: Shortness Of Breath/wheezing Hydromorphone HCl (Dilaudid) 0.25 mg IVPUSH Q2H PRN PRN Reason: Pain (severe 7-10) Norepinephrine Bitartrate 4 mg (/ Dextrose/Water) 250 mls @ 7.5 mls/hr IV TITRATE [facility]; Protocol Last Titration: 08/21/19 02:46 Dose: 4 mcg/min, 15 mls/hr Vancomycin HCl 1 gm/ Sodium (Chloride) 250 mls @ 250 mls/hr IV Q24H [facility] Last Admin: 08/21/19 01:32 Dose: 250 mls/hr Potassium Chloride 10 meq/ (Premix) 100 mls @ 100 mls/hr IV Q1H [facility] Stop: 08/21/19 07:29 Last Admin: 08/21/19 06:48 Dose: 100 mls/hr Levofloxacin/Dextrose 750 mg/ (Premix) 150 mls @ 100 mls/hr IV Q24H [facility] Ondansetron HCl (Zofran) 4 mg IV Q6H PRN PRN Reason: Nausea/Vomiting Pantoprazole Sodium (Protonix Iv) 40 mg IV Q12H [facility] Last Admin: 08/21/19 02:02 Dose: 40 mg Sodium Chloride (Saline Flush) 10 ml FLUSH ASDIRECTED PRN PRN Reason: Keep Vein Open Last Admin: 08/20/19 12:52 Dose: 10 ml Vancomycin HCl (Pharmacy To Dose - Vancomycin) 1 dose .XX ASDIRECTED [facility] Discontinued Medications Furosemide (Lasix) 60 mg IVPUSH NOW ONE Stop: 08/20/19 09:05 Last Admin: 08/20/19 11:04 Dose: 60 mg Furosemide (Lasix) 60 mg IVPUSH NOW ONE Stop: 08/20/19 12:26 Last Admin: 08/20/19 14:37 Dose: 60 mg Furosemide (Lasix) Confirm Administered Dose 80 mg .ROUTE .STK-MED ONE Stop: 08/20/19 14:34 Last Admin: 08/20/19 14:37 Dose: Not Given Levofloxacin/Dextrose 750 mg/ (Premix) 150 mls @ 100 mls/hr IV ONETIME ONE Stop: 08/20/19 12:02 Last Admin: 08/20/19 11:18 Dose: 100 mls/hr Sodium Chloride (Normal Saline) 250 mls @ 25 mls/hr IV ASDIRECTED [facility] Last Admin: 08/20/19 11:30 Dose: 25 mls/hr Norepinephrine Bitartrate (Levophed) Confirm Administered Dose 4 mg .ROUTE .STK- MED ONE Stop: 08/20/19 23:40 Last Admin: 08/21/19 00:01 Dose: Not Given - Exam General: Alert, No Acute Distress HEENT: Pupils Equal, Pupils Reactive Neck: Supple Lungs: Normal Respiratory Effort, Decreased Breath Sounds Cardiovascular: Regular Rate, Regular Rhythm GI/Abdominal Exam: Normal Bowel Sounds, Soft, Non-Tender, No Organomegaly, No Abnormal Bruit, No Mass (Female) Exam: Other (mccarthy catheter) Back Exam: Other (deferred) Extremities: Normal Inspection, Normal Range of Motion, Non-Tender Peripheral Pulses: 2+: Dorsalis Pedis (L), Dorsalis Pedis (R) Skin: Warm, Dry, Intact Neurological: No New Focal Deficit (not appropraite), Normal Gait Psy/Mental Status: Alert, Normal Affect, Normal Mood Sepsis Event Note - Evaluation Sepsis Screening Result: Possible Sepsis Risk - Focused Exam Vital Signs: Vital Signs Temp Pulse Resp BP Pulse Ox Pulse Ox 08/21/19 06:06 95 08/21/19 06:00 30 H 119/55 L 08/21/19 05:30 28 H 119/51 L 08/21/19 05:00 23 H 123/54 L 08/21/19 04:30 28 H 119/53 L 08/21/19 04:00 37.0 C 31 H 128/53 L 95 08/21/19 03:30 26 H 113/58 L 08/21/19 03:15 26 H 121/52 L 08/21/19 03:00 25 H 117/58 L 08/21/19 02:45 22 H 101/48 L 08/21/19 02:30 25 H 91/47 L 08/21/19 02:15 21 H 113/50 L 08/21/19 02:00 24 H 110/46 L 08/21/19 01:30 60 26 H 115/49 L 08/21/19 01:00 23 H 115/51 L 08/21/19 00:30 17 114/79 08/21/19 00:00 36.7 C 29 H 115/51 L 94 L 08/20/19 22:09 91 L 08/20/19 20:00 37.1 C 18 106/54 L 93 L 08/20/19 19:54 92 L Date Exam was Performed: 08/22/19 Time Exam was Performed: 13:17 - Problem List Review Problem List Initiated/Reviewed/Updated: Yes - My Orders Last 24 Hours: My Active Orders 08/20/19 14:01 Height and Weight [RC] 04 Up With Assistance [RC] . DIRECTED VTE/DVT Education [RC] Acetaminophen [Tylenol] 650 mg PO Q4H PRN Albuterol/Ipratropium [DuoNeb 3.0-0.5 MG/3 ML] 3 ml NEB Q4H PRN HYDROmorphone [Dilaudid] 0.25 mg IVPUSH Q2H PRN Ondansetron [Zofran] 4 mg IV Q6H PRN 08/20/19 14:02 Cardiac Monitoring [RC] . DIRECTED Intake and Output [RC] Q2HR Pulse Oximetry [RC] .PRN Sequential Compression Device [OM.PC] Per Unit Routine 08/20/19 14:03 Antiembolic Devices [RC] 09,21 08/20/19 14:04 RT Aerosol Therapy [RC] . 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 [CONS] Routine OT Evaluation and Treatment [CONS] Routine PT Evaluation and Treatment [CONS] Routine Respiratory Care Assess and Treatment [CONS] Routine 08/20/19 14:07 Consult to Ethics [Consult to Spiritual Care] [CONS] Routine 08/20/19 15:00 Pantoprazole [ProTONIX IV] 40 mg IV Q12H 08/20/19 17:18 Resuscitation Status Routine 08/20/19 17:47 Guaiac [OCCULT BLOOD DIAGNOSTIC] [OP] Routine 08/20/19 23:45 Norepinephrine [Levophed] 4 mg Dextrose 5% in Water 246 ml IV TITRATE 08/20/19 Lunch 2 Gram Sodium Diet [DIET] Heart Healthy Diet [DIET] 08/21/19 00:32 EKG 12 Lead [EK] Routine 08/21/19 01:00 Vancomycin [Vancocin] 1 gm Sodium Chloride 0.9% [Normal Saline (AdvBag)] 250 ml IV Q24H 08/21/19 01:30 Potassium Chloride [KCl 10 MEQ in Water 100 ML] 10 meq Premix Bag 1 bag IV Q1H 08/21/19 04:50 CBC WITH AUTO DIFF [HEME] AM 08/21/19 06:50 INR,PT,PROTHROMBIN TIME [COAG] Routine 08/21/19 07:00 Levofloxacin/Dextrose 5%-Water [Levaquin in D5W 750 MG/150 ML] 750 mg Premix Bag 1 bag IV Q24H 08/21/19 09:00 Pharmacy to Dose - Vancomycin 1 dose .XX ASDIRECTED 08/22/19 05:11 BASIC METABOLIC PANEL,BMP [CHEM] AM C-REACTIVE PROTEIN [CHEM] AM CBC WITH AUTO DIFF [HEME] AM INR,PT,PROTHROMBIN TIME [COAG] AM MAGNESIUM [CHEM] AM 08/23/19 05:11 BASIC METABOLIC PANEL,BMP [CHEM] AM C-REACTIVE PROTEIN [CHEM] AM CBC WITH AUTO DIFF [HEME] AM INR,PT,PROTHROMBIN TIME [COAG] AM MAGNESIUM [CHEM] AM 08/24/19 00:30 VANCOMYCIN TROUGH [CHEM] Timed 08/24/19 05:11 BASIC METABOLIC PANEL,BMP [CHEM] AM CBC WITH AUTO DIFF [HEME] AM INR,PT,PROTHROMBIN TIME [COAG] AM MAGNESIUM [CHEM] AM 08/25/19 05:11 BASIC METABOLIC PANEL,BMP [CHEM] AM CBC WITH AUTO DIFF [HEME] AM INR,PT,PROTHROMBIN TIME [COAG] AM MAGNESIUM [CHEM] AM 08/26/19 05:11 INR,PT,PROTHROMBIN TIME [COAG] AM - Plan Plan:: Acute: * Sepsis with Hypoension2/2 PNA, Present on Admission. Now on levophed gtt which was started last night * CAP/PNA. Right Lower Lobe noted on CXR. Serial CXR as indicated, Sputum Cx and RT to assess and treat as indicated. Repeat CXR this morning * Leukocytosis with WBC of 12.04. 2/2 Above. Treat underlying cause * Small B/L Pleural Effusions with Mild Pulmonary Vascular Congestion * Respiratory Failure Hypoxic and Hypercapneic. 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 Hgb of 7.1--> 9.4 grams S/p 2 units of PRBCs transfusion. * Thrombocytosis with Platelet # of 530-->463. Will continue monitor * CKD. BUN of 60 and Cr of 1.8. At baseline. Monitor Is/Os * S/p Metabolic Acidosis. LA of 2.1-->now 1.3 due to Sepsis * S/p Hyperglycemia. BS of 179. Carries no diabetes or glucose intolerance. She has been NPO. * AMS 2/2 Metabolic Encephalopathy. Has baseline Dementia. Aspiration Precautions. She is a bit more alert than last night. * HF with Preserved EF of 50%. Acute on chronic due to valvular Disfunction. CXR shows pleural effusion and pulmonary vascular congestion. 2D echo today * Elevated proBNP level of 5838. Carries a hx/o HF with Preserved EF of 50% with Severe Mitral Annular Calcification, Mod-Severe TV Regurgitation and Mild- Mod MV regurgitation 01/31/2018 Chronic: Impaired Vision, Hx/o Arrhythmia, HTN, HLD, SSS S/p Pacemaker Placement , HF with Preserved EF 50% 2018, HVR, Hx/o Pleural Effusion S/p Thoracentesis, PUD, OA/DJD, CKD Stage 3, Alzheimer's Disease, Hypothyroidism, Respiratory Failure on 4L N Chronically, MDS, Anxiety and Depression. Plan: Continue Sepsis treatment. Titrate to come off pressor gtt. IV Antibiotic : Levaquin and Vancomycin. PO once fully alert and awake. PRN BIPAP. Aspiration precautions. Routine AM Labs. DVT/Stroke Prophylaxis. Hold Warfarin due to Anemia and Possible GI Bleed. Code status is DNR. Prognosis is guarded-poor.
--- NOTE | 2019-08-21 12:52 | CR ---
Chest: Portable view of the chest was obtained. Comparison: Prior chest x-ray of 08/20/19. Increased right basilar density is seen. Findings are fairly stable from previous exam. Left lung is clear. Minimal blunting of the lateral costophrenic angles are seen possibly due to minimal pleural effusions. Pulmonary vessels do not appear as prominent as on previous study. Heart size and mediastinum are unchanged. Previous sternotomy and prosthetic heart valve are noted. Pacemaker is noted. Impression: 1. Continued increased density within the right lung base raise the possibility of right lower lobe pneumonia. 2. Equivocal small bilateral pleural effusions. 3. Pulmonary vessels do not appear as prominent as seen on previous exam. Diagnostic code #3 This report was dictated in [place] Standard Time
[2019-08-21] MEDS: Albuterol/Ipratropium 3.0-0.5 MG/3 ML Neb Soln NEB PRN (23:02)
[2019-08-22] MEDS: Pantoprazole 40 MG Vial IV SCH (03:59)
[2019-08-22] MEDS ORDERED: Potassium Chloride 10 MEQ Tab.ER PO ONE (07:38)
[2019-08-22] MEDS: Potassium Chloride 10 MEQ in Premix Bag 1 BAG IV SCH ×4 (09:26→12:38)
[2019-08-22] MEDS ORDERED: Magnesium Oxide 400 MG Tab PO ONE (11:01)
[2019-08-22] MEDS: Levofloxacin/Dextrose 5%-Water 750 MG in Premix Bag 1 BAG IV SCH (12:03)
[2019-08-22] MEDS ORDERED: Furosemide 40 MG/4 ML VIAL IVPUSH ONE (14:20)
--- NOTE | 2019-08-22 18:22 | PCM.PN ---
- General Info Date of Service: 08/22/19 Subjective Update: BiPAP overnight Slept ok - Patient Data Vitals - Most Recent: Last Vital Signs Temp 99 F 08/22/19 16:00 Pulse 64 08/22/19 03:56 Resp 24 H 08/22/19 16:00 BP 126/51 L 08/22/19 16:00 Pulse Ox 93 L 08/22/19 16:00 Weight - Most Recent: 68.266 kg - Exam Quality Assessment: Supplemental Oxygen, Urine Catheter General: Alert, Oriented, Mild Distress HEENT: Pupils Equal, Pupils Reactive. No: Mucous Membr. Moist/[place] Neck: Supple, Trachea Midline, JVD Lungs: Decreased Breath Sounds, Crackles, Wheezing. No: Rales, Rhonchi, Rub, Stridor Cardiovascular: Regular Rate, Regular Rhythm. No: Murmurs, Gallops, Rubs GI/Abdominal Exam: Normal Bowel Sounds, Soft, Non-Tender. No: Distended, Guarding, Rebound Back Exam: Normal Inspection. No: CVA Tenderness (L), CVA Tenderness (R), Paraspinal Tenderness, Vertebral Tenderness Extremities: Normal Inspection, Non-Tender, No Pedal Edema, Slow Capillary Refill Skin: Warm, Dry Neurological: No New Focal Deficit Psy/Mental Status: Alert Sepsis Event Note - Evaluation Sepsis Screening Result: Possible Sepsis Risk - Focused Exam Vital Signs: Vital Signs Temp Resp BP Pulse Ox Pulse Ox 08/22/19 16:00 99 F 24 H 126/51 L 93 L 08/22/19 11:54 98.3 F 22 H 123/72 98 08/22/19 11:02 100 08/22/19 08:55 93 L 08/22/19 08:00 99.1 F 32 H 119/57 L 94 L Date Exam was Performed: 08/27/19 Time Exam was Performed: 09:22 - Problem List & Annotations (1) Septic shock SNOMED Code(s): 46212509 Code(s): A41.9 - SEPSIS, UNSPECIFIED ORGANISM; R65.21 - SEVERE SEPSIS WITH SEPTIC SHOCK Status: Acute Current Visit: Yes (2) Community acquired bacterial pneumonia SNOMED Code(s): 121391070, 530491095 Code(s): J15.9 - UNSPECIFIED BACTERIAL PNEUMONIA Status: Acute Current Visit: Yes (3) Aspiration pneumonia SNOMED Code(s): 884920707 Code(s): J69.0 - PNEUMONITIS DUE TO INHALATION OF FOOD AND VOMIT Status: Acute Current Visit: Yes (4) Pleural effusion SNOMED Code(s): 82849272 Code(s): J90 - PLEURAL EFFUSION, NOT ELSEWHERE CLASSIFIED Status: Acute Current Visit: Yes (5) Acute on chronic respiratory failure with hypoxia and hypercapnia SNOMED Code(s): 24963610794095 Code(s): J96.21 - ACUTE AND CHRONIC RESPIRATORY FAILURE WITH HYPOXIA; J96.22 - ACUTE AND CHRONIC RESPIRATORY FAILURE WITH HYPERCAPNIA Status: Acute Current Visit: Yes (6) Thrombocytosis SNOMED Code(s): 0311439 Code(s): D47.3 - ESSENTIAL (HEMORRHAGIC) THROMBOCYTHEMIA Status: Acute Current Visit: Yes (7) Leukocytosis SNOMED Code(s): 202151960, 143974484 Code(s): D72.829 - ELEVATED WHITE BLOOD CELL COUNT, UNSPECIFIED Status: Acute Current Visit: Yes (8) Hypertension SNOMED Code(s): 41718512 Code(s): I10 - ESSENTIAL (PRIMARY) HYPERTENSION Status: Acute Current Visit: Yes (9) Dyslipidemia SNOMED Code(s): 652927878 Code(s): E78.5 - HYPERLIPIDEMIA, UNSPECIFIED Status: Acute Current Visit : Yes (10) Sick sinus syndrome SNOMED Code(s): 02454450 Code(s): I49.5 - SICK SINUS SYNDROME Status: Acute Current Visit: Yes (11) Pacemaker SNOMED Code(s): 325673010 Code(s): Z95.0 - PRESENCE OF CARDIAC PACEMAKER Status: Acute Current Visit: Yes (12) History of mechanical aortic valve replacement SNOMED Code(s): 946689046286140, 193866609, 443838008454756 Code(s): Z95.2 - PRESENCE OF PROSTHETIC HEART VALVE Status: Acute Current Visit: Yes (13) Alzheimer's dementia SNOMED Code(s): 37339303 Code(s): G30.9 - ALZHEIMER'S DISEASE, UNSPECIFIED; F02.80 - DEMENTIA IN OTH DISEASES CLASSD ELSWHR W/O BEHAVRL DISTURB Status: Acute Current Visit: Yes (14) Anticoagulated on Coumadin SNOMED Code(s): 38541901 Code(s): Z79.01 - FDC (CURRENT) USE OF ANTICOAGULANTS Status: Acute Current Visit: Yes (15) Chronic atrial fibrillation SNOMED Code(s): 249171168 Code(s): I48.20 - CHRONIC ATRIAL FIBRILLATION, UNSPECIFIED Status: Acute Current Visit: Yes (16) Anemia SNOMED Code(s): 598862705 Code(s): D64.9 - ANEMIA, UNSPECIFIED Status: Chronic Priority: High Current Visit: Yes Qualifiers: Anemia type: due to chronic kidney disease (17) Bilateral pleural effusion SNOMED Code(s): 477334925 Code(s): J90 - PLEURAL EFFUSION, NOT ELSEWHERE CLASSIFIED Status: Acute Current Visit: No (18) Chronic renal insufficiency, stage IV (severe) SNOMED Code(s): 094534267 Code(s): N18.4 - CHRONIC KIDNEY DISEASE, STAGE 4 (SEVERE) Status: Acute Current Visit: No (19) Dementia SNOMED Code(s): 64216219 Code(s): F03.90 - UNSPECIFIED DEMENTIA WITHOUT BEHAVIORAL DISTURBANCE Status: Acute Current Visit: No (20) Depression with anxiety SNOMED Code(s): 304203672 Code(s): F41.8 - OTHER SPECIFIED ANXIETY DISORDERS Status: Acute Current Visit: No (21) Hypotension SNOMED Code(s): 18464117 Code(s): I95.9 - HYPOTENSION, UNSPECIFIED Status: Acute Priority: High Current Visit: No Qualifiers: Hypotension type: unspecified hypotension type Qualified Code(s): I95.9 - Hypotension, unspecified (22) Myelodysplastic syndrome SNOMED Code(s): 281429126 Code(s): D46.9 - MYELODYSPLASTIC SYNDROME, UNSPECIFIED Status: Acute Current Visit: No (23) Severe aortic valve stenosis SNOMED Code(s): 73046513 Code(s): I35.0 - NONRHEUMATIC AORTIC (VALVE) STENOSIS Status: Acute Current Visit: No (24) Acute exacerbation of congestive heart failure SNOMED Code(s): 252119549, 30145956342509 Code(s): I50.9 - HEART FAILURE, UNSPECIFIED Status: Chronic Priority: Medium Current Visit: No Qualifiers: Heart failure type: unspecified Qualified Code(s): I50.9 - Heart failure, unspecified (25) Sepsis SNOMED Code(s): 45846831 Code(s): A41.9 - SEPSIS, UNSPECIFIED ORGANISM Status: Acute Current Visit : Yes (26) Dysphagia SNOMED Code(s): 66266889, 216280364 Code(s): R13.10 - DYSPHAGIA, UNSPECIFIED Status: Acute Current Visit: Yes - Problem List Review Problem List Initiated/Reviewed/Updated: Yes - Plan Plan:: Septic shock Community acquired bacterial pneumonia vs Aspiration pneumonia BL pleural effusion Acute on chronic respiratory failure with hypoxia and hypercapnia, basal requirement O2 4L Thrombocytosis / Leukocytosis Dysphagia Worsening weakness and shortness of breath prior to admission Required increase of O2 via NC to 6L with minimal improvement in O2 sats Found to have Right sided infiltrate on CXR Hypotensive overnight requiring levophed drip Required BiPAP placement PLAN - Continue O2 supplementation - Scheduled nebs - RT assess and treat - Wean off levophed as tolerate - F/u cultures and blood tests - Trend temperature - Levaquin and Vancomycin - Keep NPO - Speech therapy evaluation Acute on chronic renal insufficiency, stage IV (severe) GFR on admission 27--> 43 today PLAN - Avoid nephrotoxic agents - Renally dosed medications - Monitor I/Os - Keep balance as neutral as possible Atrial fibrillation Anticoagulated on Coumadin History of mechanical aortic valve replacement Sick sinus syndrome s/p Pacemaker Currently rate controlled HR trend 60-64 PLAN - Continue to hold warfarin - Monitor VS Hypertension MAP trend 61-90 PLAN - Hold BP meds for now Myelodysplastic syndrome Anemia Hb on admission 7.1 Transfused 2u PRBC PLAN - Monitor for bleeding - FOBT Alzheimer's dementia Depression with anxiety No acute delirium PLAN - Let me sleep protocol as much as possible PROPHYLAXIS DVT-SCDs GI-not indicated CODE STATUS: DNR/DNI DISPOSITION: Will remain in ICU for now.
[2019-08-22] MEDS: QUEtiapine 25 MG Tab PO SCH (21:28)
[2019-08-23] MEDS: Levothyroxine 75 MCG Tab PO SCH (07:21)
[2019-08-23] MEDS ORDERED: Diltiazem 120 MG Cap.CD PO SCH (09:00)
[2019-08-23] MEDS: Sertraline 50 MG Tab PO SCH (11:34)
[2019-08-23] MEDS: QUEtiapine 25 MG Tab PO SCH (20:55)
[2019-08-23] MEDS ORDERED: QUEtiapine 25 MG Tab PO SCH (21:00)
[2019-08-24] MEDS: Levothyroxine 75 MCG Tab PO SCH (06:15)
[2019-08-24] MEDS: Sertraline 50 MG Tab PO SCH (11:51)
[2019-08-24] MEDS: Levofloxacin/Dextrose 5%-Water 750 MG in Premix Bag 1 BAG IV SCH (12:28)
[2019-08-24] MEDS: QUEtiapine 25 MG Tab PO SCH (21:46)
[2019-08-25] MEDS: Albuterol/Ipratropium 3.0-0.5 MG/3 ML Neb Soln NEB PRN ×2 (02:30→20:13)
[2019-08-25] MEDS: Levothyroxine 75 MCG Tab PO SCH (06:00)
--- NOTE | 2019-08-25 09:06 | CR ---
Chest: Portable view of the chest was obtained. Comparison: Prior chest x-ray of 08/21/19. Findings: Continuing parenchymal density is seen within the right lung base. Left lung shows slight left basilar atelectasis. Lungs otherwise are felt to be clear. Heart size appears stable. Upper mediastinum is stable. Prosthetic heart valve is noted. Previous sternotomy is noted. Pacemaker is present. Impression: 1. No change in the appearance of the chest from previous exam. 2. No new abnormality is appreciated. Diagnostic code #3 This report was dictated in [place] Standard Time
[2019-08-25] MEDS: Sertraline 50 MG Tab PO SCH (11:46)
[2019-08-25] MEDS: Enoxaparin 80 MG/0.8 ML Syringe SUBCUT SCH ×2 (11:48→22:00)
[2019-08-25] MEDS: QUEtiapine 25 MG Tab PO SCH (21:57)
[2019-08-26] MEDS: Albuterol/Ipratropium 3.0-0.5 MG/3 ML Neb Soln NEB PRN ×2 (03:50→09:18)
[2019-08-26] MEDS: Levothyroxine 75 MCG Tab PO SCH (05:42)
--- NOTE | 2019-08-26 08:50 | PCM.PN ---
- General Info Date of Service: 08/26/19 Subjective Update: Slept ok Tolerating diet Walking with PT in room No BiPAP since 08/25 at 3AM - Patient Data Vitals - Most Recent: Last Vital Signs Temp 98.3 F 08/26/19 07:44 Pulse 68 08/25/19 04:00 Resp 29 H 08/26/19 07:44 BP 130/55 L 08/26/19 07:44 Pulse Ox 88 L 08/26/19 07:44 Weight - Most Recent: 65.998 kg - Exam Physical Findings Comments:: Quality Assessment: Supplemental Oxygen, Urine Catheter General: Alert, Oriented, Cooperative, No Acute Distress HEENT: Pupils Equal, Pupils Reactive, Mucous Membr. Moist/[place] Neck: Supple, Trachea Midline, No JVD, No Thyromegaly Lungs: Interval improvement in breath Sounds, Crackles No: Rales, Rhonchi, Wheezing. Cardiovascular: Regular Rate, Regular Rhythm. No: Murmurs, Gallops, Rubs GI/Abdominal Exam: Normal Bowel Sounds, Soft, Non-Tender, No Organomegaly. No: Distended, Guarding, Rigid, Rebound Back Exam: Normal Inspection Extremities: Normal Inspection, Slow Capillary Refill Sepsis Event Note - Evaluation Sepsis Screening Result: No Definite Risk - Focused Exam Vital Signs: Vital Signs Temp Resp BP Pulse Ox Pulse Ox 08/26/19 07:44 98.3 F 29 H 130/55 L 88 L 08/26/19 03:58 98.5 F 28 H 91 L 08/26/19 03:53 90 L 08/26/19 00:00 98.6 F 23 H 118/54 L 95 Date Exam was Performed: 08/27/19 Time Exam was Performed: 12:16 - Problem List & Annotations (1) Acute exacerbation of congestive heart failure SNOMED Code(s): 299225962, 76290284811544 Code(s): I50.9 - HEART FAILURE, UNSPECIFIED Status: Acute Current Visit: Yes Qualifiers: Heart failure type: combined systolic and diastolic Qualified Code(s): I50.43 - Acute on chronic combined systolic (congestive) and diastolic ( congestive) heart failure (2) Acute on chronic respiratory failure with hypoxia and hypercapnia SNOMED Code(s): 97449806189930 Code(s): J96.21 - ACUTE AND CHRONIC RESPIRATORY FAILURE WITH HYPOXIA; J96.22 - ACUTE AND CHRONIC RESPIRATORY FAILURE WITH HYPERCAPNIA Status: Acute Current Visit: Yes (3) Alzheimer's dementia SNOMED Code(s): 70199767 Code(s): G30.9 - ALZHEIMER'S DISEASE, UNSPECIFIED; F02.80 - DEMENTIA IN OTH DISEASES CLASSD ELSWHR W/O BEHAVRL DISTURB Status: Acute Current Visit: Yes (4) Anticoagulated on Coumadin SNOMED Code(s): 17476380 Code(s): Z79.01 - RECORDS AND TAPE RECORDINGS ENGINEER (CURRENT) USE OF ANTICOAGULANTS Status: Acute Current Visit: Yes (5) Aspiration pneumonia SNOMED Code(s): 911290401 Code(s): J69.0 - PNEUMONITIS DUE TO INHALATION OF FOOD AND VOMIT Status: Acute Current Visit: Yes (6) Chronic atrial fibrillation SNOMED Code(s): 823582097 Code(s): I48.20 - CHRONIC ATRIAL FIBRILLATION, UNSPECIFIED Status: Acute Current Visit: Yes (7) Community acquired bacterial pneumonia SNOMED Code(s): 095393701, 473133103 Code(s): J15.9 - UNSPECIFIED BACTERIAL PNEUMONIA Status: Acute Current Visit: Yes (8) Dyslipidemia SNOMED Code(s): 415565485 Code(s): E78.5 - HYPERLIPIDEMIA, UNSPECIFIED Status: Acute Current Visit : Yes (9) Dysphagia SNOMED Code(s): 02284101, 495438539 Code(s): R13.10 - DYSPHAGIA, UNSPECIFIED Status: Acute Current Visit: Yes (10) History of mechanical aortic valve replacement SNOMED Code(s): 508243680672680, 876237635, 365233976053217 Code(s): Z95.2 - PRESENCE OF PROSTHETIC HEART VALVE Status: Acute Current Visit: Yes (11) Hypertension SNOMED Code(s): 92858631 Code(s): I10 - ESSENTIAL (PRIMARY) HYPERTENSION Status: Acute Current Visit: Yes (12) Leukocytosis SNOMED Code(s): 288493373, 403667794 Code(s): D72.829 - ELEVATED WHITE BLOOD CELL COUNT, UNSPECIFIED Status: Acute Current Visit: Yes (13) Pacemaker SNOMED Code(s): 091868196 Code(s): Z95.0 - PRESENCE OF CARDIAC PACEMAKER Status: Acute Current Visit: Yes (14) Pleural effusion SNOMED Code(s): 60960344 Code(s): J90 - PLEURAL EFFUSION, NOT ELSEWHERE CLASSIFIED Status: Acute Current Visit: Yes (15) Pneumonia SNOMED Code(s): 821556195 Code(s): J18.9 - PNEUMONIA, UNSPECIFIED ORGANISM Status: Acute Current Visit: Yes (16) Respiratory failure with hypercapnia SNOMED Code(s): 865825442 Code(s): J96.92 - RESPIRATORY FAILURE, UNSPECIFIED WITH HYPERCAPNIA Status : Acute Current Visit: Yes Qualifiers: Chronicity: acute on chronic Qualified Code(s): J96.22 - Acute and chronic respiratory failure with hypercapnia (17) Sepsis SNOMED Code(s): 79059179 Code(s): A41.9 - SEPSIS, UNSPECIFIED ORGANISM Status: Acute Current Visit : Yes (18) Septic shock SNOMED Code(s): 48536349 Code(s): A41.9 - SEPSIS, UNSPECIFIED ORGANISM; R65.21 - SEVERE SEPSIS WITH SEPTIC SHOCK Status: Acute Current Visit: Yes (19) Sick sinus syndrome SNOMED Code(s): 97218191 Code(s): I49.5 - SICK SINUS SYNDROME Status: Acute Current Visit: Yes (20) Thrombocytosis SNOMED Code(s): 6953610 Code(s): D47.3 - ESSENTIAL (HEMORRHAGIC) THROMBOCYTHEMIA Status: Acute Current Visit: Yes (21) Anemia SNOMED Code(s): 819889195 Code(s): D64.9 - ANEMIA, UNSPECIFIED Status: Chronic Priority: High Current Visit: Yes Qualifiers: Anemia type: due to chronic kidney disease (22) Atrial fibrillation and flutter SNOMED Code(s): 130881246 Code(s): I48.91 - UNSPECIFIED ATRIAL FIBRILLATION; I48.92 - UNSPECIFIED ATRIAL FLUTTER Status: Acute Priority: High Current Visit: No (23) Bilateral pleural effusion SNOMED Code(s): 325127316 Code(s): J90 - PLEURAL EFFUSION, NOT ELSEWHERE CLASSIFIED Status: Acute Current Visit: No (24) CHF (congestive heart failure) SNOMED Code(s): 94699075 Code(s): I50.9 - HEART FAILURE, UNSPECIFIED Status: Acute Current Visit: No (25) Chronic renal insufficiency, stage IV (severe) SNOMED Code(s): 883579420 Code(s): N18.4 - CHRONIC KIDNEY DISEASE, STAGE 4 (SEVERE) Status: Acute Current Visit: No (26) Dementia SNOMED Code(s): 23468538 Code(s): F03.90 - UNSPECIFIED DEMENTIA WITHOUT BEHAVIORAL DISTURBANCE Status: Acute Current Visit: No (27) Depression with anxiety SNOMED Code(s): 667794430 Code(s): F41.8 - OTHER SPECIFIED ANXIETY DISORDERS Status: Acute Current Visit: No (28) Myelodysplastic syndrome SNOMED Code(s): 095336531 Code(s): D46.9 - MYELODYSPLASTIC SYNDROME, UNSPECIFIED Status: Acute Current Visit: No - Problem List Review Problem List Initiated/Reviewed/Updated: Yes - Plan Plan:: BL pleural effusion Acute on chronic respiratory failure with hypoxia and hypercapnia, basal requirement O2 4L Thrombocytosis / Leukocytosis Dysphagia Worsening weakness and shortness of breath prior to admission --> increased )2 requirements from 4 to 6 L NC--> Placed on BiPAP DOA--> off BiPAP now Right lung infiltrate with concern for aspiration Needed to be placed back on bipap 08/24 --> off since 3AM 08/25 PLAN - Continue O2 supplementation - Scheduled nebs - RT assess and treat - Trend temperature - Diet as per speech therapy recommendations Acute on chronic renal insufficiency, stage IV (severe) GFR on admission 27--> 48 today PLAN - Avoid nephrotoxic agents - Renally dosed medications - Monitor I/Os - Keep balance as neutral as possible Atrial fibrillation Anticoagulated on Coumadin History of mechanical aortic valve replacement Sick sinus syndrome s/p Pacemaker Currently rate controlled HR trend 60-64 PLAN - Restart warfarin - Start lovenox for bridging - Monitor VS Hypertension MAP trend 69-80 PLAN - Hold BP meds for now Myelodysplastic syndrome Anemia Hb stable PLAN - Monitor for bleeding Alzheimer's dementia Depression with anxiety No acute delirium PLAN - Let me sleep protocol as much as possible Septic shock on admission, resolved Sepsis on admission , resolved Hypokalemia, resolved PROPHYLAXIS DVT-Lovenox bridging to warfarin GI-not indicated CODE STATUS: DNR/DNI DISPOSITION: Off BIPAP but still very week and currently bridging to warfarin currently. Coordination of discharge by CM and SS PT/OT recommending SNF
--- NOTE | 2019-08-26 08:50 | PCM.PN ---
- General Info Date of Service: 08/24/19 Subjective Update: Had episode of hypoxemia at 3AM, placed on BIPAP Currently on BiPAP and sleeping Tolerating diet - Patient Data Vitals - Most Recent: Last Vital Signs Temp 98.3 F 08/26/19 07:44 Pulse 68 08/25/19 04:00 Resp 29 H 08/26/19 07:44 BP 130/55 L 08/26/19 07:44 Pulse Ox 88 L 08/26/19 07:44 Weight - Most Recent: 65.998 kg - Exam Quality Assessment: Supplemental Oxygen, Urine Catheter General: Alert, Oriented, Cooperative, No Acute Distress HEENT: Pupils Equal, Pupils Reactive, Mucous Membr. Moist/[place] Neck: Supple, Trachea Midline, No JVD, No Thyromegaly Lungs: Decreased Breath Sounds, Crackles, Wheezing. No: Rales, Rhonchi Cardiovascular: Regular Rate, Regular Rhythm. No: Murmurs, Gallops, Rubs GI/Abdominal Exam: Normal Bowel Sounds, Soft, Non-Tender, No Organomegaly. No: Distended, Guarding, Rigid, Rebound Back Exam: Normal Inspection Extremities: Normal Inspection, Slow Capillary Refill Sepsis Event Note - Evaluation Sepsis Screening Result: No Definite Risk - Focused Exam Vital Signs: Vital Signs Temp Resp BP Pulse Ox Pulse Ox 08/26/19 07:44 98.3 F 29 H 130/55 L 88 L 08/26/19 03:58 98.5 F 28 H 91 L 08/26/19 03:53 90 L 08/26/19 00:00 98.6 F 23 H 118/54 L 95 Date Exam was Performed: 08/27/19 Time Exam was Performed: 11:37 - Problem List & Annotations (1) Acute exacerbation of congestive heart failure SNOMED Code(s): 901852383, 77828344942905 Code(s): I50.9 - HEART FAILURE, UNSPECIFIED Status: Acute Current Visit: Yes Qualifiers: Heart failure type: combined systolic and diastolic Qualified Code(s): I50.43 - Acute on chronic combined systolic (congestive) and diastolic ( congestive) heart failure (2) Acute on chronic respiratory failure with hypoxia and hypercapnia SNOMED Code(s): 50756384235377 Code(s): J96.21 - ACUTE AND CHRONIC RESPIRATORY FAILURE WITH HYPOXIA; J96.22 - ACUTE AND CHRONIC RESPIRATORY FAILURE WITH HYPERCAPNIA Status: Acute Current Visit: Yes (3) Alzheimer's dementia SNOMED Code(s): 24254403 Code(s): G30.9 - ALZHEIMER'S DISEASE, UNSPECIFIED; F02.80 - DEMENTIA IN OTH DISEASES CLASSD ELSWHR W/O BEHAVRL DISTURB Status: Acute Current Visit: Yes (4) Anticoagulated on Coumadin SNOMED Code(s): 11796615 Code(s): Z79.01 - WEL[employer] ATTENDANT (CURRENT) USE OF ANTICOAGULANTS Status: Acute Current Visit: Yes (5) Aspiration pneumonia SNOMED Code(s): 910587631 Code(s): J69.0 - PNEUMONITIS DUE TO INHALATION OF FOOD AND VOMIT Status: Acute Current Visit: Yes (6) Chronic atrial fibrillation SNOMED Code(s): 068235768 Code(s): I48.20 - CHRONIC ATRIAL FIBRILLATION, UNSPECIFIED Status: Acute Current Visit: Yes (7) Community acquired bacterial pneumonia SNOMED Code(s): 149228446, 794943888 Code(s): J15.9 - UNSPECIFIED BACTERIAL PNEUMONIA Status: Acute Current Visit: Yes (8) Dyslipidemia SNOMED Code(s): 587463205 Code(s): E78.5 - HYPERLIPIDEMIA, UNSPECIFIED Status: Acute Current Visit : Yes (9) Dysphagia SNOMED Code(s): 49826441, 256610972 Code(s): R13.10 - DYSPHAGIA, UNSPECIFIED Status: Acute Current Visit: Yes (10) History of mechanical aortic valve replacement SNOMED Code(s): 585199249203041, 174509388, 689103823703542 Code(s): Z95.2 - PRESENCE OF PROSTHETIC HEART VALVE Status: Acute Current Visit: Yes (11) Hypertension SNOMED Code(s): 85279670 Code(s): I10 - ESSENTIAL (PRIMARY) HYPERTENSION Status: Acute Current Visit: Yes (12) Leukocytosis SNOMED Code(s): 839894594, 416800896 Code(s): D72.829 - ELEVATED WHITE BLOOD CELL COUNT, UNSPECIFIED Status: Acute Current Visit: Yes (13) Pacemaker SNOMED Code(s): 704250307 Code(s): Z95.0 - PRESENCE OF CARDIAC PACEMAKER Status: Acute Current Visit: Yes (14) Pleural effusion SNOMED Code(s): 66646190 Code(s): J90 - PLEURAL EFFUSION, NOT ELSEWHERE CLASSIFIED Status: Acute Current Visit: Yes (15) Pneumonia SNOMED Code(s): 217734615 Code(s): J18.9 - PNEUMONIA, UNSPECIFIED ORGANISM Status: Acute Current Visit: Yes (16) Respiratory failure with hypercapnia SNOMED Code(s): 502835914 Code(s): J96.92 - RESPIRATORY FAILURE, UNSPECIFIED WITH HYPERCAPNIA Status : Acute Current Visit: Yes Qualifiers: Chronicity: acute on chronic Qualified Code(s): J96.22 - Acute and chronic respiratory failure with hypercapnia (17) Sepsis SNOMED Code(s): 95220029 Code(s): A41.9 - SEPSIS, UNSPECIFIED ORGANISM Status: Acute Current Visit : Yes (18) Septic shock SNOMED Code(s): 63569499 Code(s): A41.9 - SEPSIS, UNSPECIFIED ORGANISM; R65.21 - SEVERE SEPSIS WITH SEPTIC SHOCK Status: Acute Current Visit: Yes (19) Sick sinus syndrome SNOMED Code(s): 91695209 Code(s): I49.5 - SICK SINUS SYNDROME Status: Acute Current Visit: Yes (20) Thrombocytosis SNOMED Code(s): 9997079 Code(s): D47.3 - ESSENTIAL (HEMORRHAGIC) THROMBOCYTHEMIA Status: Acute Current Visit: Yes (21) Anemia SNOMED Code(s): 711553956 Code(s): D64.9 - ANEMIA, UNSPECIFIED Status: Chronic Priority: High Current Visit: Yes Qualifiers: Anemia type: due to chronic kidney disease (22) Hypotension SNOMED Code(s): 45161897 Code(s): I95.9 - HYPOTENSION, UNSPECIFIED Status: Acute Priority: High Current Visit: No Qualifiers: Hypotension type: unspecified hypotension type Qualified Code(s): I95.9 - Hypotension, unspecified (23) Hypoxia SNOMED Code(s): 387490747 Code(s): R09.02 - HYPOXEMIA Status: Acute Current Visit: No (24) Myelodysplastic syndrome SNOMED Code(s): 390228270 Code(s): D46.9 - MYELODYSPLASTIC SYNDROME, UNSPECIFIED Status: Acute Current Visit: No - Problem List Review Problem List Initiated/Reviewed/Updated: Yes - Plan Plan:: Community acquired bacterial pneumonia vs Aspiration pneumonia BL pleural effusion Acute on chronic respiratory failure with hypoxia and hypercapnia, basal requirement O2 4L Thrombocytosis / Leukocytosis Dysphagia Worsening weakness and shortness of breath prior to admission --> increased )2 requirements from 4 to 6 L NC--> Placed on BiPAP DOA--> off BiPAP now Right lung infiltrate with concern for aspiration Needed to be placed back on bipap today PLAN - Continue O2 supplementation - Scheduled nebs - RT assess and treat - F/u cultures and blood tests - Trend temperature - Vanc and levaquin - Diet as per speech therapy recommendations Acute on chronic renal insufficiency, stage IV (severe) GFR on admission 27--> 43 today PLAN - Avoid nephrotoxic agents - Renally dosed medications - Monitor I/Os - Keep balance as neutral as possible Atrial fibrillation Anticoagulated on Coumadin History of mechanical aortic valve replacement Sick sinus syndrome s/p Pacemaker Currently rate controlled HR trend 60-62 PLAN - Continue to hold warfarin - Monitor VS Hypertension MAP trend 65-84 PLAN - Hold BP meds for now Myelodysplastic syndrome Anemia Hb on admission 7.1--> transfused 2u PRBCs on DOA --> 9.1 today Transfused 2u PRBC FOBT negative PLAN - Monitor for bleeding Alzheimer's dementia Depression with anxiety No acute delirium PLAN - Let me sleep protocol as much as possible Septic shock on admission, resolved Sepsis on admission , resolved Hypokalemia, resolved PROPHYLAXIS DVT-SCDs GI-not indicated CODE STATUS: DNR/DNI DISPOSITION: Will remain in ICU for now due to being on BiPAP again. Patient will require hospitalization greater than 96 hours due to slow improvement of oxygenation and requiring BiPAP again, she will also need placement coordination with CM and SS. PT/OT consult in place.
--- NOTE | 2019-08-26 08:51 | PCM.PN ---
- General Info Date of Service: 08/23/19 Subjective Update: Feeling ok Off BiPAP Tolerating diet Still feeling week BM today - Patient Data Vitals - Most Recent: Last Vital Signs Temp 98.3 F 08/26/19 07:44 Pulse 68 08/25/19 04:00 Resp 29 H 08/26/19 07:44 BP 130/55 L 08/26/19 07:44 Pulse Ox 88 L 08/26/19 07:44 Weight - Most Recent: 65.998 kg - Exam Quality Assessment: Supplemental Oxygen, Urine Catheter General: Alert, Oriented, Cooperative, No Acute Distress HEENT: Pupils Equal, Pupils Reactive, Mucous Membr. Moist/[place] Neck: Supple, Trachea Midline, No JVD. No: Lymphadenopathy Lungs: Decreased Breath Sounds, Crackles. No: Rales, Rhonchi, Rub, Stridor, Wheezing Cardiovascular: Regular Rate, Regular Rhythm. No: Murmurs, Gallops, Rubs GI/Abdominal Exam: Normal Bowel Sounds, Soft, Non-Tender Back Exam: Normal Inspection Extremities: Normal Inspection, Slow Capillary Refill Sepsis Event Note - Evaluation Sepsis Screening Result: No Definite Risk - Focused Exam Vital Signs: Vital Signs Temp Resp BP Pulse Ox Pulse Ox 08/26/19 07:44 98.3 F 29 H 130/55 L 88 L 08/26/19 03:58 98.5 F 28 H 91 L 08/26/19 03:53 90 L 08/26/19 00:00 98.6 F 23 H 118/54 L 95 Date Exam was Performed: 08/27/19 Time Exam was Performed: 11:29 - Problem List & Annotations (1) Acute exacerbation of congestive heart failure SNOMED Code(s): 096526592, 79432615831558 Code(s): I50.9 - HEART FAILURE, UNSPECIFIED Status: Acute Current Visit: Yes Qualifiers: Heart failure type: combined systolic and diastolic Qualified Code(s): I50.43 - Acute on chronic combined systolic (congestive) and diastolic ( congestive) heart failure (2) Acute on chronic respiratory failure with hypoxia and hypercapnia SNOMED Code(s): 32107212919640 Code(s): J96.21 - ACUTE AND CHRONIC RESPIRATORY FAILURE WITH HYPOXIA; J96.22 - ACUTE AND CHRONIC RESPIRATORY FAILURE WITH HYPERCAPNIA Status: Acute Current Visit: Yes (3) Alzheimer's dementia SNOMED Code(s): 68545196 Code(s): G30.9 - ALZHEIMER'S DISEASE, UNSPECIFIED; F02.80 - DEMENTIA IN OTH DISEASES CLASSD ELSWHR W/O BEHAVRL DISTURB Status: Acute Current Visit: Yes (4) Anticoagulated on Coumadin SNOMED Code(s): 63736821 Code(s): Z79.01 - CUSTODIAL (CURRENT) USE OF ANTICOAGULANTS Status: Acute Current Visit: Yes (5) Aspiration pneumonia SNOMED Code(s): 968556375 Code(s): J69.0 - PNEUMONITIS DUE TO INHALATION OF FOOD AND VOMIT Status: Acute Current Visit: Yes (6) Chronic atrial fibrillation SNOMED Code(s): 503866759 Code(s): I48.20 - CHRONIC ATRIAL FIBRILLATION, UNSPECIFIED Status: Acute Current Visit: Yes (7) Community acquired bacterial pneumonia SNOMED Code(s): 633911559, 135881081 Code(s): J15.9 - UNSPECIFIED BACTERIAL PNEUMONIA Status: Acute Current Visit: Yes (8) Dyslipidemia SNOMED Code(s): 546295300 Code(s): E78.5 - HYPERLIPIDEMIA, UNSPECIFIED Status: Acute Current Visit : Yes (9) Dysphagia SNOMED Code(s): 94587554, 525452601 Code(s): R13.10 - DYSPHAGIA, UNSPECIFIED Status: Acute Current Visit: Yes (10) History of mechanical aortic valve replacement SNOMED Code(s): 432056895224313, 797577407, 920383567422664 Code(s): Z95.2 - PRESENCE OF PROSTHETIC HEART VALVE Status: Acute Current Visit: Yes (11) Hypertension SNOMED Code(s): 00864927 Code(s): I10 - ESSENTIAL (PRIMARY) HYPERTENSION Status: Acute Current Visit: Yes (12) Leukocytosis SNOMED Code(s): 760008105, 543705465 Code(s): D72.829 - ELEVATED WHITE BLOOD CELL COUNT, UNSPECIFIED Status: Acute Current Visit: Yes (13) Pacemaker SNOMED Code(s): 978289146 Code(s): Z95.0 - PRESENCE OF CARDIAC PACEMAKER Status: Acute Current Visit: Yes (14) Pleural effusion SNOMED Code(s): 12980833 Code(s): J90 - PLEURAL EFFUSION, NOT ELSEWHERE CLASSIFIED Status: Acute Current Visit: Yes (15) Pneumonia SNOMED Code(s): 122414319 Code(s): J18.9 - PNEUMONIA, UNSPECIFIED ORGANISM Status: Acute Current Visit: Yes (16) Respiratory failure with hypercapnia SNOMED Code(s): 132181868 Code(s): J96.92 - RESPIRATORY FAILURE, UNSPECIFIED WITH HYPERCAPNIA Status : Acute Current Visit: Yes Qualifiers: Chronicity: acute on chronic Qualified Code(s): J96.22 - Acute and chronic respiratory failure with hypercapnia (17) Sepsis SNOMED Code(s): 59582686 Code(s): A41.9 - SEPSIS, UNSPECIFIED ORGANISM Status: Acute Current Visit : Yes (18) Septic shock SNOMED Code(s): 68015083 Code(s): A41.9 - SEPSIS, UNSPECIFIED ORGANISM; R65.21 - SEVERE SEPSIS WITH SEPTIC SHOCK Status: Acute Current Visit: Yes (19) Sick sinus syndrome SNOMED Code(s): 62031802 Code(s): I49.5 - SICK SINUS SYNDROME Status: Acute Current Visit: Yes (20) Thrombocytosis SNOMED Code(s): 7463139 Code(s): D47.3 - ESSENTIAL (HEMORRHAGIC) THROMBOCYTHEMIA Status: Acute Current Visit: Yes (21) Anemia SNOMED Code(s): 251646691 Code(s): D64.9 - ANEMIA, UNSPECIFIED Status: Chronic Priority: High Current Visit: Yes Qualifiers: Anemia type: due to chronic kidney disease (22) Chronic renal insufficiency, stage IV (severe) SNOMED Code(s): 335475365 Code(s): N18.4 - CHRONIC KIDNEY DISEASE, STAGE 4 (SEVERE) Status: Acute Current Visit: No (23) Dementia SNOMED Code(s): 73106404 Code(s): F03.90 - UNSPECIFIED DEMENTIA WITHOUT BEHAVIORAL DISTURBANCE Status: Acute Current Visit: No (24) Depression with anxiety SNOMED Code(s): 333213596 Code(s): F41.8 - OTHER SPECIFIED ANXIETY DISORDERS Status: Acute Current Visit: No - Problem List Review Problem List Initiated/Reviewed/Updated: Yes - Plan Plan:: Community acquired bacterial pneumonia vs Aspiration pneumonia BL pleural effusion Acute on chronic respiratory failure with hypoxia and hypercapnia, basal requirement O2 4L Thrombocytosis / Leukocytosis Dysphagia Worsening weakness and shortness of breath prior to admission --> increased )2 requirements from 4 to 6 L NC--> Placed on BiPAP DOA--> off BiPAP now Right lung infiltrate with concern for aspiration PLAN - Continue O2 supplementation - Scheduled nebs - RT assess and treat - F/u cultures and blood tests - Trend temperature - Vanc and levaquin - Keep NPO - Speech therapy evaluation Acute on chronic renal insufficiency, stage IV (severe) GFR on admission 27--> 39 today PLAN - Avoid nephrotoxic agents - Renally dosed medications - Monitor I/Os - Keep balance as neutral as possible Atrial fibrillation Anticoagulated on Coumadin History of mechanical aortic valve replacement Sick sinus syndrome s/p Pacemaker Currently rate controlled HR trend 60-63 PLAN - Continue to hold warfarin - Monitor VS Hypertension MAP trend 71-89 PLAN - Hold BP meds for now Myelodysplastic syndrome Anemia Hb on admission 7.1--> transfused 2u PRBCs on DOA --> 8.8 today Transfused 2u PRBC FOBT negative PLAN - Monitor for bleeding Alzheimer's dementia Depression with anxiety No acute delirium PLAN - Let me sleep protocol as much as possible Septic shock on admission, resolved Sepsis on admission , resolved Hypokalemia, resolved PROPHYLAXIS DVT-SCDs GI-not indicated CODE STATUS: DNR/DNI DISPOSITION: Will remain in ICU for now. PT/OT consult in place.
--- NOTE | 2019-08-26 08:51 | PCM.PN ---
- General Info Date of Service: 08/25/19 Subjective Update: Feeling ok Off BiPAP > 24 hours Oxygenating well Tolerating diet Working with PT - Patient Data Weight - Most Recent: 65.998 kg - Exam Physical Findings Comments:: Quality Assessment: Supplemental Oxygen, Urine Catheter General: Alert, Oriented, Cooperative, No Acute Distress HEENT: Pupils Equal, Pupils Reactive, Mucous Membr. Moist/[place] Neck: Supple, Trachea Midline, No JVD, No Thyromegaly Lungs: Decreased Breath Sounds, Crackles No: Rales, Rhonchi, Wheezing. Cardiovascular: Regular Rate, Regular Rhythm. No: Murmurs, Gallops, Rubs GI/Abdominal Exam: Normal Bowel Sounds, Soft, Non-Tender, No Organomegaly. No: Distended, Guarding, Rigid, Rebound Back Exam: Normal Inspection Extremities: Normal Inspection, Slow Capillary Refill Sepsis Event Note - Evaluation Sepsis Screening Result: No Definite Risk - Focused Exam Vital Signs: Vital Signs Temp Resp BP Pulse Ox Pulse Ox 08/26/19 07:44 98.3 F 29 H 130/55 L 88 L 08/26/19 03:58 98.5 F 28 H 91 L 08/26/19 03:53 90 L 08/26/19 00:00 98.6 F 23 H 118/54 L 95 Date Exam was Performed: 08/27/19 Time Exam was Performed: 11:55 - Problem List & Annotations (1) Acute exacerbation of congestive heart failure SNOMED Code(s): 374992228, 70052465004691 Code(s): I50.9 - HEART FAILURE, UNSPECIFIED Status: Acute Current Visit: Yes Qualifiers: Heart failure type: combined systolic and diastolic Qualified Code(s): I50.43 - Acute on chronic combined systolic (congestive) and diastolic ( congestive) heart failure (2) Acute on chronic respiratory failure with hypoxia and hypercapnia SNOMED Code(s): 17852969153559 Code(s): J96.21 - ACUTE AND CHRONIC RESPIRATORY FAILURE WITH HYPOXIA; J96.22 - ACUTE AND CHRONIC RESPIRATORY FAILURE WITH HYPERCAPNIA Status: Acute Current Visit: Yes (3) Alzheimer's dementia SNOMED Code(s): 84531827 Code(s): G30.9 - ALZHEIMER'S DISEASE, UNSPECIFIED; F02.80 - DEMENTIA IN OTH DISEASES CLASSD ELSWHR W/O BEHAVRL DISTURB Status: Acute Current Visit: Yes (4) Anticoagulated on Coumadin SNOMED Code(s): 27759630 Code(s): Z79.01 - FDC (CURRENT) USE OF ANTICOAGULANTS Status: Acute Current Visit: Yes (5) Aspiration pneumonia SNOMED Code(s): 581253011 Code(s): J69.0 - PNEUMONITIS DUE TO INHALATION OF FOOD AND VOMIT Status: Acute Current Visit: Yes (6) Chronic atrial fibrillation SNOMED Code(s): 952010048 Code(s): I48.20 - CHRONIC ATRIAL FIBRILLATION, UNSPECIFIED Status: Acute Current Visit: Yes (7) Community acquired bacterial pneumonia SNOMED Code(s): 507364644, 762879868 Code(s): J15.9 - UNSPECIFIED BACTERIAL PNEUMONIA Status: Acute Current Visit: Yes (8) Dyslipidemia SNOMED Code(s): 240127350 Code(s): E78.5 - HYPERLIPIDEMIA, UNSPECIFIED Status: Acute Current Visit : Yes (9) Dysphagia SNOMED Code(s): 95285936, 737930446 Code(s): R13.10 - DYSPHAGIA, UNSPECIFIED Status: Acute Current Visit: Yes (10) History of mechanical aortic valve replacement SNOMED Code(s): 265969404459931, 448656233, 591259240390771 Code(s): Z95.2 - PRESENCE OF PROSTHETIC HEART VALVE Status: Acute Current Visit: Yes (11) Hypertension SNOMED Code(s): 53398692 Code(s): I10 - ESSENTIAL (PRIMARY) HYPERTENSION Status: Acute Current Visit: Yes (12) Leukocytosis SNOMED Code(s): 986881981, 231872279 Code(s): D72.829 - ELEVATED WHITE BLOOD CELL COUNT, UNSPECIFIED Status: Acute Current Visit: Yes (13) Pacemaker SNOMED Code(s): 282012691 Code(s): Z95.0 - PRESENCE OF CARDIAC PACEMAKER Status: Acute Current Visit: Yes (14) Pleural effusion SNOMED Code(s): 17025352 Code(s): J90 - PLEURAL EFFUSION, NOT ELSEWHERE CLASSIFIED Status: Acute Current Visit: Yes (15) Pneumonia SNOMED Code(s): 001454393 Code(s): J18.9 - PNEUMONIA, UNSPECIFIED ORGANISM Status: Acute Current Visit: Yes (16) Respiratory failure with hypercapnia SNOMED Code(s): 381877367 Code(s): J96.92 - RESPIRATORY FAILURE, UNSPECIFIED WITH HYPERCAPNIA Status : Acute Current Visit: Yes Qualifiers: Chronicity: acute on chronic Qualified Code(s): J96.22 - Acute and chronic respiratory failure with hypercapnia (17) Sepsis SNOMED Code(s): 45321699 Code(s): A41.9 - SEPSIS, UNSPECIFIED ORGANISM Status: Acute Current Visit : Yes (18) Septic shock SNOMED Code(s): 67895190 Code(s): A41.9 - SEPSIS, UNSPECIFIED ORGANISM; R65.21 - SEVERE SEPSIS WITH SEPTIC SHOCK Status: Acute Current Visit: Yes (19) Sick sinus syndrome SNOMED Code(s): 05326359 Code(s): I49.5 - SICK SINUS SYNDROME Status: Acute Current Visit: Yes (20) Thrombocytosis SNOMED Code(s): 2285525 Code(s): D47.3 - ESSENTIAL (HEMORRHAGIC) THROMBOCYTHEMIA Status: Acute Current Visit: Yes (21) Atrial flutter SNOMED Code(s): 4850436 Code(s): I48.92 - UNSPECIFIED ATRIAL FLUTTER Status: Acute Current Visit : No Qualifiers: Atrial flutter type: unspecified Qualified Code(s): I48.92 - Unspecified atrial flutter (22) Bilateral pleural effusion SNOMED Code(s): 980409335 Code(s): J90 - PLEURAL EFFUSION, NOT ELSEWHERE CLASSIFIED Status: Acute Current Visit: No (23) CHF (congestive heart failure) SNOMED Code(s): 44987676 Code(s): I50.9 - HEART FAILURE, UNSPECIFIED Status: Acute Current Visit: No (24) Chronic renal insufficiency, stage IV (severe) SNOMED Code(s): 094927733 Code(s): N18.4 - CHRONIC KIDNEY DISEASE, STAGE 4 (SEVERE) Status: Acute Current Visit: No (25) Depression with anxiety SNOMED Code(s): 470640757 Code(s): F41.8 - OTHER SPECIFIED ANXIETY DISORDERS Status: Acute Current Visit: No - Problem List Review Problem List Initiated/Reviewed/Updated: Yes - Plan Plan:: BL pleural effusion Acute on chronic respiratory failure with hypoxia and hypercapnia, basal requirement O2 4L Thrombocytosis / Leukocytosis Dysphagia Worsening weakness and shortness of breath prior to admission --> increased )2 requirements from 4 to 6 L NC--> Placed on BiPAP DOA--> off BiPAP now Right lung infiltrate with concern for aspiration Needed to be placed back on bipap 08/24 --> off since 3AM 08/24 PLAN - Continue O2 supplementation - Scheduled nebs - RT assess and treat - Trend temperature - Diet as per speech therapy recommendations Acute on chronic renal insufficiency, stage IV (severe) GFR on admission 27--> 43 today PLAN - Avoid nephrotoxic agents - Renally dosed medications - Monitor I/Os - Keep balance as neutral as possible Atrial fibrillation Anticoagulated on Coumadin History of mechanical aortic valve replacement Sick sinus syndrome s/p Pacemaker Currently rate controlled HR trend 60- PLAN - Restart warfarin - Start lovenox for bridging - Monitor VS Hypertension MAP trend 66-90 PLAN - Hold BP meds for now Myelodysplastic syndrome Anemia Hb on admission 7.1--> transfused 2u PRBCs on DOA --> 9.2 today Transfused 2u PRBC FOBT negative PLAN - Monitor for bleeding Alzheimer's dementia Depression with anxiety No acute delirium PLAN - Let me sleep protocol as much as possible Septic shock on admission, resolved Sepsis on admission , resolved Hypokalemia, resolved PROPHYLAXIS DVT-Lovenox bridging to warfarin GI-not indicated CODE STATUS: DNR/DNI DISPOSITION: Off BIPAP but still very week, starting to bridge her back to warfarin for anticoagulation today. Coordination of discharge by CM and SS PT/OT recommending SNF
[2019-08-26] MEDS: Enoxaparin 80 MG/0.8 ML Syringe SUBCUT SCH ×3 (11:41→22:31)
[2019-08-26] MEDS: Sertraline 50 MG Tab PO SCH (11:41)
[2019-08-26] MEDS: QUEtiapine 25 MG Tab PO SCH (20:42)
[2019-08-27] MEDS: Levothyroxine 75 MCG Tab PO SCH (06:00)
[2019-08-27 08:59] VITALS: BP 122/46; PULSE 60
[2019-08-27] MEDS: Enoxaparin 80 MG/0.8 ML Syringe SUBCUT SCH (12:04)
[2019-08-27] MEDS: Sertraline 50 MG Tab PO SCH (12:04)
[2019-08-27] MEDS ORDERED: Warfarin 3 MG Tab PO SCH (18:00)
== END 2019-08-27 13:05 | DRG 871 ==
LOC: JD.ED 08:17 → JD.ICU 11:11
PROVIDERS: ADMIT Emergency Medicine; ATTEND Internal Medicine
PROC: 30233N1 Transfusion of Nonautologous Red Blood Cells into Peripheral Vein, Percutaneous Approach (ICD-10-PCS; principal; 2019-08-20)
DX: J18.9 Pneumonia, unspecified organism (principal); A41.9 Sepsis, unspecified organism; J96.22 Acute and chronic respiratory failure with hypercapnia; G93.41 Metabolic encephalopathy; I50.43 Acute on chronic combined systolic (congestive) and diastolic (congestive) heart failure; N18.9 Chronic kidney disease, unspecified; J69.0 Pneumonitis due to inhalation of food and vomit; H35.379 Puckering of macula, unspecified eye; R65.21 Severe sepsis with septic shock; E78.00 Pure hypercholesterolemia, unspecified; J96.21 Acute and chronic respiratory failure with hypoxia; Z87.11 Personal history of peptic ulcer disease; J44.0 Chronic obstructive pulmonary disease with (acute) lower respiratory infection; G30.0 Alzheimer's disease with early onset; I48.20 Chronic atrial fibrillation, unspecified; I48.92 Unspecified atrial flutter; N18.4 Chronic kidney disease, stage 4 (severe); I13.0 Hypertensive heart and chronic kidney disease with heart failure and stage 1 through stage 4 chronic kidney disease, or unspecified chronic kidney disease; N17.9 Acute kidney failure, unspecified; I49.5 Sick sinus syndrome; D47.3 Essential (hemorrhagic) thrombocythemia; F41.8 Other specified anxiety disorders; E87.6 Hypokalemia; Z79.890 Hormone replacement therapy; D46.9 Myelodysplastic syndrome, unspecified; R73.9 Hyperglycemia, unspecified; Z66 Do not resuscitate; D63.1 Anemia in chronic kidney disease; H54.7 Unspecified visual loss; E78.5 Hyperlipidemia, unspecified; M19.90 Unspecified osteoarthritis, unspecified site; E03.9 Hypothyroidism, unspecified; G30.9 Alzheimer's disease, unspecified; F02.80 Dementia in other diseases classified elsewhere, unspecified severity, without behavioral disturbance, psychotic disturbance, mood disturbance, and anxiety; Z88.1 Allergy status to other antibiotic agents; Z88.2 Allergy status to sulfonamides; Z88.8 Allergy status to other drugs, medicaments and biological substances; Z79.01 Long term (current) use of anticoagulants; Z79.899 Other long term (current) drug therapy; Z90.89 Acquired absence of other organs; Z95.2 Presence of prosthetic heart valve; Z98.890 Other specified postprocedural states; Z90.49 Acquired absence of other specified parts of digestive tract; Z90.710 Acquired absence of both cervix and uterus; Z90.721 Acquired absence of ovaries, unilateral; Z90.79 Acquired absence of other genital organ(s); Z95.0 Presence of cardiac pacemaker
CPT/HCPCS: 36415; 36430; 36600; 51702; 71045; 71045-26; 80048; 80053; 81001; 82553; 82803; 83605; 83735; 83880; 84443; 84484; 85007; 85014; 85018; 85025; 85027; 85610; 85652; 85730; 86140; 86850; 86900; 86901; 86922; 87040; 87641; 87804; 92610-GN; 93005; 93010; 93306; 94640; 94660; 94762; 96374; 97110-GO; 97110-GP; 97116-GP; 97162-GP; 97166-GO; 97530-GO; 97530-GP; 97535-GO; 99285; 99285-25; A9270-GY; C9113; J1650; J1940; J1956; J3370; J3480; J7050; J7060; J7620-GY; P9016